=== PATIENT | male | born 1970 | race Caucasian/White ===

== ENCOUNTER 2022-03-03 23:38 | Observation (INO) | payer BC, SELFPAY ==
[2022-03-03 23:42] VITALS: BP 151/114; PULSE 87; O2SAT 100
[2022-03-04] VITALS (12 sets, daily range): BP systolic 137–173; BP diastolic 67–102; PULSE 60–94; RESP 16–24; TEMP 36.4–36.7; O2SAT 94–100; BMI 21.1
--- NOTE | 2022-03-04 00:04 | CRLHL7_ITS ---
For Patients: As a result of the Century Cures Act, medical imaging exams and procedure reports are released immediately into your electronic medical record. You may view this report before your referring provider. If you have questions, please contact your health care provider. INDICATION: Epigastric abdominal pelvic pain TECHNIQUE: CT Abdomen and pelvis with i.v. contrast. Coronal and sagittal reformats were obtained. CONTRAST: 71 mL Isovue 370 COMPARISON: None FINDINGS: Lower chest: Unremarkable. Liver: Unremarkable. Spleen: Unremarkable. Pancreas: There is a hypodense ill-defined lesion within the pancreatic head measuring 1.5 cm. Gallbladder: Unremarkable. Kidney: Unremarkable. No kidney or ureteral stones or obstruction seen. Adrenal: Unremarkable. Bowel: Moderate wall thickening of the gastric antrum is present. The appendix is not visualized. Vascular: Unremarkable. Lymph: Unremarkable. Peritoneum: Unremarkable. No pneumoperitoneum is seen. No significant ascites is noted. Pelvis: Unremarkable. Soft tissue: Unremarkable. Bone: Unremarkable for age. IMPRESSIONS: 1. Moderate wall thickening of the gastric antrum is present. This may be due to gastritis or peptic ulcer disease and confirmation with barium GI series or endoscopy is recommended. 2. There is a hypodense ill-defined lesion within the pancreatic head measuring 1.5 cm. Assessment with outpatient pancreatic MRI is recommended to exclude a pancreatic mass. Dictated by Hayden Gambino MD @ 03/04/2022 1:16:36 AM Please note that all CT scans at this facility use dose modulation, iterative reconstruction, and/or weight-based dosing when appropriate to reduce radiation dose to as low as reasonably achievable. Dictated by: Hayden Gambino MD @ 03/04/2022 01:16:39 (Electronically Signed)
[2022-03-04] MEDS: 0.9 % SODIUM CHLORIDE 1000 ml 1,000 ML IV (00:25)
[2022-03-04] MEDS: ONDANSETRON 2 MG/ML inj 4 MG IVP (00:25)
[2022-03-04] MEDS: HYDROmorphone 0.5 mg/0.5 ml inj 1 MG IVP (00:25)
[2022-03-04 00:35] LABS: Lactate Sepsis w/Reflex* 2.7 mmol/L (0.5-1.9)
[2022-03-04 00:36] LABS: Basophils Percent Auto 0.3 % (0.0-3.0); Eosinophils Percent Auto 1.8 % (0.0-7.0); Hematocrit 51.4 % (37.0-53.0); Hemoglobin* 17.9 gm/dL (13.5-17.5); Lymphocytes Percent Auto 15.7 % (20-44); Mean Corpuscular HGB Conc 35 gm/dL (32-36); Mean Corpuscular Hemoglobin 32 pg (26-34); Mean Corpuscular Volume 92 fL (80-100); Monocytes Percent Auto 3.4 % (0.0-11.0); Neutrophils Percent Auto 78.1 % (42.0-72.0); Platelet Count* 585 K/uL (140-440); RDW Coefficient of Variation % 13.5 % (11.5-15.5); White Blood Count* 14.81 K/uL (4.50-11.00)
[2022-03-04 00:37] LABS: Slide Review Reflex No
[2022-03-04 00:57] LABS: Albumin* 5.2 g/dL (3.3-5.0); Chloride* 100 mmol/L (96-114); Sodium* 141 mmol/L (135-149)
[2022-03-04 00:58] LABS: Potassium* 4.4 mmol/L (3.6-5.1)
[2022-03-04 00:59] LABS: Magnesium* 1.8 mg/dL (1.5-2.6)
[2022-03-04 01:00] LABS: Bilirubin Total* 0.5 mg/dL (0.1-1.5); Creatinine* 0.8 mg/dL (0.5-1.5); Estimated Glomerular Filt Rate 107 ml/min
[2022-03-04 01:01] LABS: Alanine Aminotransferase* 17 U/L (4-50); Alkaline Phosphatase* 88 U/L (40-150); Aspartate Amino Transferase* 30 U/L (12-35); Blood Urea Nitrogen* 13 mg/dL (7-30); Calcium* 10.4 mg/dL (8.4-10.6); Carbon Dioxide* 24 mmol/L (20-32); Glucose* 121 mg/dL (60-115); Total Protein* 9.5 g/dL (6.0-8.3)
[2022-03-04 01:03] LABS: Ethanol* < 0.01 % (0.01-0.03)
[2022-03-04 01:13] LABS: C Reactive Protein* < 0.5 mg/dL (0.5-1.0)
[2022-03-04 01:25] LABS: SARS PCR* Negative SARS-CoV-2 (Negative)
[2022-03-04 01:38] LABS: Lipase* 4043 U/L (23-300)
--- NOTE | 2022-03-04 01:41 | PC.NURSE ---
Patient reporting significant improvement in pain after pain medication. Rates pain 2/10.
--- NOTE | 2022-03-04 02:21 | ED.ABDPAIN ---
HPI - Abdominal Pain General Chief Complaint: Abdominal Pain Stated Complaint: Pancreatitis attack Time Seen by Provider: 03/03/22 23:51 Source: patient and RN notes reviewed Mode of arrival: ambulatory Limitations: no limitations History of Present Illness HPI narrative: 51-year-old man presenting to the emergency department with complaint of severe epigastric area pain. Began about 2 hours prior to presentation. He has had no fever. Does have nausea. Has not been vomiting. In November of this year apparently was hospitalized for pancreatitis overnight at [facility]. Since that time has had 2 more episodes of pancreatitis. He says his last 2 episodes actually occurred after 2 days without alcohol. Is is is generally drinking less than he used to and last drink was last night. Says intended to followup since hospitalization but just has not. Is not convinced of this pain correlates necessarily with alcohol consumption Related Data Home Medications Medication Instructions Recorded Confirmed No Known Home Medications 03/03/22 03/03/22 Allergies Allergy/AdvReac Type Severity Reaction Status Date / Time No Known Drug Allergies Allergy Verified 03/04/22 12:12 Review of Systems Status of ROS Reports: 6 or more systems reviewed and unremarkable except as noted in History and below [facility] Medical History (Updated 03/04/22 @ 16:37 by Lan Mchugh MD) Alcohol abuse Cholelithiasis Hypercholesteremia Obstructive sleep apnea Smoking Stroke Surgical History (Updated 03/04/22 @ 11:00 by Marcell Palma MD) History of carotid endarterectomy Social History Smoking Status: Current every day smoker What tobacco products do you use: cigarettes Second hand tobacco smoke exposure: Yes How often do you have a drink containing alcohol: 4 or more times a week How many standard drinks containing alcohol do you have on a typical day: 3 or 4 How often do you have six or more drinks on one occasion: Monthly AUDIT-C Alcohol total score: 7 Non-prescribed substance use: denies use Exam Narrative: Exam Narrative: Appropriately nourished. Mildly agitated in apparent severe pain he is pacing. Little breathless. Smells of cigarette smoke. Head is atraumatic. Oropharynx is little dry and hyperemic. Lungs with equal expansion excursion appear to be clear. Cardiovascular with regular rate and rhythm Abdomen with diminished bowel sounds is very tender in epigastrium. He resists exam. Guards. Extremities are well perfused and without edema. Moving without difficulty. Cranial nerves 2-12 intact. Speaking easily Const: Vital Signs, click to edit/add: Vital Signs - 24 hr 03/03/22 23:42 03/04/22 01:10 03/04/22 02:30 Pulse Rate [Right Pulse Oximeter] 87 91 91 Respiratory Rate 18 16 Blood Pressure [Ri ght Upper Arm] 151/114 H 138/67 159/91 H Pulse Oximetry 100 96 98 Oxygen Delivery Me thod Room Air Room Air Room Air Documenting provider has reviewed patient's vital signs: yes Course Course Hospital Course: Exam and interview as above. Established IV for pain relief. We will image as well as no baseline Reevaluation(s) Reevaluation #1: Markedly improved with initiation of fluids, Zofran and 1 mg of IV Dilaudid. Vital Signs Vital signs: Initial Vital Signs Pulse Rate 87 03/03/22 23:42 Blood Pressure 151/114 H 03/03/22 23:42 Blood Pressure Mean 126 03/03/22 23:42 Blood Pressure Position Sitting 03/03/22 23:42 Pulse Oximetry 100 03/03/22 23:42 Oxygen Delivery Method 03/03/22 23:42 Vital Signs Pulse Rate 87 03/03/22 23:42 Blood Pressure 151/114 H 03/03/22 23:42 Pulse Oximetry 100 03/03/22 23:42 Oxygen Delivery Method 03/03/22 23:42 Temperature 97.8 F 03/04/22 15:00 Pulse Rate 65 03/04/22 15:00 Respiratory Rate 16 03/04/22 15:00 Blood Pressure 153/90 H 03/04/22 15:00 Pulse Oximetry 95 03/04/22 15:00 Oxygen Delivery Method 03/04/22 15:00 MDM - Abdominal Pain MDM Narrative Medical decision making narrative: Will need imaging. I ordered and reviewed IV contrasted CT of abdomen and pelvis. IMPRESSIONS: 1. Moderate wall thickening of the gastric antrum is present. This may be due to gastritis or peptic ulcer disease and confirmation with barium GI series or endoscopy is recommended. 2. There is a hypodense ill-defined lesion within the pancreatic head measuring 1.5 cm. Assessment with outpatient pancreatic MRI is recommended to exclude a pancreatic mass. Dictated by Hayden Gambino MD @ 03/04/2022 1:16:36 AM White count is over 14,000 the and lipase is over 4000 He says this is the worst episode. I did review images. Concerning findings on CT noted by Radiology review requiring further imaging. This could be done outpatient however I would like to admit for further pain control and bowel rest. Further evaluation. Since he had not actually been vomiting I had not ordered a lactate and I do not see evidence of sepsis otherwise. Medical Records Attestation: I reviewed the patient's medical records. Lab Data Attestation: I reviewed the patient's lab results. Labs: Lab Results 03/04/22 03/04/22 03/04/22 Range/Units 00:25 00:25 00:25 WBC 14.81 H (4.50-11.00) K/uL RBC 5.60 (4.30-5.90) m/uL Hgb 17.9 H (13.5-17.5) gm/dL Hct 51.4 (37.0-53.0) % MCV 92 (80-100) fL MCH 32 (26-34) pg MCHC 35 (32-36) gm/dL RDW Coeff of Waldemar 13.5 (11.5-15.5) % Plt Count 585 H (140-440) K/uL Neut % (Auto) 78.1 H (42.0-72.0) % Lymph % (Auto) 15.7 L (20-44) % [place] % (Auto) 3.4 (0.0-11.0) % Eos % (Auto) 1.8 (0.0-7.0) % Baso % (Auto) 0.3 (0.0-3.0) % Neut # (Auto) 11.60 H (1.7-7.0) K/uL Lymph # (Auto) 2.30 (0.90-2.90) K/uL [place] # (Auto) 0.50 (0.00-0.90) K/UL Eos # (Auto) 0.30 (0.00-0.50) K/uL Baso # (Auto) 0.00 (0.00-0.30) K/uL Abs Immat Gran (auto) 0.10 (0.00-0.30) K/uL Sodium 141 (135-149) mmol/L Potassium 4.4 (3.6-5.1) mmol/L Chloride 100 (96-114) mmol/L Carbon Dioxide 24 (20-32) mmol/L BUN 13 (7-30) mg/dL Creatinine 0.8 (0.5-1.5) mg/dL Estimated GFR 107 ml/min Glucose 121 H (60-115) mg/dL Venous Lactic Acid (Serial Order) Calcium 10.4 (8.4-10.6) mg/dL Magnesium 1.8 (1.5-2.6) mg/dL Total Bilirubin 0.5 (0.1-1.5) mg/dL AST 30 (12-35) U/L ALT 17 (4-50) U/L Alkaline Phosphatase 88 (40-150) U/L C-Reactive Protein < 0.5 L (0.5-1.0) mg/dL Total Protein 9.5 H (6.0-8.3) g/dL Albumin 5.2 H (3.3-5.0) g/dL Lipase 4043 H (23-300) U/L Ethyl Alcohol < 0.01 L (0.01-0.03) % SARS-CoV-2 (PCR) (Negative) 03/04/22 03/04/22 Range/Units 00:25 00:25 WBC (4.50-11.00) K/uL RBC (4.30-5.90) m/uL Hgb (13.5-17.5) gm/dL Hct (37.0-53.0) % MCV (80-100) fL MCH (26-34) pg MCHC (32-36) gm/dL RDW Coeff of Waldemar (11.5-15.5) % Plt Count (140-440) K/uL Neut % (Auto) (42.0-72.0) % Lymph % (Auto) (20-44) % [place] % (Auto) (0.0-11.0) % Eos % (Auto) (0.0-7.0) % Baso % (Auto) (0.0-3.0) % Neut # (Auto) (1.7-7.0) K/uL Lymph # (Auto) (0.90-2.90) K/uL [place] # (Auto) (0.00-0.90) K/UL Eos # (Auto) (0.00-0.50) K/uL Baso # (Auto) (0.00-0.30) K/uL Abs Immat Gran (auto) (0.00-0.30) K/uL Sodium (135-149) mmol/L Potassium (3.6-5.1) mmol/L Chloride (96-114) mmol/L Carbon Dioxide (20-32) mmol/L BUN (7-30) mg/dL Creatinine (0.5-1.5) mg/dL Estimated GFR ml/min Glucose (60-115) mg/dL Venous Lactic Acid (Serial Order) Calcium (8.4-10.6) mg/dL Magnesium (1.5-2.6) mg/dL Total Bilirubin (0.1-1.5) mg/dL AST (12-35) U/L ALT (4-50) U/L Alkaline Phosphatase (40-150) U/L C-Reactive Protein (0.5-1.0) mg/dL Total Protein (6.0-8.3) g/dL Albumin (3.3-5.0) g/dL Lipase (23-300) U/L Ethyl Alcohol (0.01-0.03) % SARS-CoV-2 (PCR) Negative SARS-CoV-2 (Negative) IV contrasted CT of abdomen and pelvis IMPRESSIONS: 1. Moderate wall thickening of the gastric antrum is present. This may be due to gastritis or peptic ulcer disease and confirmation with barium GI series or endoscopy is recommended. 2. There is a hypodense ill-defined lesion within the pancreatic head measuring 1.5 cm. Assessment with outpatient pancreatic MRI is recommended to exclude a pancreatic mass. Dictated by Hayden Gambino MD @ 03/04/2022 1:16:36 AM Please note that all CT scans at this facility use dose modulation, iterative reconstruction, and/or weight-based dosing when appropriate to reduce radiation dose to as low as reasonably achievable. Dictated by: Hayden Gambino MD @ 03/04/2022 01:16:39 Discharge Plan Discharge Clinical Impression: Abdominal pain, Acute pancreatitis
[2022-03-04] MEDS: LACTATED RINGERS 1000 ML 1,000 ML IV (02:46)
--- NOTE | 2022-03-04 04:15 | PC.NURSE ---
Report to m/s RN.
--- NOTE | 2022-03-04 06:14 | PC.NURSE ---
Admitted today at 0430 from the ED with abdominal pain. Patient on arrival Still having abd pain but manageable. Vitals- elevated SBP otherwise stable. Afebrile. Pain rating at 2/10; received Dilaudid in the ED. Alert and oriented x4. Lngs clear. Self ambulatory in the room without any difficulties. Maintaining clear liquid diet. Will continue to monitor and assess
--- NOTE | 2022-03-04 07:20 | W.PM.CROSSCO ---
Assessment and Plan Assessment and plan (1) Pancreatitis: Status: Acute (2) Hypertension: Status: Acute Plan [facility] eHospitalist note 51-year-old male presents with abdominal pain. Very severe in nature. Onset the night prior. Feels like pancreatitis pain that he has had in the past. He does continue to drink alcohol but reports he has cut down significantly and he no longer drinks daily but has trouble quantifying the amount he is currently is drinking. Denies history of alcohol withdrawal.. His original episode of pancreatitis was treated at the [facility] in November of this year. He since has stopped a few medications he was taking for blood pressure that can cause pancreatitis. In the emergency department he had a thorough evaluation including a CT abdomen pelvis with moderate wall thickening of the gastric antrum possibly due to gastritis or peptic ulcer disease consider endoscopy or barium GI series. Also hypodense ill-defined lesion within the pancreatic head measuring 1.5 cm. Assessment with outpatient pancreatic MRI is recommended. Laboratory studies include a lipase of 4043. Alcohol is undetectable COVID is negative. Of note his total protein is quite high at 9.5. CRP is a 7.5. LFTs are within normal limits. As his renal function. CBC with multiple abnormalities including a WBC of 14.8, hemoglobin of 17.9 and platelet count of 585. Home Medications: see EMR Pertinent Medical History: Pancreatitis, alcohol use, hypertension Exam (performed via interactive video with assistance of bedside nurse): General: alert, cooperative, no acute distress Lungs: clear to auscultation bilaterally without crackle or wheeze CV: regular rate and rhythm without loud murmur rub or gallop Abd: minimal tenderness with palpation done by bedside nurse Ext: no pitting edema noted Assessment and Plan Pancreatitis ? strict NPO, LR @150, PRN dilaudid and Zofran. Discussed importance of eliminating alcohol as a factor. Pancreatic head lesion -Needs MRCP ? possibly outpatient. Requested records from the [facility] Gastric thickening ? IV protonix daily, consider EGD Alcohol use. ? unclear current usage, ciwa not ordered but could be considered along with chem dep consult if available. Leukocytosis, erythrocytosis, thrombocytosis, elevated protein ? suspect related to dehydration and acute illness but will need followup outpatient as well to ensure no myeloproliferative process.
[2022-03-04] MEDS: LACTATED RINGERS 1000 ML 1,000 ML 250 ML IV (08:24)
[2022-03-04] MEDS: LACTATED RINGERS 1000 ML 1,000 ML 150 ML IV (08:24)
--- NOTE | 2022-03-04 08:28 | CRLHL7_ITS ---
For Patients: As a result of the Century Cures Act, medical imaging exams and procedure reports are released immediately into your electronic medical record. You may view this report before your referring provider. If you have questions, please contact your health care provider. Indication: Pancreatic lesion on CT. History of pancreatitis. Technique: MRI of the abdomen without and with 20 cc Dotarem IV contrast. Comparison: CT of the abdomen and pelvis 03/04/2022. Findings: Non cirrhotic configuration of the liver. No hepatic steatosis. There are two small benign hemangiomas in the lateral segment of the left hepatic lobe. No suspicious liver lesions. Hepatic and portal veins are patent. The gallbladder, spleen, and adrenal glands are negative. No biliary dilation. There is a 1.7 x 1.6 x 2.1 cm lesion in the pancreatic head which demonstrates heterogeneous T1 and T2 signal with no appreciable post-contrast enhancement (series 8 image 19, series 5 image 15, series 12 image 38, series 16 image 42). There is a focus of diffusion restriction along the left aspect of the lesion. Mild atrophy of the upstream pancreatic parenchyma. The upstream pancreatic duct is mildly prominent measuring 3 mm in diameter. No significant peripancreatic inflammation. Symmetric enhancement of the kidneys. No hydronephrosis. No bowel dilation. Moderate wall thickening of the gastric antrum. There is a subcentimeter T2 isointense rim enhancing lesion along the wall of the proximal transverse duodenum (series 8 image 27 and series 14 image 56). No free fluid or lymphadenopathy in the upper abdomen. Impression: 1. 1.7 x 1.6 x 2.1 cm heterogeneous lesion in the pancreatic head with no appreciable post-contrast enhancement. Upstream pancreatic parenchymal atrophy and mild prominence of the pancreatic duct. Differential considerations include a complex pseudocyst/side-branch IPMN or other cystic neoplasm. Recommend further evaluation with EUS. 2. Moderate wall thickening of the gastric antrum. 3. Subcentimeter lesion along the wall of the proximal transverse duodenum. This could be further evaluated with endoscopy. 4. Findings discussed with Molly Palma at 1:01 p.m. on 03/04/2022. Dictated by Karine Bryant MD @ 03/04/2022 1:09:54 PM (Electronically Signed)
[2022-03-04] MEDS: PANTOPRAZOLE SODIUM 40 MG INJ IVP (09:18)
[2022-03-04 09:21] LABS: Basophils Percent Auto 0.2 % (0.0-3.0); Eosinophils Percent Auto 3.4 % (0.0-7.0); Hematocrit 43.6 % (37.0-53.0); Immature Granulocytes Abs Auto 0.01 K/uL (0.00-0.30); Lymphocytes Percent Auto 21.2 % (20-44); Mean Corpuscular HGB Conc 34 gm/dL (32-36); Mean Corpuscular Hemoglobin 32 pg (26-34); Mean Corpuscular Volume 93 fL (80-100); Monocytes Percent Auto 5.7 % (0.0-11.0); Neutrophils Percent Auto 69.4 % (42.0-72.0); Platelet Count* 443 K/uL (140-440); RDW Coefficient of Variation % 13.3 % (11.5-15.5); Red Blood Count 4.67 m/uL (4.30-5.90); White Blood Count* 13.43 K/uL (4.50-11.00)
[2022-03-04 09:27] LABS: Slide Review Reflex No
[2022-03-04 09:54] LABS: Albumin* 3.7 g/dL (3.3-5.0)
[2022-03-04] MEDS: HYDROmorphone 0.5 mg/0.5 ml inj IVP ×4 (09:54→23:23)
[2022-03-04 09:55] LABS: Chloride* 102 mmol/L (96-114); Potassium* 3.9 mmol/L (3.6-5.1); Sodium* 135 mmol/L (135-149)
[2022-03-04 09:57] LABS: Aspartate Amino Transferase* 23 U/L (12-35); Bilirubin Total* 0.5 mg/dL (0.1-1.5); Carbon Dioxide* 24 mmol/L (20-32); Creatinine* 0.6 mg/dL (0.5-1.5); Est. Creatinine Clearance* 141.21; Estimated Glomerular Filt Rate 117 ml/min; Total Protein* 6.8 g/dL (6.0-8.3)
[2022-03-04 09:58] LABS: Alanine Aminotransferase* 11 U/L (4-50); Alkaline Phosphatase* 57 U/L (40-150); Blood Urea Nitrogen* 12 mg/dL (7-30); Calcium* 8.6 mg/dL (8.4-10.6); Glucose* 99 mg/dL (60-115)
--- NOTE | 2022-03-04 10:43 | P.IMHP_ITS ---
Hospitalist- H&P: HPI History of Present Illness Date Seen: 03/04/22 Chief complaint: Pancreatitis attack Narrative: Eduardo Morillo is a 51 year old male admitted through the emergency department with epigastric pain that began last evening. Patient reports that he was feeling fine yesterday. He was eating a normal diet. He had no symptoms of illness. Last evening he began to have epigastric pain which became increasingly severe. He reports this pain is similar to previous episodes of pancreatitis. He was hospitalized at [facility] in November for pancreatitis. At that time he was found to have gallstones without evidence of obstruction. It was felt his pancreatitis was more likely due to alcohol though he was referred to General surgery at discharge. He did have a consult for cholelithiasis with General surgery. At that time recommendation was monitoring for symptoms of bili obstruction from gallstones and abstinence from alcohol. Patient continues to smoke cigarettes and continues to drink alcohol. He reports he has not drink daily. He has not had problems with alcohol withdrawal. Patient reports no postprandial symptoms such as pain, nausea, vomiting. He has had no change in the appearance of his stools. He is noted to have thickening of the gastric antrum on CT scan. Also noted is a 1.5 cm poorly defined lesion in the head of the pancreas. Further evaluation is recommended by the radiologist. Review of Systems Narrative: Patient reports he has been generally doing well up until the onset of epigastric pain last night. He has been eating normally. He has had no fever. No shortness of breath cough or chest pain. The epigastric pain does radiate to his flank sent to his back to some degree. [facility] Medical History (Updated 03/04/22 @ 11:05 by Marcell Palma MD) Alcohol abuse Cholelithiasis Hypercholesteremia Obstructive sleep apnea Smoking Stroke Surgical History (Updated 03/04/22 @ 11:00 by Marcell Palma MD) History of carotid endarterectomy Social History Smoking Status: Current every day smoker What tobacco products do you use: cigarettes Second hand tobacco smoke exposure: Yes How often do you have a drink containing alcohol: 4 or more times a week How many standard drinks containing alcohol do you have on a typical day: 3 or 4 How often do you have six or more drinks on one occasion: Monthly AUDIT-C Alcohol total score: 7 Non-prescribed substance use: denies use Meds Home Medications and Allergies Home Medications Medication Instructions Recorded Confirmed Type No Known Home Medications 03/03/22 03/03/22 History Allergies Allergy/AdvReac Type Severity Reaction Status Date / Time No Known Drug Allergies Allergy Verified 03/03/22 23:48 Exam Narrative: Exam Narrative: He is alert and appears in no obvious distress. He gives his own history. Eyes are normal. Sclerae nonicteric. Oropharynx with dry mucous membranes. Neck is supple without mass or adenopathy. No tenderness. Respirations are clear to auscultation. He has decreased breath sounds. No wheezing rales or rhonchi. Cardiovascular: S1, S2, regular rate and rhythm. No murmur gallop or rub. Abdomen: Bowel sounds are active. Abdomen is soft. He has mild to moderate epigastric tenderness. No palpable mass. No peritonitis. Extremities with intact pulses and sensation. Has no edema. He moves all 4 extremities well. No rash. No jaundice. Const: Vital Signs, click to edit/add: Vital Signs - 24 hr 03/03/22 23:42 03/04/22 01:10 03/04/22 02:30 Temperature Pulse Rate [Bilate ral Dorsalis Pedis ] Pulse Rate [Pulse Oximeter] Pulse Rate [Right Pulse Oximeter] 87 91 91 Respiratory Rate 18 16 Blood Pressure [Le ft Arm] Blood Pressure [Ri ght Upper Arm] 151/114 H 138/67 159/91 H Pulse Oximetry 100 96 [facility] 03/04/22 04:00 03/04/22 05:46 03/04/22 05:49 Temperature 97.7 F 97.7 F Pulse Rate [Bilate ral Dorsalis Pedis ] Pulse Rate [Pulse Oximeter] 68 68 Pulse Rate [Right Pulse Oximeter] 80 Respiratory Rate 16 16 16 Blood Pressure [Le ft Arm] 169/91 H 169/91 H Blood Pressure [Ri ght Upper Arm] 162/102 H Pulse Oximetry 98 98 97 Oxygen Delivery De thod Room Air Room Air Room Air 03/04/22 06:10 03/04/22 06:36 03/04/22 07:00 Temperature 97.7 F Pulse Rate [Bilate ral Dorsalis Pedis ] 73 Pulse Rate [Pulse Oximeter] 68 Pulse Rate [Right Pulse Oximeter] Respiratory Rate 16 16 Blood Pressure [Le ft Arm] 169/91 H Blood Pressure [Ri ght Upper Arm] Pulse Oximetry 97 97 Oxygen Delivery Me thod Room Air Room Air 03/04/22 07:00 Temperature 98.1 F Pulse Rate [Bilate ral Dorsalis Pedis ] Pulse Rate [Pulse Oximeter] Pulse Rate [Right Pulse Oximeter] Respiratory Rate 16 Blood Pressure [Le ft Arm] 169/88 H Blood Pressure [Ri ght Upper Arm] Pulse Oximetry 99 Oxygen Delivery Me thod Room Air Documenting provider has reviewed patient's vital signs: yes Hospitalist - H&P: Result Labs Labs: Short CBC 03/04/22 03/04/22 Range/Units 00:25 09:10 WBC 14.81 H 13.43 H (4.50-11.00) K/uL Hgb 17.9 H 15.0 (13.5-17.5) gm/dL Hct 51.4 43.6 (37.0-53.0) % Plt Count 585 H 443 H (140-440) K/uL BMP 03/04/22 03/04/22 00:25 09:10 Sodium 141 135 Potassium 4.4 3.9 Chloride 100 102 Carbon Dioxide 24 24 BUN 13 12 Creatinine 0.8 0.6 Glucose 121 H 99 Calcium 10.4 8.6 Liver Function 03/04/22 03/04/22 Range/Units 00:25 09:10 Total Bilirubin 0.5 0.5 (0.1-1.5) mg/dL AST 30 23 (12-35) U/L ALT 17 11 (4-50) U/L Alkaline Phosphatase 88 57 (40-150) U/L Albumin 5.2 H 3.7 (3.3-5.0) g/dL Imaging CT scan - abdomen: Radiologist's impression: [place] [address] Diagnostic Imaging Report Patient: Eduardo Morillo MR#: [id number] : 1970 Acct:[id number] Loc: ED Service Date: 03/04/[address]: Ordering Physician: Lan Mchugh MD Date of Service: 03/04/22 Procedure(s): CT abdomen pelvis w con Accession Number(s): [id number] cc: Lan Mchugh MD~ For Patients:? As a result of the Century Cures Act, medical imaging exams and procedure reports are released immediately into your electronic medical record.? You may view this report before your referring provider.? If you have questions, please contact your health care provider. INDICATION: Epigastric abdominal pelvic pain TECHNIQUE: CT Abdomen and pelvis with i.v. contrast. Coronal and sagittal reformats were obtained. CONTRAST: 71 mL Isovue 370 COMPARISON: None FINDINGS: Lower chest: Unremarkable. Liver: Unremarkable. Spleen: Unremarkable. Pancreas: There is a hypodense ill-defined lesion within the pancreatic head measuring 1.5 cm. Gallbladder: Unremarkable. Kidney: Unremarkable. No kidney or ureteral stones or obstruction seen. Adrenal: Unremarkable. Bowel: Moderate wall thickening of the gastric antrum is present. The appendix is not visualized. Vascular: Unremarkable. Lymph: Unremarkable. Peritoneum: Unremarkable. No pneumoperitoneum is seen. No significant ascites is noted. Pelvis: Unremarkable. Soft tissue: Unremarkable. Bone: Unremarkable for age. IMPRESSIONS: 1. Moderate wall thickening of the gastric antrum is present. This may be due to gastritis or peptic ulcer disease and confirmation with barium GI series or endoscopy is recommended. 2. There is a hypodense ill-defined lesion within the pancreatic head measuring 1.5 cm. Assessment with outpatient pancreatic MRI is recommended to exclude a pancreatic mass. Dictated by Hayden Gambino MD @ 03/04/2022 1:16:36 AM Please note that all CT scans at this facility use dose modulation, iterative reconstruction, and/or weight-based dosing when appropriate to reduce radiation dose to as low as reasonably achievable. Dictated by: Hayden Gambino MD @ 03/04/2022 01:16:39 Assessment and Plan Assessment and plan (1) Pancreatitis: Status: Acute Assessment and Plan: Most likely due to alcohol abuse. Other considerations including gallstone pancreatitis or pancreatitis related to lesion in the pancreas. Obtained pancreatic MRI to evaluate. IV fluids, clear liquid diet, pain medication. (2) Alcohol abuse: Status: Acute Assessment and Plan: Recommend that he stop drinking. Ongoing alcohol use in the context of recurrent pancreatitis remains a concern (3) Cholelithiasis: Status: Acute Assessment and Plan: Monitor for evidence of biliary obstruction (4) Smoking: Status: Acute Assessment and Plan: Another risk factor for pancreatitis (5) Hypertension: Status: Acute Assessment and Plan: Previously on blood pressure medications which were stopped due to concern about pancreatitis (6) Pancreatic lesion: Status: Acute Assessment and Plan: MRI of pancreas to evaluate (7) Abnormal laboratory test result: Status: Acute Assessment and Plan: Patient has elevated hemoglobin which may be related to smoking. Other lab suggest hemoconcentration. Continue hydration and recheck in the morning. Plan Patient is admitted for pain control, IV fluids, further evaluation. Total time spent today is 80 minutes, 50 minutes in coordination of care and discussing with patient and other providers management of pancreatitis, alcohol abuse, findings on CT.
--- NOTE | 2022-03-04 15:15 | PC.NURSE ---
Admitted today at 0430 from the ED with abdominal pain. Pt. rates pain 6/10 IV Dilauded PRN administered, pt. able to rest. Afebrile. Alert and oriented x4. Lngs clear. Self ambulatory in the room without any difficulties. Maintaining clear liquid diet. Will continue to monitor and assess
[2022-03-04] MEDS: OMEPRAZOLE 20 MG CAPSULE DR PO (21:20)
[2022-03-04] MEDS: OXYCODONE 5 MG TABLET PO (21:30)
[2022-03-05] VITALS (8 sets, daily range): BP systolic 127–181; BP diastolic 76–100; PULSE 66–88; RESP 18–20; TEMP 36.6–37; O2SAT 94–100
[2022-03-05] MEDS: HYDROmorphone 0.5 mg/0.5 ml inj IVP ×7 (01:10→21:52)
[2022-03-05] MEDS: LACTATED RINGERS 1000 ML 1,000 ML 125 ML IV ×3 (02:17→21:46)
--- NOTE | 2022-03-05 06:42 | PM.IMPN1 ---
Subjective Date Seen: 03/05/22 Interval history: Carlyle Ledesmaist Cross Cover Note eHospitalist was contacted by nursing staff with concern of being uncontrolled however patient refusing oral medication stating that it does not help his pain. Dilaudid 1 mg IV x1 ordered and oxycodone changed to 5 to 10 mg every 2 hours. Further pain management per rounding provider. Thank you for including Carlyle Adams in the patients care. This service is available for further assistance as requested by your care team by calling [phone]. Exam Const: Vital Signs, click to edit/add: Vital Signs - 24 hr 03/04/22 07:00 03/04/22 07:00 03/04/22 11:00 Temperature 98.1 F 97.8 F Pulse Rate [Bilate ral Dorsalis Pedis ] 73 Pulse Rate [Pulse Oximeter] 68 72 Respiratory Rate 16 16 16 Blood Pressure [Le ft Arm] 169/88 H 157/98 H Pulse Oximetry 99 99 Oxygen Delivery Me thod Room Air Room Air 03/04/22 15:00 03/04/22 15:00 03/04/22 19:00 Temperature 97.8 F 97.6 F Pulse Rate [Bilate ral Dorsalis Pedis ] Pulse Rate [Pulse Oximeter] 65 65 94 Respiratory Rate 16 16 24 Blood Pressure [Le ft Arm] 153/90 H 137/86 Pulse Oximetry 95 94 Oxygen Delivery Me thod Room Air Room Air 03/05/22 01:37 03/04/22 23:00 03/05/22 02:37 Temperature 97.8 F 97.6 F 97.8 F Pulse Rate [Bilate ral Dorsalis Pedis ] Pulse Rate [Pulse Oximeter] 66 60 66 Respiratory Rate 18 24 20 Blood Pressure [Le ft Arm] 163/98 H 173/97 H 163/98 H Pulse Oximetry 94 100 94 Oxygen Delivery Me thod Room Air Room Air Room Air 03/05/22 03:00 Temperature 97.8 F Pulse Rate [Bilate ral Dorsalis Pedis ] Pulse Rate [Pulse Oximeter] 66 Respiratory Rate 20 Blood Pressure [Le ft Arm] 163/98 H Pulse Oximetry 94 Oxygen Delivery Me thod Room Air Labs Labs: Laboratory Results - last 24 hr 03/04/22 03/04/22 09:10 09:10 WBC 13.43 H RBC 4.67 Hgb 15.0 Hct 43.6 MCV 93 MCH 32 MCHC 34 RDW Coeff of Waldemar 13.3 Plt Count 443 H Neut % (Auto) 69.4 Lymph % (Auto) 21.2 [place] % (Auto) 5.7 Eos % (Auto) 3.4 Baso % (Auto) 0.2 Neut # (Auto) 9.30 H Lymph # (Auto) 2.80 [place] # (Auto) 0.80 Eos # (Auto) 0.50 Baso # (Auto) 0.00 Abs Immat Gran (auto) 0.01 Sodium 135 Potassium 3.9 Chloride 102 Carbon Dioxide 24 BUN 12 Creatinine 0.6 Estimated Creat Clear 141.21 Estimated GFR 117 Glucose 99 Calcium 8.6 Total Bilirubin 0.5 AST 23 ALT 11 Alkaline Phosphatase 57 Total Protein 6.8 Albumin 3.7
--- NOTE | 2022-03-05 07:20 | PC.NURSE ---
shift [id number] Pt this shift struggled with intense epigastric pain, requiring Dilaudid 0.5mg every 1.5 hours and pt requesting pain meds sooner than due. Pt adamant that oxycodone does nothing for the pain and refuses to take it. Updated Carlyle regarding pain control, see eMAR. Pt was SL and placed on clear liquids earlier in the day. Liquids seems to aggravate the pain. Pt seen pacing the room, thrashing in bed, rubbing face and neck, tremoring, showing chills. Denies hx of alcohol withdrawal, however, pt restless and agitated, but adamant about not taking ativan. Notified Carlyle DAVENPORT about SS and VS. YEVGENIYWA's protocol ordered, LR 125ml/hr. Pt up independent in room. Denies nausea, headache, and hallucinations.
[2022-03-05 07:35] LABS: Albumin* 4.1 g/dL (3.3-5.0); Chloride* 103 mmol/L (96-114)
[2022-03-05 07:36] LABS: Potassium* 3.8 mmol/L (3.6-5.1); Sodium* 136 mmol/L (135-149)
[2022-03-05 07:38] LABS: Alkaline Phosphatase* 66 U/L (40-150); Aspartate Amino Transferase* 27 U/L (12-35); Bilirubin Total* 0.8 mg/dL (0.1-1.5); Blood Urea Nitrogen* 6 mg/dL (7-30); Carbon Dioxide* 23 mmol/L (20-32); Creatinine* 0.6 mg/dL (0.5-1.5); Est. Creatinine Clearance* 141.21; Estimated Glomerular Filt Rate 117 ml/min; Total Protein* 7.4 g/dL (6.0-8.3)
[2022-03-05 07:39] LABS: Alanine Aminotransferase* 14 U/L (4-50); Calcium* 9.3 mg/dL (8.4-10.6); Glucose* 118 mg/dL (60-115)
[2022-03-05 07:42] LABS: Basophils Percent Auto 0.3 % (0.0-3.0); Eosinophils Percent Auto 3.3 % (0.0-7.0); Hematocrit 46.5 % (37.0-53.0); Hemoglobin* 16.2 gm/dL (13.5-17.5); Immature Granulocytes Abs Auto 0.02 K/uL (0.00-0.30); Lymphocytes Percent Auto 17.3 % (20-44); Mean Corpuscular HGB Conc 35 gm/dL (32-36); Mean Corpuscular Hemoglobin 32 pg (26-34); Mean Corpuscular Volume 92 fL (80-100); Monocytes Percent Auto 4.7 % (0.0-11.0); Neutrophils Percent Auto 74.2 % (42.0-72.0); Platelet Count* 332 K/uL (140-440); RDW Coefficient of Variation % 13.1 % (11.5-15.5); Red Blood Count 5.04 m/uL (4.30-5.90); White Blood Count* 13.06 K/uL (4.50-11.00)
[2022-03-05 07:44] LABS: Slide Review Reflex No
[2022-03-05 07:56] LABS: Lipase* 5679 U/L (23-300)
[2022-03-05] MEDS: HYDROmorphone 0.5 mg/0.5 ml inj 1 MG IVP (08:33)
--- NOTE | 2022-03-05 13:33 | P.IMPN_ITS ---
Progress Note: A&P Assessment and plan (1) Pancreatitis: Problem details: Underlying cause is likely alcohol abuse. However, MRI of the pancreas shows a poorly defined lesion at the head of the pancreas. I spoke to resource specialist teacher at [facility] who recommended delayed outpatient endoscopic ultrasound in 4-6 weeks after the pancreatitis has resolved. Status: Acute (2) Alcohol abuse: Problem details: Patient was informed that absence from alcohol will be necessary to prevent future recurrences. Status: Acute Assessment and Plan: Currently no significant alcohol withdrawal. (3) Cholelithiasis: Problem details: Outpatient evaluation felt this is not related to recent pancreatitis problems Status: Acute Assessment and Plan: Not thought to be the cause of current illness (4) Smoking: Problem details: Likely contributes to pancreatitis risk Status: Acute (5) Hypertension: Problem details: Complicated by alcohol abuse Status: Acute (6) Pancreatic lesion: Problem details: [place] resource specialist teacher recommends outpatient endoscopic ultrasound in 4-6 weeks after pancreatitis has resolved Status: Acute (7) Abnormal laboratory test result: Status: Acute Plan Continue in hospital for pain control, IV fluids. Plan for outpatient follow-up with endoscopic ultrasound in 1 month Time Spent With Patient Total time spent: Total time spent is 40 minutes, 30 minutes in coordination care and discussing with patient and other providers evaluation management of pancreatitis, pancreatic lesion, alcohol abuse and pain management Subjective Date Seen: 03/05/22 Interval history: 51-year-old male seen in followup of hospital admission for pancreatitis. Patient reports he is feeling better yesterday during the day and was taking in some clear liquids. Last night he began to feel worse and required increasing amounts of hydromorphone for pain. He did not feel oxycodone was effective for his pain. He has not had any vomiting. He has not had a fever. I discussed with the patient results of his evaluation including the lesion in the head of the pancreas. This will require endoscopic ultrasound done an outpatient basis. Exam Narrative: Exam Narrative: He is alert and appears in no distress. Respirations are clear to auscultation. Cardiovascular: S1, S2, regular rate and rhythm. Abdomen: Bowel sounds are diminished. Abdomen is soft. He has mild to moderate epigastric and right upper quadrant tenderness and mild diffuse tenderness. No mass. No peritonitis. No edema Const: Vital Signs, click to edit/add: Vital Signs - 24 hr 03/04/22 15:00 03/04/22 15:00 03/04/22 19:00 Temperature 97.8 F 97.6 F Pulse Rate [Pulse Oximeter] 65 65 94 Respiratory Rate 16 16 24 Blood Pressure [Le ft Arm] 153/90 H 137/86 Pulse Oximetry 95 94 Oxygen Delivery Me thod Room Air Room Air 03/05/22 01:37 03/04/22 23:00 03/05/22 02:37 Temperature 97.8 F 97.6 F 97.8 F Pulse Rate [Pulse Oximeter] 66 60 66 Respiratory Rate 18 24 20 Blood Pressure [Le ft Arm] 163/98 H 173/97 H 163/98 H Pulse Oximetry 94 100 94 Oxygen Delivery Me thod Room Air Room Air Room Air 03/05/22 03:00 03/05/22 08:00 03/05/22 11:00 Temperature 97.8 F 98.6 F 98.4 F Pulse Rate [Pulse Oximeter] 66 88 88 Respiratory Rate 20 20 18 Blood Pressure [Le ft Arm] 163/98 H 181/92 H 127/76 Pulse Oximetry 94 100 100 Oxygen Delivery Me thod Room Air Room Air Room Air 03/05/22 12:00 Temperature 98.6 F Pulse Rate [Pulse Oximeter] 88 Respiratory Rate 18 Blood Pressure [Le ft Arm] 181/92 H Pulse Oximetry 100 Oxygen Delivery Me thod Room Air Documenting provider has reviewed patient's vital signs: yes Labs Labs: Laboratory Results - last 24 hr 03/05/22 03/05/22 06:45 06:45 WBC 13.06 H RBC 5.04 Hgb 16.2 Hct 46.5 MCV 92 MCH 32 MCHC 35 RDW Coeff of Waldemar 13.1 Plt Count 332 Neut % (Auto) 74.2 H Lymph % (Auto) 17.3 L [place] % (Auto) 4.7 Eos % (Auto) 3.3 Baso % (Auto) 0.3 Neut # (Auto) 9.70 H Lymph # (Auto) 2.30 [place] # (Auto) 0.60 Eos # (Auto) 0.40 Baso # (Auto) 0.00 Abs Immat Gran (auto) 0.02 Sodium 136 Potassium 3.8 Chloride 103 Carbon Dioxide 23 BUN 6 L Creatinine 0.6 Estimated Creat Clear 141.21 Estimated GFR 117 Glucose 118 H Calcium 9.3 Total Bilirubin 0.8 AST 27 ALT 14 Alkaline Phosphatase 66 Total Protein 7.4 Albumin 4.1 Lipase 5679 H
--- NOTE | 2022-03-05 15:34 | PC.NURSE ---
Pt c/o severe pain at initial assessment 8 out of 10, bp elevated and pt appeared restless. New IV site inserted and pt received 1mg dilaudid, IVF continue. Ice chips sparingly, pt did not order bkfst or lunch. I didn't sleep well, rested patch allowed brief period of rest. Pain 5 out of 10 when pt rechecked. Pain 3 out of 10 after last dose of 1mg dilaudid given shortly before noon. Pt is UAL, adequate urine output. Report to Lashay Peres RN
[2022-03-05] MEDS: OMEPRAZOLE 20 MG CAPSULE DR PO (21:46)
[2022-03-06 01:50] VITALS: BP 157/94; PULSE 73; RESP 16; TEMP 36.9; O2SAT 98
[2022-03-06] MEDS: HYDROmorphone 0.5 mg/0.5 ml inj IVP (02:06)
[2022-03-06 03:00] VITALS: BP 170/97; PULSE 68; RESP 16; TEMP 36.7; O2SAT 96
[2022-03-06] MEDS: LACTATED RINGERS 1000 ML 1,000 ML 125 ML IV (03:19)
[2022-03-06 07:10] LABS: Basophils Absolute Auto 0.04 K/uL (0.00-0.30); Basophils Percent Auto 0.4 % (0.0-3.0); Eosinophils Absolute Auto 0.68 K/uL (0.00-0.50); Eosinophils Percent Auto 6.6 % (0.0-7.0); Hematocrit 47.1 % (37.0-53.0); Hemoglobin* 16.2 gm/dL (13.5-17.5); Immature Granulocytes Abs Auto 0.01 K/uL (0.00-0.30); Lymphocytes Absolute Auto 2.53 K/uL (0.90-2.90); Lymphocytes Percent Auto 24.6 % (20-44); Mean Corpuscular HGB Conc 34 gm/dL (32-36); Mean Corpuscular Hemoglobin 32 pg (26-34); Mean Corpuscular Volume 94 fL (80-100); Monocytes Percent Auto 6.2 % (0.0-11.0); Neutrophils Absolute Auto 6.37 K/uL (1.7-7.0); Neutrophils Percent Auto 62.1 % (42.0-72.0); Platelet Count* 476 K/uL (140-440); RDW Coefficient of Variation % 13.1 % (11.5-15.5); Red Blood Count 5.01 m/uL (4.30-5.90); White Blood Count* 10.27 K/uL (4.50-11.00)
[2022-03-06 07:31] LABS: Slide Review Reflex No
--- NOTE | 2022-03-06 07:31 | PC.NURSE ---
END OF SHIFT NOTE: PT PLEASANT AND COOPERATIVE. PT MOVES INDEPENDENTLY IN ROOM. CIWA'S SCORE 0 THROUGHOUT SHIFT. PT RATES ABDOMINAL PAIN 2-5/10, WITH RELIEF FROM PRN DILAUDID. LSCTA. PT DENIES CP, SOB, N/V. VSS ON RA; AFEBRILE.
[2022-03-06 08:00] VITALS: BP 121/97; PULSE 73; RESP 18; TEMP 36.7; O2SAT 99
[2022-03-06] MEDS: OMEPRAZOLE 20 MG CAPSULE DR PO (08:11)
[2022-03-06] MEDS: THIAMINE 100 MG TABLET PO (08:11)
--- NOTE | 2022-03-06 09:15 | NUTR.NU ---
RDN with diet education for pancreatitis. Patient admitted for pancreatitis attack. Patient agreed to receive diet education related to pancreatitis. Patient was provided diet education on a low fat diet. Discussed foods to include and foods to avoid. Education also provided following a low fat diet (about 60 grams/day) long-term. Verbal and written information as well as a sample menu provided from [facility]. Patient verbalized understanding. RDN's contact information was provided and patient was encouraged to contact RDN with questions.
[2022-03-06] MEDS: ACETAMINOPHEN 500 MG TABLET 1000 MG PO (09:58)
--- NOTE | 2022-03-06 10:24 | PM.IMPN1 ---
Progress Note: A&P Assessment and plan (1) Pancreatitis: Problem details: Underlying cause is likely alcohol abuse. However, MRI of the pancreas shows a poorly defined lesion at the head of the pancreas. I spoke to hydraulic auto jack mechanic at [facility] who recommended delayed outpatient endoscopic ultrasound in 4-6 weeks after the pancreatitis has resolved. Status: Acute (2) Alcohol abuse: Problem details: Patient was informed that absence from alcohol will be necessary to prevent future recurrences of pancreatitis. Status: Acute Assessment and Plan: No problems with alcohol withdrawal (3) Cholelithiasis: Problem details: Outpatient evaluation felt this is not related to recent pancreatitis problems Status: Acute Assessment and Plan: No evidence of biliary obstruction (4) Smoking: Problem details: Likely contributes to pancreatitis risk Status: Acute (5) Hypertension: Problem details: Complicated by alcohol abuse Status: Acute (6) Pancreatic lesion: Problem details: [place] hydraulic auto jack mechanic recommends outpatient endoscopic ultrasound in 4-6 weeks, after pancreatitis has resolved Status: Acute (7) Abnormal laboratory test result: Status: Acute Assessment and Plan: Abnormal lab tests have largely normalized with time and treatment of pancreatitis Plan If patient is able to tolerate a normal diet today the plan will be to discharge to home. Will need outpatient follow-up for endoscopic ultrasound to evaluate abnormalities seen in the stomach, duodenum and pancreatic head Time Spent With Patient Total time spent: Total time spent today is 40 minutes, 30 minutes in coordination of care and discussing with patient and other providers ongoing management of pancreatitis and alcohol abuse. Subjective Date Seen: 03/06/22 Interval history: 51-year-old male seen in followup of pancreatitis. Patient reports feeling quite a bit better this morning. He ate some of a normal breakfast. Following that he has been feeling okay. No nausea or increase in his pain. No shortness of breath or fever. He has not had a bowel movement. Exam Narrative: Exam Narrative: He is alert and appears in no distress. He is ambulating in the hallway. Respirations are clear to auscultation. Cardiovascular: S1, S2, regular rate and rhythm. Abdomen bowel sounds are active. Abdomen is soft with mild diffuse tenderness. No peritonitis. Extremities no edema. Const: Vital Signs, click to edit/add: Vital Signs - 24 hr 03/05/22 11:00 03/05/22 12:00 03/05/22 15:00 Temperature 98.4 F 98.6 F 98.2 F Pulse Rate [Pulse Oximeter] 88 88 77 Respiratory Rate 18 18 18 Blood Pressure [Le ft Arm] 127/76 181/92 H 163/100 H Pulse Oximetry 100 100 100 Oxygen Delivery Me thod Room Air Room Air Room Air 03/05/22 15:00 03/05/22 15:00 03/05/22 19:00 alertTemperature 98.2 F 98.2 F Pulse Rate [Pulse Oximeter] 77 77 68 Respiratory Rate 18 18 18 Blood Pressure [Le ft Arm] 163/100 H 134/82 Pulse Oximetry 100 98 Oxygen Delivery Me thod Room Air Room Air 03/05/22 19:00 03/06/22 01:50 03/06/22 01:50 Temperature 98.2 F 98.4 F Pulse Rate [Pulse Oximeter] 68 73 73 Respiratory Rate 18 16 16 Blood Pressure [Le ft Arm] 134/82 157/94 H Pulse Oximetry 98 98 Oxygen Delivery Me thod Room Air Room Air 03/06/22 03:00 03/06/22 08:00 03/06/22 08:00 Temperature 98.0 F 98.1 F 98.1 F Pulse Rate [Pulse Oximeter] 68 73 73 Respiratory Rate 16 18 18 Blood Pressure [Le ft Arm] 170/97 H 121/97 H 121/97 H Pulse Oximetry 96 99 99 Oxygen Delivery Me thod Room Air Room Air Room Air Documenting provider has reviewed patient's vital signs: yes Labs Labs: Laboratory Results - last 24 hr 03/06/22 06:31 WBC 10.27 RBC 5.01 Hgb 16.2 Hct 47.1 MCV 94 MCH 32 MCHC 34 RDW Coeff of Waldemar 13.1 Plt Count 476 H Neut % (Auto) 62.1 Lymph % (Auto) 24.6 [place] % (Auto) 6.2 Eos % (Auto) 6.6 Baso % (Auto) 0.4 Neut # (Auto) 6.37 Lymph # (Auto) 2.53 [place] # (Auto) 0.60 Eos # (Auto) 0.68 H Baso # (Auto) 0.04 Abs Immat Gran (auto) 0.01
--- NOTE | 2022-03-06 10:35 | P.DS_ITS ---
DS: Providers Provider Date Seen: 03/06/22 Date of admission: 03/04/22 03:56 Primary care physician: Klarissa Manning CNP Admitting Clinician: Lan Mchugh MD Attending Physician on discharge: Lan Mchugh MD Date of Discharge: 03/06/22 DS: Diagnosis Discharge Diagnosis (1) Pancreatitis: Status: Acute Problem details: Underlying cause is likely alcohol abuse. However, MRI of the pancreas shows a poorly defined lesion at the head of the pancreas. I spoke to outdoor landscape architect at [facility] who recommended delayed outpatient endoscopic ultrasound in 4-6 weeks after the pancreatitis has resolved. (2) Alcohol abuse: Status: Acute Problem details: Patient was informed that absence from alcohol will be necessary to prevent future recurrences of pancreatitis. (3) Pancreatic lesion: Status: Acute Problem details: [facility] outdoor landscape architect recommends outpatient endoscopic ultrasound in 4-6 weeks, after pancreatitis has resolved DS: Summary Hospital Course Hospital Course: 51-year-old male admitted to the hospital severe epigastric pain. Time of admission this was felt to be due to pancreatitis. He was treated with IV pain medications and IV fluids. He continued to have pain for the 1st 2 days in the hospital but was getting much better by the 3rd day. He has now started to tolerate an oral diet. If this goes well he can be discharged today. He had CT of the abdomen and which showed a lesion in the head of the pancreas. This was further evaluated with MRI of the pancreas. This lesion was not fully characterized an endoscopic ultrasound is recommended followup. Gang Vibrator Operator at [facility] recommended endoscopic ultrasound in approximately 1 month, after the pancreatitis has resolved. There were also abnormalities of the gastric antrum and duodenum noted. He was treated empirically with a PPI, omeprazole. These should also be evaluated at the time of endoscopic ultrasound He had had previous episode of pancreatitis in November and reports that he has also had a couple episodes that he manage at home in December and January. He was informed that this is most likely due to alcohol, primarily, and also cigarette smoking, secondarily. He was again urged to stop drinking as he will continue to have problems with pancreatitis if he continues to drink alcohol. Status at Discharge Functional status at discharge: independent ambulation Overall status at discharge: patient is back to baseline Time Spent with Patient Time attestation: Total time spent providing and/or coordinating discharge services: 45 minutes Time spent: Greater than 30 minutes Exam Narrative: Exam Narrative: He is alert and appears in no distress. Speech is normal. Respirations clear to auscultation. Cardiovascular: S1, S2, regular rate and rhythm. Abdomen: Bowel sounds active. Abdomen is soft he has mild diffuse tenderness. No mass. No peritonitis. No edema in his extremities. Const: Vital Signs, click to edit/add: Vital Signs - 24 hr 03/05/22 11:00 03/05/22 12:00 03/05/22 15:00 Temperature 98.4 F 98.6 F 98.2 F Pulse Rate [Pulse Oximeter] 88 88 77 Respiratory Rate 18 18 18 Blood Pressure [Le ft Arm] 127/76 181/92 H 163/100 H Pulse Oximetry 100 100 100 Oxygen Delivery Me thod Room Air Room Air Room Air 03/05/22 15:00 03/05/22 15:00 03/05/22 19:00 Temperature 98.2 F 98.2 F Pulse Rate [Pulse Oximeter] 77 77 68 Respiratory Rate 18 18 18 Blood Pressure [Le ft Arm] 163/100 H 134/82 Pulse Oximetry 100 98 Oxygen Delivery Me thod Room Air Room Air 03/05/22 19:00 03/06/22 01:50 03/06/22 01:50 Temperature 98.2 F 98.4 F Pulse Rate [Pulse Oximeter] 68 73 73 Respiratory Rate 18 16 16 Blood Pressure [Le ft Arm] 134/82 157/94 H Pulse Oximetry 98 98 Oxygen Delivery Me thod Room Air Room Air 03/06/22 03:00 03/06/22 08:00 03/06/22 08:00 Temperature 98.0 F 98.1 F 98.1 F Pulse Rate [Pulse Oximeter] 68 73 73 Respiratory Rate 16 18 18 Blood Pressure [Le ft Arm] 170/97 H 121/97 H 121/97 H Pulse Oximetry 96 99 99 Oxygen Delivery Me thod Room Air Room Air Room Air Documenting provider has reviewed patient's vital signs: yes DS: Data Data Completed and Pending Labs on day of discharge: Labs from last 24 hours 03/06/22 06:31 WBC 10.27 RBC 5.01 Hgb 16.2 Hct 47.1 MCV 94 MCH 32 MCHC 34 RDW Coeff of Waldemar 13.1 Plt Count 476 H Neut % (Auto) 62.1 Lymph % (Auto) 24.6 [place] % (Auto) 6.2 Eos % (Auto) 6.6 Baso % (Auto) 0.4 Neut # (Auto) 6.37 Lymph # (Auto) 2.53 [place] # (Auto) 0.60 Eos # (Auto) 0.68 H Baso # (Auto) 0.04 Abs Immat Gran (auto) 0.01 Imaging MRI: Radiologist's impression: [place] [address] Diagnostic Imaging Report Patient: Eduardo Morillo MR#: [id number] : 1970 Acct:[id number] Loc: [id number] Service Date: 03/04/[address]: Lan Mchugh M.D. Ordering Physician: Marcell Palma M.D. Date of Service: 03/04/22 Procedure(s): MR abdomen wo/w con Accession Number(s): [id number] cc: Marcell Palma M.D.; Klarissa Manning SENIOR MECHANICAL DEVELOPMENT ENGINEER~ For Patients:? As a result of the Cures Act, medical imaging exams and procedure reports are released immediately into your electronic medical record.? You may view this report before your referring provider.? If you have questions, please contact your health care provider. Indication: Pancreatic lesion on CT. History of pancreatitis. Technique: MRI of the abdomen without and with 20 cc Dotarem IV contrast. Comparison: CT of the abdomen and pelvis 03/04/2022. Findings: Non cirrhotic configuration of the liver. No hepatic steatosis. There are two small benign hemangiomas in the lateral segment of the left hepatic lobe. No suspicious liver lesions. Hepatic and portal veins are patent. The gallbladder, spleen, and adrenal glands are negative. No biliary dilation. There is a 1.7 x 1.6 x 2.1 cm lesion in the pancreatic head which demonstrates heterogeneous T1 and T2 signal with no appreciable post-contrast enhancement (series 8 image 19, series 5 image 15, series 12 image 38, series 16 image 42). There is a focus of diffusion restriction along the left aspect of the lesion. Mild atrophy of the upstream pancreatic parenchyma. The upstream pancreatic duct is mildly prominent measuring 3 mm in diameter. No significant peripancreatic inflammation. Symmetric enhancement of the kidneys. No hydronephrosis. No bowel dilation. Moderate wall thickening of the gastric antrum. There is a subcentimeter T2 isointense rim enhancing lesion along the wall of the proximal transverse duodenum (series 8 image 27 and series 14 image 56). No free fluid or lymphadenopathy in the upper abdomen. Impression: 1. 1.7 x 1.6 x 2.1 cm heterogeneous lesion in the pancreatic head with no appreciable post-contrast enhancement. Upstream pancreatic parenchymal atrophy and mild prominence of the pancreatic duct. Differential considerations include a complex pseudocyst/side-branch IPMN or other cystic neoplasm. Recommend further evaluation with EUS. 2. Moderate wall thickening of the gastric antrum. 3. Subcentimeter lesion along the wall of the proximal transverse duodenum. This could be further evaluated with endoscopy. 4. Findings discussed with Molly Palma at 1:01 p.m. on 03/04/2022. Dictated by Karine Bryant MD @ 03/04/2022 1:09:[address] scan - abdomen: Radiologist's impression: patient: Eduardo Morillo MR#: [id number] : 1970 Acct:[id number] Loc: ED Service Date: 03/04/[address]: Ordering Physician: Lan Mchugh MD Date of Service: 03/04/22 Procedure(s): CT abdomen pelvis w con Accession Number(s): [id number] cc: Lan Mchugh MD~ For Patients:? As a result of the Century Cures Act, medical imaging exams and procedure reports are released immediately into your electronic medical record.? You may view this report before your referring provider.? If you have questions, please contact your health care provider. INDICATION: Epigastric abdominal pelvic pain TECHNIQUE: CT Abdomen and pelvis with i.v. contrast. Coronal and sagittal reformats were obtained. CONTRAST: 71 mL Isovue 370 COMPARISON: None FINDINGS: Lower chest: Unremarkable. Liver: Unremarkable. Spleen: Unremarkable. Pancreas: There is a hypodense ill-defined lesion within the pancreatic head measuring 1.5 cm. Gallbladder: Unremarkable. Kidney: Unremarkable. No kidney or ureteral stones or obstruction seen. Adrenal: Unremarkable. Bowel: Moderate wall thickening of the gastric antrum is present. The appendix is not visualized. Vascular: Unremarkable. Lymph: Unremarkable. Peritoneum: Unremarkable. No pneumoperitoneum is seen. No significant ascites is noted. Pelvis: Unremarkable. Soft tissue: Unremarkable. Bone: Unremarkable for age. IMPRESSIONS: 1. Moderate wall thickening of the gastric antrum is present. This may be due to gastritis or peptic ulcer disease and confirmation with barium GI series or endoscopy is recommended. 2. There is a hypodense ill-defined lesion within the pancreatic head measuring 1.5 cm. Assessment with outpatient pancreatic MRI is recommended to exclude a pancreatic mass. Dictated by Hayden Gambino MD @ 03/04/2022 1:16:36 AM Please note that all CT scans at this facility use dose modulation, iterative reconstruction, and/or weight-based dosing when appropriate to reduce radiation dose to as low as reasonably achievable. Dictated by: Hayden Gambino MD @ 03/04/2022 01:16:39 Discharge Plan Discharge Disposition: Home, Self-Care Date of Admission: 03/04/22 03:56 Attending Physician on Admission: Lan Mchugh Attending Provider on Discharge: Marcell Palma Primary Care Provider: Klarissa Manning Condition: Improved Anticipated Discharge Date/Time: 03/06/22 15:00 Discharge Medications: New omeprazole 20 mg capsule,delayed release(DR/EC) 20 mg PO DAILY Qty: 30 2RF Discharge Orders: Discharge Order (Routine); Ordered 03/06/22 Ordered By: Marcell Palma Activity Restrictions/Additional Instructions: Stop drinking alcohol. If you are unable to stop drinking alcohol there are community resources available to help you. You will continue to have problems with pancreatitis if you continue to drink alcohol. Activity Level: No Restrictions Discharge Diet: Regular Follow Up Appointments: Klarissa Manning, SENIOR MECHANICAL DEVELOPMENT ENGINEER [Primary Care Provider] - (See your primary care provider next week. He will need arrangements made for outpatient endoscopic ultrasound at [facility] in the next month.) Forms: [facility] Info Instructions Hospital Course: 51-year-old male admitted to the hospital severe epigastric pain. Time of admission this was felt to be due to pancreatitis. He was treated with IV pain medications and IV fluids. He continued to have pain for the 1st 2 days in the hospital but was getting much better by the 3rd day. He has now started to tolerate an oral diet. If this goes well he can be discharged today. He had CT of the abdomen and which showed a lesion in the head of the pancreas. This was further evaluated with MRI of the pancreas. This lesion was not fully characterized an endoscopic ultrasound is recommended followup. Gang Vibrator Operator at [facility] recommended endoscopic ultrasound in approximately 1 month, after the pancreatitis has resolved. There were also abnormalities of the gastric antrum and duodenum noted. He was treated empirically with a PPI, omeprazole. These should also be evaluated at the time of endoscopic ultrasound He had had previous episode of pancreatitis in November and reports that he has also had a couple episodes that he manage at home in December and January. He was informed that this is most likely due to alcohol, primarily, and also cigarette smoking, secondarily. He was again urged to stop drinking as he will continue to have problems with pancreatitis if he continues to drink alcohol.
[2022-03-06 12:25] VITALS: BP 148/68; PULSE 75; RESP 18; TEMP 36.7; O2SAT 98
== END 2022-03-06 14:24 | disposition home or self-care (01) ==
LOC: ED 03-04 02:49 → MEDSURG 03-04 04:05
PROVIDERS: Family Medicine; Internal Medicine; Admitting Provider Family Medicine; Emergency Provider Family Medicine; PCP Nurse Practitioner; Visit Provider Family Medicine
DX: K85.21 Alcohol induced acute pancreatitis with uninfected necrosis (principal); F10.10 Alcohol abuse, uncomplicated; K86.9 Disease of pancreas, unspecified; I10 Essential (primary) hypertension; K80.20 Calculus of gallbladder without cholecystitis without obstruction; F17.200 Nicotine dependence, unspecified, uncomplicated; F17.210 Nicotine dependence, cigarettes, uncomplicated
CPT/HCPCS: 36415; 74177; 74183; 80053; 82077; 83690; 83735; 85025; 86140; 87635; 93005; 96361; 96372; 96374; 96375; 96376; 99284; 99285; A9270; A9575; C9113; G0378; J1170; J1650; J2405; J7030; J7120; Q9967

== ENCOUNTER 2025-04-07 21:20 | Observation (INO) | payer BC, SELFPAY ==
[2025-04-07] VITALS (13 sets, daily range): BP systolic 168–174; BP diastolic 103–111; PULSE 77–92; RESP 28; TEMP 35.9; O2SAT 99–100; BMI 18.5
--- OUTSIDE RECORDS SUMMARY | 2025-04-07 21:22 | XMS_ITS | Clinical Summary ---
Author Organization [facility] Address [address] [place] [id number] Care Team Providers Care Ampoule Washing Machine Operator Name Role Phone Klarissa Manning NP Unavailable [phone] Klarissa Manning NP Primary Care Provider Allergies No known active allergies Medications varenicline (CHANTIX) 1 mg tablet Take 1 mg by mouth 2 times daily with meals. Active omeprazole (PRILOSEC) 20 mg Delayed-Release capsule Take 20 mg by mouth once daily before a meal. Active minocycline (MINOCIN) 100 mg tablet Take 100 mg by mouth once daily. Active atorvastatin (LIPITOR) 20 mg tablet Take 20 mg by mouth at bedtime. Active sildenafil citrate (VIAGRA) 50 mg tablet Take 50 mg by mouth once daily if needed for Erectile Dysfunction. Take 30min to 4 hours before sexual activity. Max 100mg/24hr Active aspirin (ECOTRIN) 81 mg enteric coated tablet Take 162 mg by mouth once daily with a meal. Active Doxycycline Hyclate 100 mg TbECIndications :Folliculitis Take 100 mg by mouth two times daily. 60 Tablet 5 05/05/20 25 Active doxycycline 100 mg tabletIndicatio ns:Facial rash Take 2 tablets (200mg) by mouth daily as needed. Take within 72 hours and ideally within 24 hours of unprotected sexual activity. Do no take more than 2 tablets in 24 hours. 60 Tablet 5 Active Encounters Date Type Department Care Team Description 04/05/2025 1:20 PM CDT Telemedicine [employer] [facility] Specialties [address] [place] [address] Kaveh Cole MD 04/05/2025 Telephone [facility] [address] [place] [address] Kaveh Cole MD Medication Management (Doxycycline Hyclate 100 mg TbEC/) 04/05/2025 Telephone [facility] [address] [place] [address] Kaveh Cole MD Medication Management (Doxycycline Hyclate 100 mg TbEC ) 04/04/2025 Travel from Last 3 Months Social History Tobacco Use Types Packs/Day Years Used Date Smoking Tobacco: Every Day Cigarettes Tobacco Cessation:Ready to Q uit: No; Counseling Given: No Sex and Gender Information Value Date Recorded Sex Assigned at Not on file 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 Gender Identity Not on file Sexual Orientation Not on file Obstetrics History Last Filed Vital Signs Vital Sign Reading Time Taken Comments Blood Pressure 130/78 10/12/2024 1:31 PM CDT Pulse 89 10/12/2024 1:31 PM CDT Temperature 36.4 C (97.5 F) 10/12/2024 1:31 PM CDT Respiratory Rate 16 10/12/2024 1:31 PM CDT Oxygen Saturation 100% 01/23/2017 10:45 AM CDT Inhaled Oxygen Concentration - - Weight 68 kg (150 lb) 10/12/2024 1:31 PM CDT Height - - Body Mass Index - - Plan of Treatment Health Maintenance Due Date Last Done Comments Tetanus booster 1981 Depression screening for age 12+ 1982 BMI (ht and wt on same day) for age 18+ 1988 Hepatitis C screening for age 18-79 1988 Hepatitis B series for 19+ ( 1 of 3 - 19+ 3-dose series) 1989 Pneumococcal series for age 50+ (1 of 2 - PCV) 1989 Colonoscopy through age 75 2015 Lipids for age 45-75 2015 Zoster (shingles) series for age 50+ (1 of 2) 2020 COVID-19 vaccine series (2024- season) 2025 12/06/2021, 10/26/2020, 10/05/2020 Influenza Vaccine (#1) 2025 RSV vaccine for adults or pr egnancy (1 - 1-dose 75+ series) 2045 HIV for age 15-65 Completed 10/12/2024 Procedures Procedure Name Priority Date/Time Associated Diagnosis Comments ANTI HIV 1/2 Routine 10/12/2024 2:20 PM CDT Exposure to syphilis from Last 3 Months or Most Recently Relevant to Health Maintenance Results * ANTI HIV 1/2 (10/12/2024 2:20 PM CDT) HIV AG/AB, 4TH GEN NON-REACT SHERRIE NON-REACT SHERRIE [employer] [place] Comment: HIV-1 antigen and HIV-1/HIV-2 antibodies were not detected. There is no laboratory evidence of HIV infection. PLEASE NOTE: This information has been disclosed to you from records whose confidentiality may be protected by state law. If your state requires such protection, then the state law prohibits you from making any further disclosure of the information without the specific written consent of the person to whom it pertains, or as otherwise permitted by law. A general authorization for the release of medical or other information is NOT sufficient for this purpose. For additional information please refer to http://education.[employer]/faq/DTN265 (This link is being provided for informational/ educational purposes only.) The performance of this assay has not been clinically validated in patients less than 2 years old. Blood BLOOD SPECIMEN / Unknown 10/12/2024 2:20 PM CDT 10/12/2024 2:23 PM CDT Narrative [facility] - 10/13/2024 12:36 PM CDT FASTING:NO FASTING: NO Kaveh Cole MD SEND OUTS Final Result [facility] [address] [place] [address], [facility] [address] [place] [address] from Last 3 Months or Most Recently Relevant to Health Maintenance Insurance [facility] Advance Directives * Full Code (Latest Code Status on File) Date Activated Date Inactivated Comments 01/23/2017 9:13 AM 01/23/2017 2:26 PM Care Teams Ampoule Washing Machine Operator Relationship Specialty Start Date End Date Klarissa Manning NP [address] [place] [id number] PCP - General Nurse Practitioner 10/12/24 Klarissa Manning NP Nurse Practitioner 03/07/14
--- NOTE | 2025-04-07 21:36 | ED_ITS ---
HPI - Abdominal Pain General Date Seen: 04/07/25 Chief Complaint: Abdominal Pain Stated Complaint: bad abd and back pain Time Seen by Provider: 04/07/25 21:36 Source: patient, RN notes reviewed and old records reviewed Mode of arrival: ambulatory Limitations: no limitations History of Present Illness HPI narrative: Eduardo is a very pleasant 54-year-old gentleman with history of pancreatitis, alcohol abuse, tobacco use and hypertension who comes to the emergency room with severe abdominal pain that began this evening. Eduardo notes that he has not had pain this severe for over a year. He does have a excellence consultant at [facility]. Notes he was recently seen in the felt his pancreas looked good but they did not have an explanation for his ongoing abdominal pain. For many months he has been losing weight and has not been able to eat full meals. States that he had the meals do not go through him and thus he has not been eating very much. Notes that he has had acute occurrences of feeling like something gets stuck in his chest but that has not happened tonight. Notes that this pain seems to be all abdomen. He notes it is coming from his low abdomen radiating up into the epigastrium. He notes that it radiates to the back. Did state that to the nursing staff that he took an oxycodone at home but that did not help. I do ask him about alcohol use. He states in the past he had pancreatitis and was going through a tough time. He notes that is much better although he continues to use alcohol but ?not as much?. Notes he had a bowel movement earlier today but it did not help his discomfort. No urinary pain. No fever cough cold or congestion. There is really no position which helps his discomfort. Related Data Previous Rx's ?Medication ?Instructions ?Recorded omeprazole 40 mg capsule,delayed 40 mg PO BID #60 caps 04/08/25 release ondansetron 4 mg disintegrating 4 mg PO Q8H PRN nausea and 04/08/25 tablet vomiting #10 tabs oxycodone 5 mg tablet 5 - 10 mg (1 - 2 x 5 mg) PO Q4H 04/08/25 PRN Pain #20 tabs sucralfate 100 mg/mL oral 10 ml PO QID #414 mL 5 suspension Allergies Allergy/AdvReac Type Severity Reaction Status Date / Time No Known Drug Allergies Allergy Verified 04/07/25 22:43 Review of Systems Status of ROS Reports: 10 or more systems reviewed and unremarkable except as noted in History and below Const Denies: fever or chills ENMT Denies: throat pain, neck pain or nasal congestion Cardio Denies: chest pain, swelling of feet/ankles, lightheadedness or shortness of b reath with exertion Resp Denies: shortness of breath or cough GI Reports: abdominal pain, nausea and vomiting; Denies: diarrhea, constipation or blood in stool Denies: painful urination or urinary frequency Musculo Reports: back pain; Denies: neck pain or extremity pain Neuro Denies: headache or numbness in extremities PFSH [facility] Medical History (Updated 04/08/25 @ 12:35 by Anne Ross PA-C) Weight loss ?R63.4 - Abnormal weight loss (ICD-10) Acute pancreatitis ?K85.90 - Acute pancreatitis without necrosis or infection, unspecified (ICD- 10) Stroke ?I63.9 - Cerebral infarction, unspecified (ICD-10) Obstructive sleep apnea ?G47.33 - Obstructive sleep apnea (adult) (pediatric) (ICD-10) Cholelithiasis ?K80.20 - Calculus of gallbladder without cholecystitis without obstruction (ICD-10) Smoking ?F17.200 - Nicotine dependence, unspecified, uncomplicated (ICD-10) Alcohol abuse ?F10.10 - Alcohol abuse, uncomplicated (ICD-10) Hypercholesteremia ?E78.00 - Pure hypercholesterolemia, unspecified (ICD-10) Surgical History History of carotid endarterectomy ?Z98.890 - Other specified postprocedural states (ICD-10) Social History What is your current living situation?: I presently have a place to live Problems where you live: no known problems In the past 12 months, utilities in danger of being shut off: no In past 12 months, lack of transportation kept you from medical appts, meetings, work, or getting things needed for daily living: no In the past 12 mos, have been you worried that your food would run out before you had money to buy more?: never true In the past 12 mos, the food you bought just didn't last and you didn't have money to buy more?: never true Smoking Status: Current every day smoker What tobacco products do you use: cigarettes Smoking packs per day: 1.5 Smoking cigarettes per day: 30.0 Years smoked: 35 Smoking pack-years: 52.50 Do you use any of these nicotine containing products: Vaping Products Nicotine containing products detail: has tried vaping does not care for it Second hand tobacco smoke exposure: Yes How often do you have a drink containing alcohol: 2-3 times a week Alcohol type: hard liquor How many standard drinks containing alcohol do you have on a typical day: 3 or 4 How often do you have six or more drinks on one occasion: Monthly AUDIT-C Alcohol total score: 6 Non-prescribed substance use: denies use How often does anyone, including family, friends and others, physically hurt you : never How often does anyone, including family, friends and others, insult or talk down to you: never How often does anyone, including family, friends and others, threaten you with harm: never How often does anyone, including family, friends and others, scream or curse at you: never service: No Exam Narrative: Exam Narrative: Eduardo is alert and oriented but in significant distress. He is riding in discomfort. He is is able to answer questions any as a GCS of 15. Strong odor of tobacco. External ears eyes nose clear. Cachectic in appearance. Heart with a regular rate and rhythm and lungs are clear. Abdomen is firm with diffuse tenderness. CVA without tenderness. Again writhing in pain. Lower extremities without edema. Pedal pulses are intact . Const: Vital Signs, click to edit/add: Vital Signs - 24 hr 04/07/25 21:30 04/07/25 22:03 04/07/25 22:26 Temperature 96.6 F L Pulse Rate 90 84 Pulse Rate [Pulse Oximeter] 92 Respiratory Rate 28 H Blood Pressure Blood Pressure [Ri ght Upper Arm] 174/104 H Pulse Oximetry 99 100 100 Oxygen Delivery Me thod Room Air 04/07/25 22:30 04/07/25 22:32 04/07/25 22:40 Temperature Pulse Rate 77 82 83 Pulse Rate [Pulse Oximeter] Respiratory Rate Blood Pressure 171/103 H 168/111 H Blood Pressure [Ri ght Upper Arm] Pulse Oximetry 100 100 100 Oxygen Delivery Me thod 04/07/25 22:45 04/07/25 23:00 04/07/25 23:02 Temperature Pulse Rate 83 82 83 Pulse Rate [Pulse Oximeter] Respiratory Rate Blood Pressure 173/109 H Blood Pressure [Ri ght Upper Arm] Pulse Oximetry 100 100 100 Oxygen Delivery Me thod 04/07/25 23:15 04/07/25 23:30 04/07/25 23:32 Temperature Pulse Rate 84 85 85 Pulse Rate [Pulse Oximeter] Respiratory Rate Blood Pressure 170/103 H Blood Pressure [Ri ght Upper Arm] Pulse Oximetry 100 100 100 Oxygen Delivery Me thod 04/07/25 23:45 04/08/25 00:00 04/08/25 00:02 Temperature Pulse Rate 82 84 79 Pulse Rate [Pulse Oximeter] Respiratory Rate Blood Pressure 168/105 H Blood Pressure [Ri ght Upper Arm] Pulse Oximetry 100 100 100 Oxygen Delivery Me thod 04/08/25 00:02 04/08/25 00:02 04/08/25 00:15 Temperature Pulse Rate 79 79 81 Pulse Rate [Pulse Oximeter] Respiratory Rate Blood Pressure 168/105 H 168/105 H Blood Pressure [Ri ght Upper Arm] Pulse Oximetry 100 100 100 Oxygen Delivery Me thod Documenting provider has reviewed patient's vital signs: yes Course Course ED Course: Differential diagnosis includes but is not limited to pancreatitis, bowel obstruction, aortic dissection, cholelithiasis/cholecystitis, colitis. Will place IV and give morphine 4 mg Zofran 4 mg and initiate 1 L of normal saline for pain control and hydration. Will need to check a CBC, comprehensive,, CRP. Will also check urinalysis and EtOH. Given ongoing alcohol use this most likely represents pancreatitis. Will obtain CT of the chest abdomen and pelvis with the increased radiation to the back to rule out any evidence of aortic pathology. Reevaluation(s) Reevaluation #1: Patient noted to have ongoing pain and thus was given Dilaudid 0.5 mg. We followed this with Ativan 0.5 mg and patient was improved. He still had discomfort noted but was not writhing as much. White count elevated. LFTs within normal limits. Lipase is currently pending. Alcohol level was 0. Vital Signs Vital signs: Initial Vital Signs Temperature 96.6 F L 04/07/25 21:30 Temperature Source Temporal Artery Scan 04/07/25 21:30 Pulse Rate 92 04/07/25 21:30 Respiratory Rate 28 H 04/07/25 21:30 Blood Pressure 174/104 H 04/07/25 21:30 Blood Pressure Mean 127 H 04/07/25 21:30 Pulse Oximetry 99 04/07/25 21:30 Oxygen Delivery Method Room Air 04/07/25 21:30 Vital Signs Temperature 96.6 F L 04/07/25 21:30 Pulse Rate 92 04/07/25 21:30 Respiratory Rate 28 H 04/07/25 21:30 Blood Pressure 174/104 H 04/07/25 21:30 Pulse Oximetry 99 04/07/25 21:30 Oxygen Delivery Method Room Air 04/07/25 21:30 Temperature 97.9 F 04/08/25 01:08 Pulse Rate 66 04/08/25 11:00 Respiratory Rate 16 04/08/25 11:00 Blood Pressure 172/97 H 04/08/25 11:00 Pulse Oximetry 98 04/08/25 11:00 Oxygen Delivery Method Room Air 04/08/25 01:08 Medications Administered Medications: Generic Name Dose Route Start Last Admin Trade Name Freq PRN Reason Stop Dose Admin Hydromorphone HCl 1 mg 04/08/25 01:51 04/08/25 08:59 Hydromorphone 0.5 Mg/0.5 Ml Inj IVP 1 mg On Hold: 04/08/25 10:55 Q3H PRN Administration Pain Lactated Ringer's 1,000 mls @ 75 mls/hr 04/08/25 02:00 04/08/25 02:05 Lactated Ringers 1000 Ml IV 75 mls/hr .[id number] LORENE Administration Pantoprazole Sodium 40 mg 04/08/25 09:00 04/08/25 08:58 Pantoprazole Sodium 40 Mg Inj IVP 40 mg BID LORENE Administration Sodium Chloride 5 ml 04/08/25 09:00 04/08/25 08:59 Sodium Chloride 0.9 % (Flush) 10 Ml Syringe IVF 5 ml BID LORENE Administration Sucralfate 1 gm 04/08/25 10:40 04/08/25 12:38 Sucralfate 1 Gm Tablet PO 1 gm ACHS LORENE Administration Discontinued Medications Generic Name Dose Route Start Last Admin Trade Name Freq PRN Reason Stop Dose Admin Hydromorphone HCl 0.5 mg 04/07/25 21:54 04/07/25 21:59 Hydromorphone 0.5 Mg/0.5 Ml Inj IVP 04/07/25 21:55 0.5 mg ONCE ONE Administration Sodium Chloride 1,000 mls @ 1,000 mls/hr 04/07/25 21:40 04/08/25 02:12 0.9 % Sodium Chloride 1000 Ml IV 04/07/25 22:39 Infused .Q1H LORENE Infusion Lorazepam 0.5 mg 04/07/25 22:09 04/07/25 22:36 Lorazepam 2 Mg/Ml Inj IVP 04/07/25 22:10 0.5 mg ONCE ONE Administration Morphine Sulfate 4 mg 04/07/25 21:39 04/07/25 21:50 Morphine 4 Mg/Ml Inj IVP 04/07/25 21:40 4 mg ONCE ONE Administration Ondansetron HCl 4 mg 04/07/25 21:39 04/08/25 02:12 Ondansetron 2 Mg/Ml Inj IVP 04/07/25 21:40 Not Given ONCE ONE Pantoprazole Sodium 80 mg 04/07/25 23:02 04/07/25 23:17 Pantoprazole Sodium 40 Mg Inj IVP 04/07/25 23:03 80 mg ONCE ONE Administration Pantoprazole Sodium 40 mg 04/08/25 02:00 04/08/25 03:51 Pantoprazole Sodium 40 Mg Inj IVP Not Given Q24H LORENE Pantoprazole Sodium 40 mg 04/08/25 02:24 04/08/25 03:52 Pantoprazole Sodium 40 Mg Inj IVP 04/08/25 02:25 Not Given BID ONE MDM - Abdominal Pain MDM Narrative Medical decision making narrative: 1. Gastric ulcer-identified on CT. patient noted to have decreased ability for p.o. intake over a number of weeks along with significant weight loss. Patient given Protonix 80mg IV. Risk factors to include alcohol use and tobacco use. I think we should be concerned that the ulcer actually represents the possibility of a mass given the weight loss, chronic abdominal pain, and inability to eat normal amounts of food. He will likely need endoscopy. At this time hemoglobin is within normal limits and there is no report of blood in stool. 2. 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 Patient does have continued tobacco and alcohol use. Lipase is 225. No evidence of active pancreatitis this evening. 3. Alcohol use-patient notes history of alcohol abuse in the past but has decreased that amount. Unable to ascertain exactly how much he uses daily. Denies a history of alcohol withdrawal symptoms or seizures. Patient did receive 0.5 mg Ativan in the ED. 4. Cholelithiasis-without cholecystitis. 5. Abdominal pain-pain was quite significant with exam being challenging. Patient does have some improvement of his pain but ongoing nausea and discomfort. He did try oxycodone at home. He has failed outpatient management for his discomfort. 6. Tobacco use-cessation discussed. Did offer nicotine patch but patient declines. Emphysema noted on CT. 7. Disposition-patient in fairly significant distress upon arrival, gastric ulcer/gastric antrum abnormality noted on abdominal CT. Definitely increased worry for underlying mass given recent weight loss and inability to take p.o.. Patient is admitted to inpatient status likely will be here 2-3 midnights. Discussed with accepting physician Dr Rogesr. Medical Records Attestation: I reviewed the patient's medical records. Lab Data Attestation: I reviewed the patient's lab results. Labs: Lab Results 04/07/25 04/07/25 04/07/25 Range/Units 21:39 21:57 23:45 WBC 13.43 H (4.50-11.00) K/uL RBC 5.31 (4.30-5.90) m/uL Hgb 16.9 (13.5-17.5) gm/dL Hct 48.6 (37.0-53.0) % MCV 92 (80-100) fL MCH 32 (26-34) pg MCHC 35 (32-36) gm/dL RDW Coeff of Waldemar 13.4 (11.5-15.5) % Plt Count 508 H (140-440) K/uL Neut % (Auto) 67.8 (42.0-72.0) % Lymph % (Auto) 21.8 (20-44) % Bleckley % (Auto) 6.4 (0.0-11.0) % Eos % (Auto) 2.9 (0.0-7.0) % Baso % (Auto) 0.3 (0.0-3.0) % Neut # (Auto) 9.10 H (1.7-7.0) K/uL Lymph # (Auto) 2.90 (0.90-2.90) K/uL Bleckley # (Auto) 0.90 (0.00-0.90) K/UL Eos # (Auto) 0.40 (0.00-0.50) K/uL Baso # (Auto) 0.00 (0.00-0.30) K/uL Abs Immat Gran (auto) 0.10 (0.00-0.30) K/uL Imm/Tot Granulo (auto) 0.8 % Sodium 136 (135-149) mmol/L Potassium 3.9 (3.6-5.1) mmol/L Chloride 99 (96-114) mmol/L Carbon Dioxide 24 (20-32) mmol/L Anion Gap 13 (7-15) mEq/L BUN 10 (7-30) mg/dL Creatinine 0.8 (0.5-1.5) mg/dL Estimated Creat Clear 90.07 Estimated GFR 105 ml/min Glucose 129 H (60-115) mg/dL Calcium 9.9 (8.4-10.6) mg/dL Total Bilirubin 0.7 (0.1-1.5) mg/dL AST 33 (12-35) U/L ALT 17 (4-50) U/L Alkaline Phosphatase 77 (40-150) U/L Troponin I < 0.01 (0.01-0.04) ng/mL C-Reactive Protein 0.8 (0.5-1.0) mg/dL Total Protein 8.4 H (6.0-8.3) g/dL Albumin 4.7 (3.3-5.0) g/dL Lipase 225 (23-300) U/L Ethyl Alcohol < 0.01 (0.01-0.03) % Lab Acknowledgement New Spec Needed A Test Added Imaging Data CT Chest/Ab/Pelvis: Attestation: I have reviewed the pertinent imaging results. My impression: By my read no evidence of pancreatitis Radiologist's impression: Cardiovascular structures: Heart size is normal. Thoracic aorta and main pulmonary artery are normal in caliber. No filling defects in the central pulmonary vasculature. Mediastinum and dalia: No mass or adenopathy. Lungs and pleura: No suspicious pulmonary nodule or consolidation. Mild biapical pleural-parenchymal scarring. Mild apical predominant centrilobular and paraseptal emphysema. No suspicious nodules, infiltrates, or effusions. Chest wall and axilla: No mass or adenopathy. Bones: No suspicious bone lesions. No acute fractures. Mild multilevel degenerative changes of the spine. ABDOMEN AND PELVIS: Liver: Non cirrhotic morphology. Stable hemangioma in the lateral aspect of the left hepatic lobe (01/31). Gallbladder and bile ducts: Gallstones. No wall thickening or pericholecystic fluid. No intra or extrahepatic biliary ductal dilatation. Pancreas: Previously seen heterogeneous lesion in the pancreatic head has decreased measuring approximately 0.7 x 0.5 cm, previously approximately 1.9 x 1.9 cm (remeasured, ). Diffuse prominence of the pancreatic duct measuring up to 0.4 cm, similar to prior. Spleen: Unremarkable. Adrenal glands: Unremarkable. Kidneys: Unremarkable. GI tract: Compared to CT abdomen and pelvis dated March 02, 2022, previously seen mucosal hyperenhancement and wall thickening of the gastric antrum has decreased; however, there is a rim enhancing exophytic projection within the gastric antrum/1st portion of the duodenum measuring 2.5 x 1.2 x 2.9 cm. No significant fat stranding. No free air. No pneumatosis or portal venous gas. Normal appendix (7/100). Small and large bowel is normal in caliber without obstruction. Colonic stool burden is within normal limits. Vascular structures: Moderate to marked calcification of the abdominal aorta and iliac vasculature without aneurysm. Proximal mesenteric vessels are patent. Mild stenosis at the origin of the SMA. Patent hepatic, portal, splenic and bilateral renal veins. Lymph nodes: Unremarkable. Peritoneum/Retroperitoneum/Abdominal Wall: Unremarkable. No free air or significant free fluid. Pelvic Organs: Unremarkable. Bones and superficial soft tissues: No acute fractures. No aggressive appearing lytic or blastic osseous lesions. [id number] multilevel degenerative changes of the spine, notably at L4-5. Stable sclerotic foci in the left iliac bone, most compatible with benign bone islands. IMPRESSION: 1. Compared to CT abdomen and pelvis dated March 02, 2022, previously seen mucosal hyperenhancement and wall thickening of the gastric antrum has decreased; however, there is a rim enhancing exophytic projection within the gastric antrum/1st portion of the duodenum measuring 2.5 x 1.2 x 2.9 cm. No fat stranding or perforation. Findings are suspicious for a gastric ulcer. Recommend GI consultation. 2. Compared to CT dated March 04, 2022, heterogeneous lesion in the pancreatic head has decreased in size. Findings are favored to reflect a side branch IPMN or nearly resolved pseudocyst given history of prior pancreatitis. Stable mild prominence of the pancreatic duct measuring up to 0.4 cm. 3. Cholelithiasis without acute cholecystitis. No biliary ductal dilatation. 4. No acute pathology in the chest. Mild emphysema. Mild to moderate three-vessel coronary calcification. Discharge Plan Discharge Clinical Impression: Pancreatic lesion, Alcohol abuse, Smoking Abdominal pain Qualifiers: Abdominal location: generalized Qualified Code(s): R10.84 - Generalized abdominal pain Gastric ulcer Qualifiers: Gastric ulcer chronicity: acute Gastric ulcer complication status: unspecified whether hemorrhage or perforation present Qualified Code(s): K25.3 - Acute gastric ulcer without hemorrhage or perforation Patient Disposition: Admitted As Inpatient Condition: Improved Activity Level: Activity as Tolerated and Light activity Diet Detail: CLEARS, BLAND DIET. AVOID ALCOHOL, CAFFEINATED DRINKS.
--- NOTE | 2025-04-07 21:42 | CRLHL7_ITS ---
For Patients: As a result of the Century Cures Act, medical imaging exams and procedure reports are released immediately into your electronic medical record. You may view this report before your referring provider. If you have questions, please contact your health care provider. INDICATION: Epigastric pain with radiation to the back TECHNIQUE: CT chest, abdomen and pelvis acquired 100 cc Omnipaque 350 IV contrast. COMPARISON: CT abdomen and pelvis on March 04, 2022. MRI abdomen on March 04, 2022. FINDINGS: CHEST: Cardiovascular structures: Heart size is normal. Thoracic aorta and main pulmonary artery are normal in caliber. No filling defects in the central pulmonary vasculature. Mediastinum and dalia: No mass or adenopathy. Lungs and pleura: No suspicious pulmonary nodule or consolidation. Mild biapical pleural-parenchymal scarring. Mild apical predominant centrilobular and paraseptal emphysema. No suspicious nodules, infiltrates, or effusions. Chest wall and axilla: No mass or adenopathy. Bones: No suspicious bone lesions. No acute fractures. Mild multilevel degenerative changes of the spine. ABDOMEN AND PELVIS: Liver: Non cirrhotic morphology. Stable hemangioma in the lateral aspect of the left hepatic lobe (01/31). Gallbladder and bile ducts: Gallstones. No wall thickening or pericholecystic fluid. No intra or extrahepatic biliary ductal dilatation. Pancreas: Previously seen heterogeneous lesion in the pancreatic head has decreased measuring approximately 0.7 x 0.5 cm, previously approximately 1.9 x 1.9 cm (remeasured, ). Diffuse prominence of the pancreatic duct measuring up to 0.4 cm, similar to prior. Spleen: Unremarkable. Adrenal glands: Unremarkable. Kidneys: Unremarkable. GI tract: Compared to CT abdomen and pelvis dated March 02, 2022, previously seen mucosal hyperenhancement and wall thickening of the gastric antrum has decreased; however, there is a rim enhancing exophytic projection within the gastric antrum/1st portion of the duodenum measuring 2.5 x 1.2 x 2.9 cm. No significant fat stranding. No free air. No pneumatosis or portal venous gas. Normal appendix (). Small and large bowel is normal in caliber without obstruction. Colonic stool burden is within normal limits. Vascular structures: Moderate to marked calcification of the abdominal aorta and iliac vasculature without aneurysm. Proximal mesenteric vessels are patent. Mild stenosis at the origin of the SMA. Patent hepatic, portal, splenic and bilateral renal veins. Lymph nodes: Unremarkable. Peritoneum/Retroperitoneum/Abdominal Wall: Unremarkable. No free air or significant free fluid. Pelvic Organs: Unremarkable. Bones and superficial soft tissues: No acute fractures. No aggressive appearing lytic or blastic osseous lesions. [id number] multilevel degenerative changes of the spine, notably at L4-5. Stable sclerotic foci in the left iliac bone, most compatible with benign bone islands. IMPRESSION: 1. Compared to CT abdomen and pelvis dated March 02, 2022, previously seen mucosal hyperenhancement and wall thickening of the gastric antrum has decreased; however, there is a rim enhancing exophytic projection within the gastric antrum/1st portion of the duodenum measuring 2.5 x 1.2 x 2.9 cm. No fat stranding or perforation. Findings are suspicious for a gastric ulcer. Recommend GI consultation. 2. Compared to CT dated March 04, 2022, heterogeneous lesion in the pancreatic head has decreased in size. Findings are favored to reflect a side branch IPMN or nearly resolved pseudocyst given history of prior pancreatitis. Stable mild prominence of the pancreatic duct measuring up to 0.4 cm. 3. Cholelithiasis without acute cholecystitis. No biliary ductal dilatation. 4. No acute pathology in the chest. Mild emphysema. Mild to moderate three-vessel coronary calcification. Please note that all CT scans at this facility use dose modulation, iterative reconstruction, and/or weight-based dosing when appropriate to reduce radiation dose to as low as reasonably achievable. Dictated by Semaj Balderas MD @ 04/07/2025 10:47:29 PM (Electronically Signed)
[2025-04-07] MEDS: MORPHINE 4 MG/ML INJ IVP (21:50)
[2025-04-07 22:02] LABS: Chloride* 99 mmol/L (96-114); Hematocrit* 48.6 % (37.0-53.0); Hemoglobin* 16.9 gm/dL (13.5-17.5); Immature Granulocytes Pct Auto 0.8 %; Mean Corpuscular HGB Conc 35 gm/dL (32-36); Mean Corpuscular Hemoglobin 32 pg (26-34); Mean Corpuscular Volume 92 fL (80-100); RDW Coefficient of Variation % 13.4 % (11.5-15.5); Red Blood Count* 5.31 m/uL (4.30-5.90); White Blood Count* 13.43 K/uL (4.50-11.00)
[2025-04-07 22:03] LABS: Albumin* 4.7 g/dL (3.3-5.0); Potassium* 3.9 mmol/L (3.6-5.1); Sodium* 136 mmol/L (135-149)
[2025-04-07 22:05] LABS: Blood Urea Nitrogen* 10 mg/dL (7-30); Creatinine* 0.8 mg/dL (0.5-1.5); Est. Creatinine Clearance* 90.07; Estimated Glomerular Filt Rate 105 ml/min
[2025-04-07 22:05] LABS: Lab Add On Test New Spec Needed
[2025-04-07 22:06] LABS: Alanine Aminotransferase* 17 U/L (4-50); Alkaline Phosphatase* 77 U/L (40-150); Anion Gap 13 mEq/L (7-15); Aspartate Amino Transferase* 33 U/L (12-35); Bilirubin Total* 0.7 mg/dL (0.1-1.5); Calcium* 9.9 mg/dL (8.4-10.6); Carbon Dioxide* 24 mmol/L (20-32); Glucose* 129 mg/dL (60-115); Total Protein* 8.4 g/dL (6.0-8.3)
[2025-04-07 22:12] LABS: Immature Granulocytes Abs Auto 0.10 K/uL (0.00-0.30); Lymphocytes Absolute Auto 2.90 K/uL (0.90-2.90); Slide Review Reflex No
[2025-04-07 23:00] LABS: Ethanol* < 0.01 % (0.01-0.03)
[2025-04-07] MEDS: PANTOPRAZOLE SODIUM 40 MG INJ 80 MG IVP (23:17)
[2025-04-08] VITALS: PULSE 84; O2SAT 100
[2025-04-08 00:02] VITALS: BP 168/105; PULSE 79; O2SAT 100
[2025-04-08 00:15] VITALS: PULSE 81; O2SAT 100
--- NOTE | 2025-04-08 00:19 | W.PM.TELEH&P ---
Telehealth- H&P: HPI History of Present Illness Time Seen by Provider: 01:57 Date Seen: 04/08/25 Chief complaint: bad abd and back pain Narrative: Eduardo Morillo is seen as an Interactive Telehealth visit. Eduardo Morillo is a 54 year old male h/o pancreatic cyst vs mass that is followed by [facility] presents with exacerbation/flare of generalized abdominal pain that radiates to his back. Patient has been experiencing abdominal pain for unknown duration. Several hours before coming to the ED his generalized abdominal pain flared. He felt that his food was not moving. He had an episode of emesis (contents were consumed liquids). Of note, patient reports he stopped eating large meals one week ago. He feels that his constant abdominal pain may be associated with his pancreas/pancreatitis?? Despite feeling hungry, patient would eat small and frequent meals vs liquids in efforts to control his pain. He also tried an oxycodone tablet which was unsuccessful. no fever no chills did not feel well vomited this morning felt that food was not moving +stool this am no melena no hematochezia no shoulder pain pain in his rib has had neck pain in the past Patient is a poor historian. Per ED, patient has noticable weight loss. He is being followed by a regional business development manager at [facility]. he was told his pancreatic lesion is improving. Social history tobacco 1-1.5 packs per day ETOH: 2-3 times per week I believe he stated 3-4 drinks each time but unclear no recreational drug use Review of Systems Status of ROS: Reports: 10 or more systems reviewed and unremarkable except as noted in History and below [facility] Medical History Acute pancreatitis ?K85.90 - Acute pancreatitis without necrosis or infection, unspecified (ICD-10) Stroke ?I63.9 - Cerebral infarction, unspecified (ICD-10) Obstructive sleep apnea ?G47.33 - Obstructive sleep apnea (adult) (pediatric) (ICD-10) Cholelithiasis ?K80.20 - Calculus of gallbladder without cholecystitis without obstruction (ICD-10) Smoking ?F17.200 - Nicotine dependence, unspecified, uncomplicated (ICD-10) Alcohol abuse ?F10.10 - Alcohol abuse, uncomplicated (ICD-10) Hypercholesteremia ?E78.00 - Pure hypercholesterolemia, unspecified (ICD-10) Surgical History History of carotid endarterectomy ?Z98.890 - Other specified postprocedural states (ICD-10) Social History What is your current living situation?: I presently have a place to live Problems where you live: no known problems In the past 12 months, utilities in danger of being shut off: no In past 12 months, lack of transportation kept you from medical appts, meetings, work, or getting things needed for daily living: no In the past 12 mos, have been you worried that your food would run out before you had money to buy more?: never true In the past 12 mos, the food you bought just didn't last and you didn't have money to buy more?: never true Smoking Status: Current every day smoker What tobacco products do you use: cigarettes Smoking packs per day: 1.5 Smoking cigarettes per day: 30.0 Years smoked: 35 Smoking pack-years: 52.50 Do you use any of these nicotine containing products: Vaping Products Nicotine containing products detail: has tried vaping does not care for it Second hand tobacco smoke exposure: Yes How often do you have a drink containing alcohol: 2-3 times a week Alcohol type: hard liquor How many standard drinks containing alcohol do you have on a typical day: 3 or 4 How often do you have six or more drinks on one occasion: Monthly AUDIT-C Alcohol total score: 6 Non-prescribed substance use: denies use How often does anyone, including family, friends and others, physically hurt you: never How often does anyone, including family, friends and others, insult or talk down to you: never How often does anyone, including family, friends and others, threaten you with harm: never How often does anyone, including family, friends and others, scream or curse at you: never service: No Meds Home Medications and Allergies Home Medications ?Medication ?Instructions ?Recorded ?Confirmed ?Type omeprazole 20 mg capsule,delayed 20 mg PO DAILY #30 caps 03/06/22 04/07/25 Rx release oxycodone 5 mg tablet PO 04/07/25 History Allergies Allergy/AdvReac Type Severity Reaction Status Date / Time No Known Drug Allergies Allergy Verified 04/07/25 22:43 Exam Narrative Exam Narrative: Physical Exam GENERAL: ?vital signs reviewed, well developed and nourished, in no distress HEENT: pupils are equal round and reactive to light, extraocular movements are grossly within normal limits and oral mucosa is moist. NECK: Supple without lymphadenopathy or thyromegaly according to nursing staff examination observation HEART: Regular rate and rhythm without any rubs, murmurs, or gallops. LUNGS: Clear to auscultation bilaterally with good air movement throughout ABDOMEN: Observation from nurse assisted exam, abdomen appears soft, + generalized tenderness, and nondistended with Positive bowel sounds noted. EXTREMITIES: Strength and sensation is observed to be grossly within normal limits in the upper and lower extremities.? No focal strength deficit is observed. SKIN:? Observed warm and dry with color normal Const Vital Signs, click to edit/add: Vital Signs - 24 hr 04/07/25 21:30 Temperature 96.6 F L Pulse Rate [Pulse Oximeter] 92 Respiratory Rate 28 H Blood Pressure [Right Upper Arm] 174/104 H Pulse Oximetry 99 Oxygen Delivery Method Room Air Hospitalist - H&P: Result Labs Labs: Short CBC 04/07/25 Range/Units 21:39 WBC 13.43 H (4.50-11.00) K/uL Hgb 16.9 (13.5-17.5) gm/dL Hct 48.6 (37.0-53.0) % Plt Count 508 H (140-440) K/uL BMP 04/07/25 21:39 Sodium 136 Potassium 3.9 Chloride 99 Carbon Dioxide 24 BUN 10 Creatinine 0.8 Glucose 129 H Calcium 9.9 Liver Function 04/07/25 Range/Units 21:39 Total Bilirubin 0.7 (0.1-1.5) mg/dL AST 33 (12-35) U/L ALT 17 (4-50) U/L Alkaline Phosphatase 77 (40-150) U/L Albumin 4.7 (3.3-5.0) g/dL Imaging CT scan - abdomen: Radiologist's impression: CHEST: Cardiovascular structures: Heart size is normal. Thoracic aorta and main pulmonary artery are normal in caliber. No filling defects in the central pulmonary vasculature. Mediastinum and dalia: No mass or adenopathy. Lungs and pleura: No suspicious pulmonary nodule or consolidation. Mild biapical pleural-parenchymal scarring. Mild apical predominant centrilobular and paraseptal emphysema. No suspicious nodules, infiltrates, or effusions. Chest wall and axilla: No mass or adenopathy. Bones: No suspicious bone lesions. No acute fractures. Mild multilevel degenerative changes of the spine. ABDOMEN AND PELVIS: Liver: Non cirrhotic morphology. Stable hemangioma in the lateral aspect of the left hepatic lobe (01/31). Gallbladder and bile ducts: Gallstones. No wall thickening or pericholecystic fluid. No intra or extrahepatic biliary ductal dilatation. Pancreas: Previously seen heterogeneous lesion in the pancreatic head has decreased measuring approximately 0.7 x 0.5 cm, previously approximately 1.9 x 1.9 cm (remeasured, ). Diffuse prominence of the pancreatic duct measuring up to 0.4 cm, similar to prior. Spleen: Unremarkable. Adrenal glands: Unremarkable. Kidneys: Unremarkable. GI tract: Compared to CT abdomen and pelvis dated March 02, 2022, previously seen mucosal hyperenhancement and wall thickening of the gastric antrum has decreased; however, there is a rim enhancing exophytic projection within the gastric antrum/1st portion of the duodenum measuring 2.5 x 1.2 x 2.9 cm. No significant fat stranding. No free air. No pneumatosis or portal venous gas. Normal appendix (7/100). Small and large bowel is normal in caliber without obstruction. Colonic stool burden is within normal limits. Vascular structures: Moderate to marked calcification of the abdominal aorta and iliac vasculature without aneurysm. Proximal mesenteric vessels are patent. Mild stenosis at the origin of the SMA. Patent hepatic, portal, splenic and bilateral renal veins. Lymph nodes: Unremarkable. Peritoneum/Retroperitoneum/Abdominal Wall: Unremarkable. No free air or significant free fluid. Pelvic Organs: Unremarkable. Bones and superficial soft tissues: No acute fractures. No aggressive appearing lytic or blastic osseous lesions. [id number] multilevel degenerative changes of the spine, notably at L4-5. Stable sclerotic foci in the left iliac bone, most compatible with benign bone islands. IMPRESSION: 1. Compared to CT abdomen and pelvis dated March 02, 2022, previously seen mucosal hyperenhancement and wall thickening of the gastric antrum has decreased; however, there is a rim enhancing exophytic projection within the gastric antrum/1st portion of the duodenum measuring 2.5 x 1.2 x 2.9 cm. No fat stranding or perforation. Findings are suspicious for a gastric ulcer. Recommend GI consultation. 2. Compared to CT dated March 04, 2022, heterogeneous lesion in the pancreatic head has decreased in size. Findings are favored to reflect a side branch IPMN or nearly resolved pseudocyst given history of prior pancreatitis. Stable mild prominence of the pancreatic duct measuring up to 0.4 cm. 3. Cholelithiasis without acute cholecystitis. No biliary ductal dilatation. 4. No acute pathology in the chest. Mild emphysema. Mild to moderate three-vessel coronary calcification. Assessment and Plan Assessment and plan (1) Abdominal pain: Status: Acute (2) Pancreatic lesion: Problem comment: [facility] regional business development manager recommends outpatient endoscopic ultrasound in 4-6 weeks, after pancreatitis has resolved Status: Acute (3) Smoking: Problem comment: Likely contributes to pancreatitis risk Status: Acute (4) Alcohol abuse: Problem comment: Patient was informed that absence from alcohol will be necessary to prevent future recurrences of pancreatitis. Status: Acute (5) Hypertension: Problem comment: Complicated by alcohol abuse Status: Acute Plan 54y/o M h/o pancreatic lesion, sleep apnea, alcohol abuse presents with abdominal pain. Imaging shows sign of ulcer. fortunately, there is no sign of blood loss. Endoscopy to be performed tomorrow. OF note, last endoscpy was last fall per patient I am concerned about possible malignancy. If present, patient may need transfer --continue prn dilaudid for pain control --IVF --keep NPO in preparation for possible endoscopy in the morning --consult surgery in AM --administer protonix BID h/o ETOH: --would place on CIWA but will be difficult to score due to pain --will control pain first, then if needed will score for CIWA Tobacco abuse: patient refuses nicotine patch --order nicotine prn Pancreatic lesion: per ED staff and imaging, the lesion has gotten smaller. Per discussion with patient, [facility]'s GI plan regarding cystic vs mass in the pancreas is unclear plan Full code per discussion Total Time Spent Total Time Spent: 45min Telehealth: Statement Statement Telehealth Visit: Today's History and Physical is provided via interactive telehealth by Clare Gracia MD.? Patient is located at [facility].? Provider is located at [facility].? Nursing staff assisted with the patient's exam. The visit being done today meets criteria for a telehealth visit and the patient or patient?s parent/guardian is aware the visit is a telehealth visit. Camera Start Time: 01:57 Camera End Time: 02:19
[2025-04-08 01:08] VITALS: BP 181/103; PULSE 72; RESP 17; RESP 18; TEMP 36.6; O2SAT 99
[2025-04-08] MEDS: LACTATED RINGERS 1000 ML 1,000 ML 75 ML IV (02:05)
[2025-04-08 03:27] LABS: Appearance Urine Clear (Clear)
--- NOTE | 2025-04-08 06:52 | PC.NURSE ---
Pt is alert and oriented. C/o of 9-10/10 abdominal pain, tolerates pain with Hydromorphone. Pt has been NPO since 299. pt is independent in room
[2025-04-08 07:00] VITALS: BP 158/97; PULSE 68; RESP 16; O2SAT 99
[2025-04-08 08:10] LABS: Hematocrit* 44.3 % (37.0-53.0); Hemoglobin* 15.3 gm/dL (13.5-17.5); Immature Granulocytes Abs Auto 0.01 K/uL (0.00-0.30); Immature Granulocytes Pct Auto 0.1 %; Lymphocytes Absolute Auto 2.24 K/uL (0.90-2.90); Mean Corpuscular HGB Conc 35 gm/dL (32-36); Mean Corpuscular Hemoglobin 32 pg (26-34); Mean Corpuscular Volume 93 fL (80-100); RDW Coefficient of Variation % 13.4 % (11.5-15.5); Red Blood Count* 4.79 m/uL (4.30-5.90); White Blood Count* 9.99 K/uL (4.50-11.00)
[2025-04-08 08:14] LABS: Slide Review Reflex No
[2025-04-08 08:24] LABS: Albumin* 3.8 g/dL (3.3-5.0); Chloride* 103 mmol/L (96-114); Potassium* 3.9 mmol/L (3.6-5.1); Sodium* 136 mmol/L (135-149)
[2025-04-08 08:26] LABS: Blood Urea Nitrogen* 11 mg/dL (7-30); Creatinine* 0.7 mg/dL (0.5-1.5); Est. Creatinine Clearance* 104.33; Estimated Glomerular Filt Rate 110 ml/min
[2025-04-08 08:27] LABS: Alanine Aminotransferase* 13 U/L (4-50); Alkaline Phosphatase* 54 U/L (40-150); Anion Gap 7 mEq/L (7-15); Aspartate Amino Transferase* 23 U/L (12-35); Bilirubin Total* 0.5 mg/dL (0.1-1.5); Calcium* 9.2 mg/dL (8.4-10.6); Carbon Dioxide* 26 mmol/L (20-32); Glucose* 101 mg/dL (60-115); Total Protein* 6.7 g/dL (6.0-8.3)
[2025-04-08] MEDS: PANTOPRAZOLE SODIUM 40 MG INJ IVP (08:58)
[2025-04-08] MEDS: SODIUM CHLORIDE 0.9 % (FLUSH) 10 ML SYRINGE 5 ML IVF (08:59)
[2025-04-08 11:00] VITALS: BP 172/97; PULSE 66; RESP 16; O2SAT 98
--- NOTE | 2025-04-08 11:29 | PM.DS1 ---
DS: Providers Provider Date Seen: 04/08/25 Date of admission: 04/08/25 01:06 Primary care physician: Klarissa Arnold [facility] [place] Admitting Clinician: Marcell Palma MD Consults: 04/08/25 00:42 Consult to Physician [CONS] Urgent Comment: Consulting Provider: Meng Eaton Has provider been notified: No Attending Physician on discharge: Anne Ross [facility] Date of Discharge: 04/08/25 DS: Diagnosis Discharge Diagnosis (1) Abdominal pain: Status: Acute Problem details: Acute on chronic worsening over the last several weeks, severe prior to admission. improving with NPO, IVF, narcotic pain medications. CT shows acute gastric ulceration. patient denies previous history of ulcerations. also has a known pancreatic mass /lesion. (2) Gastric ulcer: Status: Acute Problem details: CT 04/07/2025 shows a rim enhancing exophytic projection within the gastric antrum/1st portion of the duodenum measuring 2.5 x 1.2 x 2.9 cm. patient denies previous history of ulcers. This ulcer could be the source of his abdominal pain as well as the pancreatic lesion. Discussed with GI, Dr. Cleveland. Ulceration could also be coming from a potential mass protruding. GI recommends further imaging, EGD, at a tertiary hospital after discussing risks including bleeding, malignancy, seeding. As patient has declined transfer, recommends high-dose PPI 40 mg b.i.d., Carafate. Will also obtain stool for H pylori. No NSAIDs, alcohol abstinence. Smoking cessation. (3) Pancreatic lesion: Status: Acute Problem details: Per patient, [facility] has evaluated in the past. Patient reports having an EGD and a colonoscopy fall 2023. EMR is very limited without these reports or any sort of documentation in the past year. CT 04/07/[address] dated March 04, 2022, heterogeneous lesion in the pancreatic head has decreased in size. Patient confirms that this lesion has been fluctuating in size. Will need further workup and evaluation of this, recommending more urgently in order to rule out any sort of malignancy. Patient declines transfer to tertiary hospital at this time and would like to follow-up in the outpatient setting. (4) Weight loss: Status: Acute Problem details: According to EMR, weight has been 61-68 kg over the last several years. Patient reports fluctuation in weight 10-20 lbs over this time frame as well. While he has not weighed himself recently, feels as though his weight is down about 10 lb again recently. Does report decreased appetite, oral intake secondary to abdominal pain. Denies significant vomiting or diarrhea. Perhaps minimizes alcohol use. (5) Smoking: Status: Acute Problem details: Likely contributes to pancreatitis risk. Continues to smoke 1-1.5 packs daily. (6) Alcohol abuse: Status: Acute Problem details: Reports drinking 3-4 whiskey drinks 2-4 times weekly. history of pancreatitis in the past. No evidence of that currently. Encouraged abstinence. (7) Hypertension: Status: Acute Problem details: Complicated by alcohol abuse. Has stopped previous prescribed antihypertensives and aspirin - does not want to take too many medications. Recommend outpatient follow-up with PCP for further medication management. DS: Summary Hospital Course Hospital Course: Course of care and details as noted above. Admitted to hospital with severe abdominal pain, worsening over the last several weeks, with decreased appetite and oral intake. On CT, noted to have a gastric ulcer as well as a chronic pancreatic lesion. It was recommended patient have an EGD at a tertiary hospital given risks and history after evaluated by local GI. General surgery deferring to GI recommendations. Patient has declined transfer. Reports he has a very important Wedding he must attend tomorrow. Would like to trial clears, oral pain medications and follow-up in the outpatient setting. Have recommended PPI 40 mg b.i.d., Carafate, avoidance of NSAIDs, alcohol, smoking. Clears and bland diet encouraged. Have requested a stool sample for H pylori testing. Patient understands to return to ED if new or worsening symptoms, including increasing pain, nausea, vomiting, bloody stools. Will need outpatient follow-up with his PCP for chronic comorbidities as well. Time spent discussing smoking cessation with patient: 3 to 10 minutes Status at Discharge Functional status at discharge: independent ambulation Overall status at discharge: patient is progressing back to baseline Time Spent with Patient Time attestation: Total time spent providing and/or coordinating discharge services: Time spent: Greater than 30 minutes Exam Narrative: Exam Narrative: PHYSICAL EXAM General: Pleasant, conversant, NAD Cardiovascular: RRR Pulmonary: No dyspnea Abdomen: soft, nondistended, mild tenderness upper quadrant, no guarding Neurological: Alert, answering questions appropriately Skin: Warm, dry. Const: Vital Signs, click to edit/add: Vital Signs - 24 hr 04/07/25 21:30 04/07/25 22:03 04/07/25 22:26 Temperature 96.6 F L Pulse Rate 90 84 Pulse Rate [Pulse Oximeter] 92 Respiratory Rate 28 H Blood Pressure Blood Pressure [Le ft Arm] Blood Pressure [Ri ght Arm] Blood Pressure [Ri ght Upper Arm] 174/104 H Pulse Oximetry 99 100 [facility] 04/07/25 22:30 04/07/25 22:32 04/07/25 22:40 Temperature Pulse Rate 77 82 83 Pulse Rate [Pulse Oximeter] Respiratory Rate Blood Pressure 171/103 H 168/111 H Blood Pressure [Le ft Arm] Blood Pressure [Ri ght Arm] Blood Pressure [Ri ght Upper Arm] Pulse Oximetry 100 100 100 [facility] 04/07/25 22:45 04/07/25 23:00 04/07/25 23:02 Temperature Pulse Rate 83 82 83 Pulse Rate [Pulse Oximeter] Respiratory Rate Blood Pressure 173/109 H Blood Pressure [Le ft Arm] Blood Pressure [Ri ght Arm] Blood Pressure [Ri ght Upper Arm] Pulse Oximetry 100 100 100 [facility] 04/07/25 23:15 04/07/25 23:30 04/07/25 23:32 Temperature Pulse Rate 84 85 85 Pulse Rate [Pulse Oximeter] Respiratory Rate Blood Pressure 170/103 H Blood Pressure [Le ft Arm] Blood Pressure [Ri ght Arm] Blood Pressure [Ri ght Upper Arm] Pulse Oximetry 100 100 100 [facility] 04/07/25 23:45 04/08/25 00:00 04/08/25 00:02 Temperature Pulse Rate 82 84 79 Pulse Rate [Pulse Oximeter] Respiratory Rate Blood Pressure 168/105 H Blood Pressure [Le ft Arm] Blood Pressure [Ri ght Arm] Blood Pressure [Ri ght Upper Arm] Pulse Oximetry 100 100 100 [facility] 04/08/25 00:02 04/08/25 00:02 04/08/25 00:15 Temperature Pulse Rate 79 79 81 Pulse Rate [Pulse Oximeter] Respiratory Rate Blood Pressure 168/105 H 168/105 H Blood Pressure [Le ft Arm] Blood Pressure [Ri ght Arm] Blood Pressure [Ri ght Upper Arm] Pulse Oximetry 100 100 100 Oxygen Delivery Me thod 04/08/25 01:08 04/08/25 01:08 04/08/25 07:00 Temperature 97.9 F Pulse Rate Pulse Rate [Pulse Oximeter] 72 68 Respiratory Rate 18 17 16 Blood Pressure Blood Pressure [Le ft Arm] 158/97 H Blood Pressure [Ri ght Arm] 181/103 H Blood Pressure [Ri ght Upper Arm] Pulse Oximetry 99 99 99 Oxygen Delivery Me thod Room Air Room Air DS: Data Data Completed and Pending Labs on day of discharge: Labs from last 24 hours 04/08/25 04/08/25 04/07/25 08:04 03:15 23:45 WBC 9.99 RBC 4.79 Hgb 15.3 Hct 44.3 MCV 93 MCH 32 MCHC 35 RDW Coeff of Waldemar 13.4 Plt Count 392 Neut % (Auto) 66.0 Lymph % (Auto) 22.4 [place] % (Auto) 6.9 Eos % (Auto) 4.3 Baso % (Auto) 0.3 Neut # (Auto) 6.59 Lymph # (Auto) 2.24 [place] # (Auto) 0.70 Eos # (Auto) 0.43 Baso # (Auto) 0.03 Abs Immat Gran (auto) 0.01 Imm/Tot Granulo (auto) 0.1 Sodium 136 Potassium 3.9 Chloride 103 Carbon Dioxide 26 Anion Gap 7 BUN 11 Creatinine 0.7 Estimated Creat Clear 104.33 Estimated GFR 110 Glucose 101 Calcium 9.2 Total Bilirubin 0.5 AST 23 ALT 13 Alkaline Phosphatase 54 Troponin I C-Reactive Protein 0.9 Total Protein 6.7 Albumin 3.8 Lipase 133 Urine Color Yellow Urine Appearance Clear Urine pH 6.5 Ur Specific [place] 1.010 Urine Protein Negative Urine Glucose (UA) Negative Urine Ketones 3+ A Urine Blood Negative Urine Nitrite Negative Urine Bilirubin Negative Urine Urobilinogen 0.2 Ur Leukocyte Esterase Negative Urine RBC 0-2 Urine WBC 0-2 Ur Squamous Epith Cells Few Urine Bacteria Few A Ethyl Alcohol Lab Acknowledgement Test Added 04/07/25 04/07/25 21:57 21:39 WBC 13.43 H RBC 5.31 Hgb 16.9 Hct 48.6 MCV 92 MCH 32 MCHC 35 RDW Coeff of Waldemar 13.4 Plt Count 508 H Neut % (Auto) 67.8 Lymph % (Auto) 21.8 [place] % (Auto) 6.4 Eos % (Auto) 2.9 Baso % (Auto) 0.3 Neut # (Auto) 9.10 H Lymph # (Auto) 2.90 [place] # (Auto) 0.90 Eos # (Auto) 0.40 Baso # (Auto) 0.00 Abs Immat Gran (auto) 0.10 Imm/Tot Granulo (auto) 0.8 Sodium 136 Potassium 3.9 Chloride 99 Carbon Dioxide 24 Anion Gap 13 BUN 10 Creatinine 0.8 Estimated Creat Clear 90.07 Estimated GFR 105 Glucose 129 H Calcium 9.9 Total Bilirubin 0.7 AST 33 ALT 17 Alkaline Phosphatase 77 Troponin I < 0.01 C-Reactive Protein 0.8 Total Protein 8.4 H Albumin 4.7 Lipase 225 Urine Color Urine Appearance Urine pH Ur Specific [place] Urine Protein Urine Glucose (UA) Urine Ketones Urine Blood Urine Nitrite Urine Bilirubin Urine Urobilinogen Ur Leukocyte Esterase Urine RBC Urine WBC Ur Squamous Epith Cells Urine Bacteria Ethyl Alcohol < 0.01 Lab Acknowledgement New Spec Needed A Preliminary micro results at discharge 04/08/25 03:15 Urine Culture - Preliminary Urine,Clean Catch Culture in Progress Imaging CT Chest/Ab/Pelvis: Attestation: I have reviewed the pertinent imaging results. Radiologist's impression: CHEST: Cardiovascular structures: Heart size is normal. Thoracic aorta and main pulmonary artery are normal in caliber. No filling defects in the central pulmonary vasculature. Mediastinum and dalia: No mass or adenopathy. Lungs and pleura: No suspicious pulmonary nodule or consolidation. Mild biapical pleural-parenchymal scarring. Mild apical predominant centrilobular and paraseptal emphysema. No suspicious nodules, infiltrates, or effusions. Chest wall and axilla: No mass or adenopathy. Bones: No suspicious bone lesions. No acute fractures. Mild multilevel degenerative changes of the spine. ABDOMEN AND PELVIS: Liver: Non cirrhotic morphology. Stable hemangioma in the lateral aspect of the left hepatic lobe (01/31). Gallbladder and bile ducts: Gallstones. No wall thickening or pericholecystic fluid. No intra or extrahepatic biliary ductal dilatation. Pancreas: Previously seen heterogeneous lesion in the pancreatic head has decreased measuring approximately 0.7 x 0.5 cm, previously approximately 1.9 x 1.9 cm (remeasured, ). Diffuse prominence of the pancreatic duct measuring up to 0.4 cm, similar to prior. Spleen: Unremarkable. Adrenal glands: Unremarkable. Kidneys: Unremarkable. GI tract: Compared to CT abdomen and pelvis dated March 02, 2022, previously seen mucosal hyperenhancement and wall thickening of the gastric antrum has decreased; however, there is a rim enhancing exophytic projection within the gastric antrum/1st portion of the duodenum measuring 2.5 x 1.2 x 2.9 cm. No significant fat stranding. No free air. No pneumatosis or portal venous gas. Normal appendix (7/100). Small and large bowel is normal in caliber without obstruction. Colonic stool burden is within normal limits. Vascular structures: Moderate to marked calcification of the abdominal aorta and iliac vasculature without aneurysm. Proximal mesenteric vessels are patent. Mild stenosis at the origin of the SMA. Patent hepatic, portal, splenic and bilateral renal veins. Lymph nodes: Unremarkable. Peritoneum/Retroperitoneum/Abdominal Wall: Unremarkable. No free air or significant free fluid. Pelvic Organs: Unremarkable. Bones and superficial soft tissues: No acute fractures. No aggressive appearing lytic or blastic osseous lesions. [id number] multilevel degenerative changes of the spine, notably at L4-5. Stable sclerotic foci in the left iliac bone, most compatible with benign bone islands. IMPRESSION: 1. Compared to CT abdomen and pelvis dated March 02, 2022, previously seen mucosal hyperenhancement and wall thickening of the gastric antrum has decreased; however, there is a rim enhancing exophytic projection within the gastric antrum/1st portion of the duodenum measuring 2.5 x 1.2 x 2.9 cm. No fat stranding or perforation. Findings are suspicious for a gastric ulcer. Recommend GI consultation. 2. Compared to CT dated March 04, 2022, heterogeneous lesion in the pancreatic head has decreased in size. Findings are favored to reflect a side branch IPMN or nearly resolved pseudocyst given history of prior pancreatitis. Stable mild prominence of the pancreatic duct measuring up to 0.4 cm. 3. Cholelithiasis without acute cholecystitis. No biliary ductal dilatation. 4. No acute pathology in the chest. Mild emphysema. Mild to moderate three-vessel coronary calcification. Discharge Plan Discharge Disposition: Home, Self-Care Date of Admission: 04/08/25 01:00 Attending Provider on Discharge: Anne Ross Consulting Providers: Cesar Cleveland Primary Care Provider: Provider,Not a Local Condition: Improved Anticipated Discharge Date/Time: 04/08/25 14:00 Discharge Medications: New oxycodone 5 mg Tablet 5 - 10 mg PO Q4H PRN (Reason: Pain) Qty: 20 0RF omeprazole 40 mg capsule,delayed release(DR/EC) 40 mg PO BID Qty: 60 2RF sucralfate 100 mg/mL suspension 10 ml PO QID Qty: 414 0RF Rx Instructions: swish in mouth and swallow 4 times daily ondansetron 4 mg tablet,disintegrating 4 mg PO Q8H PRN (Reason: nausea and vomiting) Qty: 10 0RF Discontinued omeprazole 20 mg capsule,delayed release(DR/EC) 20 mg PO DAILY Qty: 30 2RF oxycodone 5 mg tablet 5 mg PO Q6H PRN doxycycline hyclate 100 mg tablet 200 mg PO DAILY PRN Discharge Orders: Discharge Order (Routine); Ordered 04/08/25 Ordered By: Sydney Burris Patient Education: Sucralfate (By mouth), Omeprazole (By mouth), Oxycodone, Rapid Release (By mouth), Ondansetron (By mouth), Diet for Stomach Ulcers and Gastritis (GEN) Additional Instructions: CONTINUE WITH CLEARS AND A BLAND DIET TOLERATED. AVOID ALCOHOL AND CAFFEINATED DRINKS. DO NOT USE NSAIDS (IBUPROFEN, ADVIL, NAPROSYN, NAPROXEN, ALEVE, ASPIRIN). CONTINUE TO TAKE CARAFATE AND OMEPRAZOLE PRESCRIBED ON DISCHARGE. IF YOU DID NOT LEAVE A STOOL SAMPLE BEFORE LEAVING THE HOSPITAL, COLLECT ONE WHILE AT HOME AND RETURN IT TO THE LAB. THIS TESTS FOR H PYLORI, A BACTERIA THAT CAN GROW IN THE ULCER AND IS TREATABLE. RETURN TO ED IF NEW OR WORSENING SYMPTOMS, VOMITING, INCREASED PAIN, BLOODY STOOLS. YOU WILL NEED FURTHER IMAGING SUCH AN EGD FOR EVALUATION OF THE ULCER AND MASS NOTED ON YOUR CT. Activity Level: Activity as Tolerated and Light activity Diet Detail: CLEARS, BLAND DIET. AVOID ALCOHOL, CAFFEINATED DRINKS. Follow Up Appointments: Noelle Mann, CLEMENT, COLLAR SETTER, DNP [Referring, Family Practice] - 04/12/25 8:45 am Referral Note: [facility] for hospital follow-up. Primary was not available. Provider,Not a Local [Primary Care Provider, Family Practice] Forms: Patient Belongings, MyHealth Info Instructions
[2025-04-08] MEDS: SUCRALFATE 1 GM TABLET PO (12:38)
--- NOTE | 2025-04-08 16:43 | PC.NURSE ---
The patient discharged this afternoon, the patient was educated regarding diet recommendations with an ulcer. The patient was also instructed on s/s to follow up with immediately. Medications were gone through as well. The patient was given a stool hat and collection supplies too. All belongings were sent home with the patient. Ashlee JARRETT BSN
== END 2025-04-08 16:00 | disposition home or self-care (01) ==
LOC: ED 04-08 00:40 → MEDSURG 04-08 01:01
PROVIDERS: Physician Assistant; Admitting Provider Family Medicine; Emergency Provider Family Medicine; Visit Provider Family Medicine
DX: R10.84 Generalized abdominal pain (principal); K25.3 Acute gastric ulcer without hemorrhage or perforation; K86.9 Disease of pancreas, unspecified; I10 Essential (primary) hypertension; F10.90 Alcohol use, unspecified, uncomplicated; F17.200 Nicotine dependence, unspecified, uncomplicated
CPT/HCPCS: 36415; 71260; 74177; 80053; 81001; 82077; 83690; 84484; 85025; 86140; 87086; 87338; 96374; 96375; 96376; 99285; A9270; G0378; J1171; J2060; J2270; J2470; J7030; J7120; Q9967

== ENCOUNTER 2025-04-12 13:26 | Outpatient (CLI) | payer BC, SELFPAY ==
[2025-04-12 14:28] LABS: H pylori Ag Stool* Negative (Negative)
== END 2025-04-12 13:27 | disposition home or self-care (01) ==
LOC: LAB 13:27
PROVIDERS: Physician Assistant; PCP Nurse Practitioner; Visit Provider Family Medicine
DX: K85.20 Alcohol induced acute pancreatitis without necrosis or infection (principal)
CPT/HCPCS: 87338

== ENCOUNTER 2025-05-01 19:58 | Inpatient (IN) | payer BC, SELFPAY ==
--- OUTSIDE RECORDS SUMMARY | 2025-05-01 20:00 | XMS_ITS | Clinical Summary ---
Author Organization [facility] Address [address] [place] [id number] Care Team Providers Care Assistant Manager Retail Name Role Phone Klarissa Manning NP Unavailable [phone] Klarissa Manning NP Primary Care Provider Allergies [...] Team Description 04/05/2025 1:20 PM CDT Telemedicine [facility] [address] [place] [address] Kaveh Cole MD 04/05/2025 Telephone [facility] [address] [place] [address] Kaveh Cole MD Medication Management (Doxycycline Hyclate 100 mg TbEC/) 04/05/2025 Telephone [facility] [address] [place] [address] Kaveh Cole MD Medication Management (Doxycycline Hyclate 100 mg TbEC ) 04/04/2025 Travel from Last 3 Months Social History Tobacco Use Types Packs/Day Years Used Date Smoking Tobacco: Every Day Cigarettes Tobacco Cessation:Ready to Q uit: No; Counseling Given: No Sex and Gender Information Value Date Recorded Sex Assigned at Not on file Legal Sex Male 5:27 AM [employer]NA[employer] Gender Identity Not on file Sexual Orientation [...] AG/AB, 4TH GEN NON-REACT SHERRIE NON-REACT SHERRIE [employer] [place] Comment: HIV-1 antigen and HIV-1/HIV-2 antibodies were [...] purpose. For additional information please refer to http://[email or web address].Verivue/faq/ZSV723 (This link is being provided for informational/ educational purposes only.) The performance of this assay has not been clinically validated in patients less than 2 years old. Blood BLOOD SPECIMEN / Unknown 10/12/2024 2:20 PM CDT 10/12/2024 2:23 PM CDT Narrative [facility] - 10/13/2024 12:36 PM CDT FASTING:NO FASTING: NO Kaveh Cole MD SEND OUTS Final Result [id number] [facility] [address] [place] [address], [facility] [address] [place] [address] from Last 3 Months or Most Recently Relevant to Health Maintenance Insurance [facility] Advance Directives * Full Code (Latest Code Status on File) Date Activated Date Inactivated Comments 01/23/2017 9:13 AM 01/23/2017 2:26 PM Care Teams Assistant Manager Retail Relationship Specialty Start Date End Date Klarissa Manning NP [address] [place] [id number] PCP - General Nurse Practitioner 10/12/24 Klarissa Manning NP Nurse Practitioner 03/07/14
[2025-05-01 20:25] VITALS: BP 146/106; PULSE 99; RESP 18; TEMP 36.5; O2SAT 98; BMI 17.7
[2025-05-01 22:33] VITALS: O2SAT 98
[2025-05-01] MEDS: PANTOPRAZOLE SODIUM 40 MG INJ IVP (22:46)
[2025-05-01] MEDS: MORPHINE 4 MG/ML INJ IVP (22:46)
[2025-05-01 22:53] LABS: Lactate* 1.5 mmol/L (0.5-1.9)
[2025-05-01 22:58] LABS: Appearance Urine Clear (Clear)
[2025-05-01 23:05] LABS: Hematocrit* 49.5 % (37.0-53.0); Hemoglobin* 17.0 gm/dL (13.5-17.5); Immature Granulocytes Abs Auto 0.10 K/uL (0.00-0.30); Immature Granulocytes Pct Auto 1.0 %; Mean Corpuscular HGB Conc 34 gm/dL (32-36); Mean Corpuscular Hemoglobin 32 pg (26-34); Mean Corpuscular Volume 92 fL (80-100); RDW Coefficient of Variation % 12.7 % (11.5-15.5); Red Blood Count* 5.38 m/uL (4.30-5.90); White Blood Count* 9.73 K/uL (4.50-11.00)
--- NOTE | 2025-05-01 23:08 | ED_ITS ---
HPI - Abdominal Pain General Date Seen: 05/01/25 <Paul Childers MD - Last Filed: 05/02/25 00:33> Chief Complaint: Abdominal Pain <Paul Childers MD - Last Filed: 05/02/25 00:33> Stated Complaint: abd. and back pain <Paul Childers MD - Last Filed: 05/02/25 00:33> Time Seen by Provider: 05/01/25 22:19 <Paul Childers MD - Last Filed: 05/02/25 00:33> Source: patient, family, RN notes reviewed and old records reviewed <Paul Childers MD - Last Filed: 05/02/25 00:33> Mode of arrival: ambulatory <Paul Childers MD - Last Filed: 05/02/25 00:33> Limitations: no limitations <Paul Childers MD - Last Filed: 05/02/25 00:33> History of Present Illness HPI narrative: Patient is a 54-year-old gentleman who presents here with abdominal pain over his whole abdomen. He has a history of being admitted here at the end March, for what sounds like a gastric ulcer. He then left the hospital, as he tells me he had his daughter getting . This was despite being told he should be transferred downtown for endoscopy. He was sent home with proton pump inhibitors, sulfa fat, and pain medications. Approximately a week later he ended up at the [facility] where they did a CT scan and sent him home. He has followed up with his primary care physician in [place], but failed to tell his primary care physician about what went on or he needed endoscopy. He continues to drink alcohol with the last drank 3 days ago. Also smoker. Presents here with his mother. No history of vomiting, but he does feel nauseous, describes mostly epigastric pain that is all over. No history of dark stools or stools with blood. He currently is taking an [id number] antiacid medication along with his omeprazole. He is not taking sulcrafate Review of his chart is done, he does have a history of chronic abdominal pain I can see from multiple issues history of alcohol abuse, history of pancreatitis. History of a gastric ulcer, He tells me [facility] told him that he did not have a gastric ulcer on the CT so he wondered if that is healed. He does say over the last 3-4 days he notices the pain is worse, and that also goes to his back. He does feel constipated and has not had a bowel movement the last 3 days. Tells me that he took some ibuprofen before he came into the pain was so bad. I explained to him that his doctor told not to take those cut the medications, he looked at me quizzickly. Patient is drinking electrolyte replacement solution in the room. <Paul Childers MD - Last Filed: 05/02/25 00:33> MD elicited complaint: abdominal pain <Paul Childers MD - Last Filed: 05/02/25 00:33> Associated symptoms: denies other symptoms <Paul Childers MD - Last Filed: 05/02/25 00:33> Related Data Home Medications: Previous Rx's ?Medication ?Instructions ?Recorded omeprazole 40 mg capsule,delayed 40 mg PO BID #60 caps 04/08/25 release ondansetron 4 mg disintegrating 4 mg PO Q8H PRN nausea and 04/08/25 tablet vomiting #10 tabs oxycodone 5 mg tablet 5 - 10 mg (1 - 2 x 5 mg) PO Q4H 04/08/25 PRN Pain #20 tabs sucralfate 100 mg/mL oral 10 ml PO QID #414 mL 5 suspension <Paul Childers MD - Last Filed: 05/02/25 00:33> Allergies/Adverse Reactions: Allergies Allergy/AdvReac Type Severity Reaction Status Date / Time No Known Drug Allergies Allergy Verified 05/02/25 00:31 <Paul Childers MD - Last Filed: 05/02/25 00:33> Review of Systems Status of ROS Reports: 10 or more systems reviewed and unremarkable except as noted in History and below <Paul Childers MD - Last Filed: 05/02/25 00:33> [facility] Medical History: Medical History Weight loss ?R63.4 - Abnormal weight loss (ICD-10) Acute pancreatitis ?K85.90 - Acute pancreatitis without necrosis or infection, unspecified (ICD- 10) Stroke ?I63.9 - Cerebral infarction, unspecified (ICD-10) Obstructive sleep apnea ?G47.33 - Obstructive sleep apnea (adult) (pediatric) (ICD-10) Cholelithiasis ?K80.20 - Calculus of gallbladder without cholecystitis without obstruction (ICD-10) Smoking ?F17.200 - Nicotine dependence, unspecified, uncomplicated (ICD-10) Alcohol abuse ?F10.10 - Alcohol abuse, uncomplicated (ICD-10) Hypercholesteremia ?E78.00 - Pure hypercholesterolemia, unspecified (ICD-10) <Paul Childers MD - Last Filed: 05/02/25 00:33> Surgical History: Surgical History History of carotid endarterectomy ?Z98.890 - Other specified postprocedural states (ICD-10) <Paul Childers MD - Last Filed: 05/02/25 00:33> Social History: Social History What is your current living situation?: I presently have a place to live Problems where you live: no known problems In the past 12 months, utilities in danger of being shut off: no In past 12 months, lack of transportation kept you from medical appts, meetings, work, or getting things needed for daily living: no In the past 12 mos, have been you worried that your food would run out before you had money to buy more?: never true In the past 12 mos, the food you bought just didn't last and you didn't have money to buy more?: never true Smoking Status: Current every day smoker What tobacco products do you use: cigarettes Smoking packs per day: 1.5 Smoking cigarettes per day: 30.0 Years smoked: 35 Smoking pack-years: 52.50 Do you use any of these nicotine containing products: Vaping Products Nicotine containing products detail: has tried vaping does not care for it Second hand tobacco smoke exposure: Yes How often do you have a drink containing alcohol: 2-3 times a week Alcohol type: hard liquor How many standard drinks containing alcohol do you have on a typical day: 3 or 4 How often do you have six or more drinks on one occasion: Monthly AUDIT-C Alcohol total score: 6 Non-prescribed substance use: denies use How often does anyone, including family, friends and others, physically hurt you : never How often does anyone, including family, friends and others, insult or talk down to you: never How often does anyone, including family, friends and others, threaten you with harm: never How often does anyone, including family, friends and others, scream or curse at you: never service: No <Paul Childers MD - Last Filed: 05/02/25 00:33> Exam Narrative: Exam Narrative: On examination in the stabilization room 2 he is in no apparent distress, he does appear nontoxic and smell of smoke. His pupils are equal round reactive to light there is no scleral icterus redness is TMs are normal his oropharynx is normal, his neck is supple full range of motion motion, chest is good air entry bilateral with no wheezing crackles noted his heart sounds are normal. He tells me is sore in the abdomen but he has normal bowel sounds, and when I listen. He does not really have any rigidity or anything else to suggest pain. No going all hernias or masses noted normal male genitalia moves all extremities independently and well. <Paul Childers MD - Last Filed: 05/02/25 00:33> Const: Vital Signs, click to edit/add: Vital Signs - 24 hr 05/01/25 20:25 05/01/25 22:33 05/02/25 00:10 Temperature 97.7 F Pulse Rate [Pulse Oximeter] 99 93 Respiratory Rate 18 16 Blood Pressure [Ri ght Upper Arm] 146/106 H 173/105 H Pulse Oximetry 98 98 96 Oxygen Delivery Me thod Room Air Room Air Room Air <Paul Childers MD - Last Filed: 05/02/25 00:33> Vital Signs, click to edit/add: Vital Signs - 24 hr 05/01/25 20:25 05/01/25 22:33 05/02/25 00:10 Temperature 97.7 F Pulse Rate [Pulse Oximeter] 99 93 Respiratory Rate 18 16 Blood Pressure [Ri ght Upper Arm] 146/106 H 173/105 H Pulse Oximetry 98 98 96 Oxygen Delivery Me thod Room Air Room Air Room Air <Nader Roque MD - Last Filed: 05/02/25 01:23> Course Course ED Course: Discussed with the patient we will get a CT scan, he tells me his pain is not improved with the morphine. We will give him some Dilaudid I will sign him out to the oncoming provider, with a CT scan pending and the likelihood of admission at this time for pain control, IV fluids, NPO status. <Paul Childers MD - Last Filed: 05/02/25 00:33> Reevaluation(s) Time of Reevaluation #1: 00:26 <Nader Roque MD - Last Filed: 05/02/25 01:23> Reevaluation #1: Sign-out from a prior provider. Patient with history of alcohol dependence, as well as pancreatitis and gastric ulcer who comes in today with 4 days of abdominal pain, continues to drink alcohol. Vital is stable on exam, labs intermittently interpreted by me with lipase 2503, urine ketones, criss mild hyponatremia. Fluids, Protonix, morphine and Dilaudid were given. <Nader Roque MD - Last Filed: 05/02/25 01:23> Time of Reevaluation #2: 00:34 <Nader Roque MD - Last Filed: 05/02/25 01:23> Reevaluation #2: CT abdomen pelvis and interpreted by me some with question of of a pancreatic cyst as well, cholelithiasis without evidence for acute cholecystitis, no intrahepatic biliary dilatation or common biliary duct dilatation to suggest biliary obstruction. Plan for admission. <Nader Roque MD - Last Filed: 05/02/25 01:23> Time of Reevaluation #3: 01:22 <Nader Roque MD - Last Filed: 05/02/25 01:23> Reevaluation #3: [facility]. <Nader Roque MD - Last Filed: 05/02/25 01:23> Vital Signs Vital signs: Initial Vital Signs Temperature 97.7 F 05/01/25 20:25 Temperature Source Temporal Artery Scan 05/01/25 20:25 Pulse Rate 99 05/01/25 20:25 Respiratory Rate 18 05/01/25 20:25 Blood Pressure 146/106 H 05/01/25 20:25 Blood Pressure Mean 119 H 05/01/25 20:25 Blood Pressure Position Sitting 05/01/25 20:25 Pulse Oximetry 98 05/01/25 20:25 Oxygen Delivery Method Room Air 05/01/25 20:25 Vital Signs Temperature 97.7 F 05/01/25 20:25 Pulse Rate 99 05/01/25 20:25 Respiratory Rate 18 05/01/25 20:25 Blood Pressure 146/106 H 05/01/25 20:25 Pulse Oximetry 98 05/01/25 20:25 Oxygen Delivery Method Room Air 05/01/25 20:25 Temperature 97.7 F 05/01/25 20:25 Pulse Rate 93 05/02/25 00:10 Respiratory Rate 16 05/02/25 00:10 Blood Pressure 173/105 H 05/02/25 00:10 Pulse Oximetry 96 05/02/25 00:10 Oxygen Delivery Method Room Air 05/02/25 00:10 <Paul Childers MD - Last Filed: 05/02/25 00:33> Initial Vital Signs Temperature 97.7 F 05/01/25 20:25 Temperature Source Temporal Artery Scan 05/01/25 20:25 Pulse Rate 99 05/01/25 20:25 Respiratory Rate 18 05/01/25 20:25 Blood Pressure 146/106 H 05/01/25 20:25 Blood Pressure Mean 119 H 05/01/25 20:25 Blood Pressure Position Sitting 05/01/25 20:25 Pulse Oximetry 98 05/01/25 20:25 Oxygen Delivery Method Room Air 05/01/25 20:25 Vital Signs Temperature 97.7 F 05/01/25 20:25 Pulse Rate 99 05/01/25 20:25 Respiratory Rate 18 05/01/25 20:25 Blood Pressure 146/106 H 05/01/25 20:25 Pulse Oximetry 98 05/01/25 20:25 Oxygen Delivery Method Room Air 05/01/25 20:25 Temperature 97.7 F 05/01/25 20:25 Pulse Rate 93 05/02/25 00:10 Respiratory Rate 16 05/02/25 00:10 Blood Pressure 173/105 H 05/02/25 00:10 Pulse Oximetry 96 05/02/25 00:10 Oxygen Delivery Method Room Air 05/02/25 00:10 <Nader Roque MD - Last Filed: 05/02/25 01:23> Medications Administered Medications: Discontinued Medications Generic Name Dose Route Start Last Admin Trade Name Freq PRN Reason Stop Dose Admin Hydromorphone HCl 0.5 mg 05/02/25 00:01 05/02/25 00:09 Hydromorphone 0.5 Mg/0.5 Ml Inj IVP 05/02/25 00:02 0.5 mg ONCE ONE Administration Sodium Chloride 1,000 mls @ 1,000 mls/hr 05/01/25 22:45 05/01/25 23:40 0.9 % Sodium Chloride 1000 Ml IV 05/01/25 23:44 Infused .Q1H LORENE Infusion Morphine Sulfate 4 mg 05/01/25 22:33 05/01/25 22:46 Morphine 4 Mg/Ml Inj IVP 05/01/25 22:34 4 mg ONCE ONE Administration Pantoprazole Sodium 40 mg 05/01/25 22:33 05/01/25 22:46 Pantoprazole Sodium 40 Mg Inj IVP 05/01/25 22:34 40 mg ONCE ONE Administration <Paul Childers MD - Last Filed: 05/02/25 00:33> Discontinued Medications Generic Name Dose Route Start Last Admin Trade Name Freq PRN Reason Stop Dose Admin Hydromorphone HCl 0.5 mg 05/02/25 00:01 05/02/25 00:09 Hydromorphone 0.5 Mg/0.5 Ml Inj IVP 05/02/25 00:02 0.5 mg ONCE ONE Administration Sodium Chloride 1,000 mls @ 1,000 mls/hr 05/01/25 22:45 05/01/25 23:40 0.9 % Sodium Chloride 1000 Ml IV 05/01/25 23:44 Infused .Q1H LORENE Infusion Morphine Sulfate 4 mg 05/01/25 22:33 05/01/25 22:46 Morphine 4 Mg/Ml Inj IVP 05/01/25 22:34 4 mg ONCE ONE Administration Pantoprazole Sodium 40 mg 05/01/25 22:33 05/01/25 22:46 Pantoprazole Sodium 40 Mg Inj IVP 05/01/25 22:34 40 mg ONCE ONE Administration <Nader Roque MD - Last Filed: 05/02/25 01:23> MDM - Abdominal Pain MDM Narrative Medical decision making narrative: During this evaluation of this patient I considered multiple differential diagnosis is which included the life-threatening such as appendicitis, aortic aneurysm, mesenteric ischemia, bowel perforation, volvulus, and bowel obstruction. Other differential diagnosis is include but are not limited to cholecystitis, pancreatitis, hepatitis, gastritis, GERD, diverticulitis, peptic ulcer disease, pyelonephritis/UTI, renal colic/stone, testicular torsion as well as other acute scrotal processes, inflammatory bowel disease, as well as other etiologies I explained to him that a lot of this needs to be followed up by 1 person. At the present time I am thinking this is more likely chronic as opposed to acute. We will however check some laboratory work, and I will give him some morphine. For his abdominal pain . I did tried to review the [facility]'s ER visit but unfortunately I was unable to get this off a epic. <Paul Childers MD - Last Filed: 05/02/25 00:33> Differential Diagnosis Differential diagnosis: Likely abdominal pain, acute appendicitis, calculus of kidney, constipation, endometriosis, gastroenteritis, pancreatitis and small bowel obstruction <Paul Childers MD - Last Filed: 05/02/25 00:33> Lab Data Labs: Lab Results 05/01/25 Range/Units 22:48 WBC 9.73 (4.50-11.00) K/uL RBC 5.38 (4.30-5.90) m/uL Hgb 17.0 (13.5-17.5) gm/dL Hct 49.5 (37.0-53.0) % MCV 92 (80-100) fL MCH 32 (26-34) pg MCHC 34 (32-36) gm/dL RDW Coeff of Waldemar 12.7 (11.5-15.5) % Plt Count 397 (140-440) K/uL Neut % (Auto) 75.8 H (42.0-72.0) % Lymph % (Auto) 15.9 L (20-44) % Walsh % (Auto) 5.2 (0.0-11.0) % Eos % (Auto) 2.0 (0.0-7.0) % Baso % (Auto) 0.1 (0.0-3.0) % Neut # (Auto) 7.40 H (1.7-7.0) K/uL Lymph # (Auto) 1.50 (0.90-2.90) K/uL Walsh # (Auto) 0.50 (0.00-0.90) K/UL Eos # (Auto) 0.19 (0.00-0.50) K/uL Baso # (Auto) 0.01 (0.00-0.30) K/uL Abs Immat Gran (auto) 0.10 (0.00-0.30) K/uL Imm/Tot Granulo (auto) 1.0 % Sodium 130 L (135-149) mmol/L Potassium 4.1 (3.6-5.1) mmol/L Chloride 94 L (96-114) mmol/L Carbon Dioxide 22 (20-32) mmol/L Anion Gap 14 (7-15) mEq/L BUN 12 (7-30) mg/dL Creatinine 0.6 (0.5-1.5) mg/dL Estimated Creat Clear 114.68 Estimated GFR 115 ml/min Glucose 101 (60-115) mg/dL Lactate 1.5 (0.5-1.9) mmol/L Calcium 10.1 (8.4-10.6) mg/dL Total Bilirubin 1.1 (0.1-1.5) mg/dL Direct Bilirubin 0.5 (0.0-0.5) mg/dL AST 27 (12-35) U/L ALT 13 (4-50) U/L Alkaline Phosphatase 69 (40-150) U/L C-Reactive Protein 4.2 H (0.5-1.0) mg/dL Total Protein 9.2 H (6.0-8.3) g/dL Albumin 4.9 (3.3-5.0) g/dL Lipase 2503 H (23-300) U/L Urine Color Yellow (Yellow) Urine Appearance Clear (Clear) Urine pH 5.5 (5.0-8.5) Ur Specific [place] >= 1.030 (1.000-1.030) Urine Protein 2+ A (Negative) Urine Glucose (UA) Negative (Negative) Urine Ketones 4+ A (Negative) Urine Blood 1+ A (Negative) Urine Nitrite Negative (Negative) Urine Bilirubin 1+ A (Negative) Urine Urobilinogen 0.2 (0.2-1.0) Ur Leukocyte Esterase Negative (Negative) Urine RBC 0-2 (0-2) Urine WBC 0-2 (0-5) Ur Squamous Epith Cells Moderate A (None-Few) Amorphous Sediment Few A (None) Urine Bacteria Few A (None) Urine Mucus Few A (None) Ethyl Alcohol < 0.01 (0.01-0.03) % <Paul Childers MD - Last Filed: 05/02/25 00:33> Lab Results 05/01/25 Range/Units 22:48 WBC 9.73 (4.50-11.00) K/uL RBC 5.38 (4.30-5.90) m/uL Hgb 17.0 (13.5-17.5) gm/dL Hct 49.5 (37.0-53.0) % MCV 92 (80-100) fL MCH 32 (26-34) pg MCHC 34 (32-36) gm/dL RDW Coeff of Waldemar 12.7 (11.5-15.5) % Plt Count 397 (140-440) K/uL Neut % (Auto) 75.8 H (42.0-72.0) % Lymph % (Auto) 15.9 L (20-44) % Walsh % (Auto) 5.2 (0.0-11.0) % Eos % (Auto) 2.0 (0.0-7.0) % Baso % (Auto) 0.1 (0.0-3.0) % Neut # (Auto) 7.40 H (1.7-7.0) K/uL Lymph # (Auto) 1.50 (0.90-2.90) K/uL Walsh # (Auto) 0.50 (0.00-0.90) K/UL Eos # (Auto) 0.19 (0.00-0.50) K/uL Baso # (Auto) 0.01 (0.00-0.30) K/uL Abs Immat Gran (auto) 0.10 (0.00-0.30) K/uL Imm/Tot Granulo (auto) 1.0 % Sodium 130 L (135-149) mmol/L Potassium 4.1 (3.6-5.1) mmol/L Chloride 94 L (96-114) mmol/L Carbon Dioxide 22 (20-32) mmol/L Anion Gap 14 (7-15) mEq/L BUN 12 (7-30) mg/dL Creatinine 0.6 (0.5-1.5) mg/dL Estimated Creat Clear 114.68 Estimated GFR 115 ml/min Glucose 101 (60-115) mg/dL Lactate 1.5 (0.5-1.9) mmol/L Calcium 10.1 (8.4-10.6) mg/dL Total Bilirubin 1.1 (0.1-1.5) mg/dL Direct Bilirubin 0.5 (0.0-0.5) mg/dL AST 27 (12-35) U/L ALT 13 (4-50) U/L Alkaline Phosphatase 69 (40-150) U/L C-Reactive Protein 4.2 H (0.5-1.0) mg/dL Total Protein 9.2 H (6.0-8.3) g/dL Albumin 4.9 (3.3-5.0) g/dL Lipase 2503 H (23-300) U/L Urine Color Yellow (Yellow) Urine Appearance Clear (Clear) Urine pH 5.5 (5.0-8.5) Ur Specific Dors[place] >= 1.030 (1.000-1.030) Urine Protein 2+ A (Negative) Urine Glucose (UA) Negative (Negative) Urine Ketones 4+ A (Negative) Urine Blood 1+ A (Negative) Urine Nitrite Negative (Negative) Urine Bilirubin 1+ A (Negative) Urine Urobilinogen 0.2 (0.2-1.0) Ur Leukocyte Esterase Negative (Negative) Urine RBC 0-2 (0-2) Urine WBC 0-2 (0-5) Ur Squamous Epith Cells Moderate A (None-Few) Amorphous Sediment Few A (None) Urine Bacteria Few A (None) Urine Mucus Few A (None) Ethyl Alcohol < 0.01 (0.01-0.03) % <Nader Roque MD - Last Filed: 05/02/25 01:23> Discharge Plan Discharge Clinical Impression: Acute alcoholic pancreatitis, Alcohol abuse, Pancreatic lesion, Smoking <Paul Childers MD - Last Filed: 05/02/25 00:33> Patient Disposition: Admitted As Inpatient <Paul Childers MD - Last Filed: 05/02/25 00:33>
[2025-05-01 23:13] LABS: Albumin* 4.9 g/dL (3.3-5.0); Chloride* 94 mmol/L (96-114); Potassium* 4.1 mmol/L (3.6-5.1); Sodium* 130 mmol/L (135-149)
[2025-05-01 23:16] LABS: Alanine Aminotransferase* 13 U/L (4-50); Alkaline Phosphatase* 69 U/L (40-150); Anion Gap 14 mEq/L (7-15); Aspartate Amino Transferase* 27 U/L (12-35); Bilirubin Direct* 0.5 mg/dL (0.0-0.5); Bilirubin Total* 1.1 mg/dL (0.1-1.5); Blood Urea Nitrogen* 12 mg/dL (7-30); Calcium* 10.1 mg/dL (8.4-10.6); Carbon Dioxide* 22 mmol/L (20-32); Creatinine* 0.6 mg/dL (0.5-1.5); Est. Creatinine Clearance* 114.68; Estimated Glomerular Filt Rate 115 ml/min; Glucose* 101 mg/dL (60-115); Total Protein* 9.2 g/dL (6.0-8.3)
[2025-05-01 23:19] LABS: Ethanol* < 0.01 % (0.01-0.03); Lymphocytes Absolute Auto 1.50 K/uL (0.90-2.90); Slide Review Reflex No
[2025-05-02] VITALS (8 sets, daily range): BP systolic 149–173; BP diastolic 89–113; PULSE 79–93; RESP 16–22; TEMP 36.4–37; O2SAT 9–100; BMI 18.0; BMI 18.1
--- NOTE | 2025-05-02 00:01 | CRLHL7_ITS ---
For Patients: As a result of the Century Cures Act, medical imaging exams and procedure reports are released immediately into your electronic medical record. You may view this report before your referring provider. If you have questions, please contact your health care provider. INDICATION: Abdominal pain, elevated lipase. TECHNIQUE: CT abdomen and pelvis acquired with 63 cc of Isovue 370 IV contrast. COMPARISON: CT chest, abdomen, and pelvis 04/07/2025. FINDINGS: Lower chest: Unremarkable. Liver: Unchanged hemangioma in the left hepatic lobe. Normal in size and contour. No suspicious masses. Gallbladder and bile ducts: Cholelithiasis. No inflammation or biliary ductal dilation. Pancreas: 8 mm hypodense lesion within the pancreatic head, not significantly changed compared to the prior exam. Unchanged prominence of the main pancreatic duct Spleen: Unremarkable. Normal in size. No masses. Adrenal glands: Unremarkable. No nodules. Kidneys: Unremarkable. No suspicious masses, stones, or hydronephrosis. GI tract: Unremarkable. Normal in caliber. No sign of mass or inflammation. Normal appendix. Vasculature: Normal caliber abdominal aorta with mild atherosclerotic calcification. Mesenteric arteries are patent. Lymph nodes: No lymphadenopathy. Peritoneum/Abdominal Wall: Unremarkable. No free air or significant free fluid. Pelvis: Unremarkable. Bones: Unremarkable for age. IMPRESSION: 1. No acute findings within the abdomen or pelvis. No evidence for acute pancreatitis. 2. Unchanged 8 mm hypodense lesion within the pancreatic head, likely a side branch intraductal papillary mucinous neoplasm. Unchanged mild prominence of the main pancreatic duct. 3. Cholelithiasis. Please note that all CT scans at this facility use dose modulation, iterative reconstruction, and/or weight-based dosing when appropriate to reduce radiation dose to as low as reasonably achievable. Dictated by Guy Mendoza MD @ 05/02/2025 12:44:56 AM (Electronically Signed)
--- NOTE | 2025-05-02 01:11 | W.PM.TELEH&P ---
Telehealth- H&P: HPI History of Present Illness Time Seen by Provider: 03:20 Date Seen: 05/02/25 Chief complaint: abd. and back pain Narrative: Eduardo Morillo is seen as an Interactive Telehealth visit. Eduardo Morillo is a 54 year old male who Has a past medical history of hypertension, gastric ulcer, pancreatic lesion, alcohol abuse, previous bouts of alcohol induced pancreatitis who presents to the emergency department with complaint of abdominal and back pain. Patient states that a few days ago, developed diffuse abdominal and diffuse back pain with acute worsening today which prompted his visit to the emergency department. He reports the pain in his back pain is sharp and the pain in his abdomen as aching, both nonradiating, no associated symptoms, exacerbated by eating or drinking anything, alleviated by Dilaudid given in the emergency department. Due to his symptoms, has not had adequate p.o. intake for the last few days and subsequently has not had any bowel movement in the last 3 to 4 days. He denies any change in his urinary habits. He continues to consume alcohol, typically drinks 3 to 4 glasses of whiskey mixed with water which are approximately 12 ounces. His last drink was Friday. He denies any current or past history of alcohol withdrawal symptoms or alcohol withdrawal seizures. He states that the longest he has been without a drink has been a few months and did not have any withdrawal symptoms at that time. Denies any other current complaints or symptoms. ED course: Vital signs on presentation significant for: Blood pressure 173/107 Initial laboratory evaluation significant for: Sodium 130, chloride 94, CRP 4.2, total protein 9.2, albumin 4.9, lipase 2523, urinalysis negative for infection, blood alcohol level negative CT abd/pelv revealed: No acute findings within the abdomen or pelvis. No evidence for acute pancreatitis. Unchanged 8 mm hypodense lesion within the pancreatic head, likely a sidebranch intraductal papillary mucinous neoplasm. Unchanged mild prominence of the main pancreatic duct. Cholelithiasis. Therapies provided in the emergency department included: Morphine 4 mg, Dilaudid 0.5 mg x 2, 1 L NS bolus, Protonix 40 mg Tele- Hospitalist team contacted for further evaluation and management. Review of Systems Status of ROS: Reports: 10 or more systems reviewed and unremarkable except as noted in History and below [facility] Medical History Weight loss ?R63.4 - Abnormal weight loss (ICD-10) Acute pancreatitis ?K85.90 - Acute pancreatitis without necrosis or infection, unspecified (ICD-10) Stroke ?I63.9 - Cerebral infarction, unspecified (ICD-10) Obstructive sleep apnea ?G47.33 - Obstructive sleep apnea (adult) (pediatric) (ICD-10) Cholelithiasis ?K80.20 - Calculus of gallbladder without cholecystitis without obstruction (ICD-10) Smoking ?F17.200 - Nicotine dependence, unspecified, uncomplicated (ICD-10) Alcohol abuse ?F10.10 - Alcohol abuse, uncomplicated (ICD-10) Hypercholesteremia ?E78.00 - Pure hypercholesterolemia, unspecified (ICD-10) Surgical History History of carotid endarterectomy ?Z98.890 - Other specified postprocedural states (ICD-10) Social History What is your current living situation?: I presently have a place to live Problems where you live: no known problems In the past 12 months, utilities in danger of being shut off: no In past 12 months, lack of transportation kept you from medical appts, meetings, work, or getting things needed for daily living: no In the past 12 mos, have been you worried that your food would run out before you had money to buy more?: never true In the past 12 mos, the food you bought just didn't last and you didn't have money to buy more?: never true Smoking Status: Current every day smoker What tobacco products do you use: cigarettes Smoking packs per day: 1.5 Smoking cigarettes per day: 30.0 Years smoked: 35 Smoking pack-years: 52.50 Do you use any of these nicotine containing products: Vaping Products Nicotine containing products detail: has tried vaping does not care for it Second hand tobacco smoke exposure: Yes How often do you have a drink containing alcohol: 2-3 times a week Alcohol type: hard liquor How many standard drinks containing alcohol do you have on a typical day: 3 or 4 How often do you have six or more drinks on one occasion: Monthly AUDIT-C Alcohol total score: 6 Non-prescribed substance use: denies use Caffeine: No How often does anyone, including family, friends and others, physically hurt you: never How often does anyone, including family, friends and others, insult or talk down to you: never How often does anyone, including family, friends and others, threaten you with harm: never How often does anyone, including family, friends and others, scream or curse at you: never service: No Meds Home Medications and Allergies Home Medications ?Medication ?Instructions ?Recorded ?Confirmed ?Type omeprazole 40 mg capsule,delayed 40 mg PO BID #60 caps 04/08/25 Rx release ondansetron 4 mg disintegrating 4 mg PO Q8H PRN nausea and 04/08/25 Rx tablet vomiting #10 tabs oxycodone 5 mg tablet 5 - 10 mg (1 - 2 x 5 mg) PO Q4H 04/08/25 Rx PRN Pain #20 tabs sucralfate 100 mg/mL oral 10 ml PO QID #414 mL 04/08/25 Rx suspension Allergies Allergy/AdvReac Type Severity Reaction Status Date / Time No Known Drug Allergies Allergy Verified 05/02/25 00:31 Exam Narrative Exam Narrative: Physical Exam GENERAL: ?vital signs reviewed, well developed and nourished, in no distress HEENT: pupils are equal round and reactive to light, extraocular movements are grossly within normal limits and oral mucosa is dry . NECK: Supple without lymphadenopathy or thyromegaly according to nursing staff examination observation HEART: Regular rate and rhythm without any rubs, murmurs, or gallops. LUNGS: Clear to auscultation bilaterally with good air movement throughout ABDOMEN: Observation from nurse assisted exam, abdomen appears soft, diffuse tenderness in all quadrants w/o guarding, and nondistended with Positive bowel sounds noted. EXTREMITIES: Strength and sensation is observed to be grossly within normal limits in the upper and lower extremities.? No focal strength deficit is observed. SKIN:? Observed warm and dry with color normal Const Vital Signs, click to edit/add: Vital Signs - 24 hr 05/01/25 20:25 05/01/25 22:33 05/02/25 00:10 Temperature 97.7 F Pulse Rate [Pulse Oximeter] 99 93 Respiratory Rate 18 16 Blood Pressure [Right Upper Arm] 146/106 H 173/105 H Pulse Oximetry 98 98 96 Oxygen Delivery Method Room Air Room Air Room Air Hospitalist - H&P: Result Labs Labs: Short CBC 05/01/25 Range/Units 22:48 WBC 9.73 (4.50-11.00) K/uL Hgb 17.0 (13.5-17.5) gm/dL Hct 49.5 (37.0-53.0) % Plt Count 397 (140-440) K/uL BMP 05/01/25 22:48 Sodium 130 L Potassium 4.1 Chloride 94 L Carbon Dioxide 22 BUN 12 Creatinine 0.6 Glucose 101 Calcium 10.1 Liver Function 05/01/25 Range/Units 22:48 Total Bilirubin 1.1 (0.1-1.5) mg/dL Direct Bilirubin 0.5 (0.0-0.5) mg/dL AST 27 (12-35) U/L ALT 13 (4-50) U/L Alkaline Phosphatase 69 (40-150) U/L Albumin 4.9 (3.3-5.0) g/dL Urine 05/01/25 Range/Units 22:48 Urine Color Yellow (Yellow) Urine Appearance Clear (Clear) Urine pH 5.5 (5.0-8.5) Ur Specific [place] >= 1.030 (1.000-1.030) Urine Protein 2+ A (Negative) Urine Glucose (UA) Negative (Negative) Imaging CT Chest/Ab/Pelvis: Attestation: I have reviewed the pertinent imaging results. Assessment and Plan Assessment and plan (1) Acute alcoholic pancreatitis: Status: Acute (2) Abdominal pain: Problem comment: Acute on chronic worsening over the last several weeks, severe prior to admission. improving with NPO, IVF, narcotic pain medications. CT shows acute gastric ulceration. patient denies previous history of ulcerations. also has a known pancreatic mass /lesion. Status: Acute Plan 54-year-old male with past medical history significant for gastric ulcer, pancreatic lesion, alcohol abuse, previous bouts of alcohol-induced pancreatitis who presents to the emergency department complaint of abdominal pain, workup concerning for acute alcoholic pancreatitis. # Acute pancreatitis # Choleliathiasis # Abdominal pain # History of gastric ulcer # Histroy of pancreatic lesion -CT abdomen/pelvis revealed: No acute findings within the abdomen or pelvis. No evidence for acute pancreatitis. Unchanged 8 mm hypodense lesion within the pancreatic head, likely a sidebranch intraductal papillary mucinous neoplasm. Unchanged mild prominence of the main pancreatic duct. Cholelithiasis. -obtain liver US; r/o gallstone pancreatitis -initial lipase 2523; trend as needed -status post 1 L Plasmalyte bolus -continue on IV maintenance fluids -patient made NPO -blood alcohol level negative -check triglyceride level -p.r.n. Analgesics -p.r.n. Antiemetics -Protonix daily -outpatient follow up for pancreatic lesion # Accelerated hypertension # History of essential hypertension -resume home antihypertensives (dont see any on meds list, unclear if taking any) -adequate pain control -additional p.r.n. antihypertensives # Hyponatremia, mild -patient appears euvolemic to mildly dry on exam -sodium 130 on presentation -suspect /t decrease PO intake/solute intake -status post 1 L Plasmalyte bolus -continue IV maintenance fluids -no more than 6 - 8 mEq correction over 24 hours -continue monitor # History of alcohol abuse/dependence -last drink 3/4 days ago; denying any withdrawal symptoms or withdrawal history -monitor for signs of withdrawal -start on daily thiamin, folic acid, multivitamin -cessation counseling #Chronic tobacco consumption -nicotine path ordered -cessation counseling DVT prophylaxis: SCDs Code status: Full Disposition: Pending clinical improvement and management above. Patient high risk as outlined above Total Time Spent Total Time Spent: 98 minutes Telehealth: Statement Statement Telehealth Visit: Today's History and Physical is provided via interactive telehealth by Fernando Mast MD.? Patient is located at [facility].? Provider is located at [facility].? Nursing staff assisted with the patient's exam. The visit being done today meets criteria for a telehealth visit and the patient or patient?s parent/guardian is aware the visit is a telehealth visit. Camera Start Time: 03:20 Camera End Time: 03:37
[2025-05-02] MEDS: MORPHINE 4 MG/ML INJ 2 MG IVP (04:10)
[2025-05-02] MEDS: LACTATED RINGERS 1000 ML 1,000 ML 125 ML IV ×3 (04:43→20:58)
[2025-05-02] MEDS: SODIUM CHLORIDE 0.9 % (FLUSH) 10 ML SYRINGE 5 ML IVF ×2 (06:24→08:56)
[2025-05-02] MEDS: HYDRALAZINE HCL 20 MG/ML inj 10 MG IVP (06:26)
[2025-05-02] MEDS: FOLIC ACID 1 MG TABLET PO (08:56)
[2025-05-02] MEDS: MULTIVITAMIN/MINERALS 1 TABLET 1 TAB PO (08:56)
[2025-05-02] MEDS: THIAMINE 100 MG TABLET PO (08:56)
[2025-05-02] MEDS: ACETAMINOPHEN INJ 1,000 MG/100 ML VIAL 400 MG IVPB ×3 (09:03→20:56)
[2025-05-02] MEDS: SUCRALFATE 1 GM TABLET PO ×3 (09:03→16:54)
[2025-05-02 13:08] LABS: Hematocrit* 45.5 % (37.0-53.0); Hemoglobin* 15.7 gm/dL (13.5-17.5); Immature Granulocytes Abs Auto 0.01 K/uL (0.00-0.30); Immature Granulocytes Pct Auto 0.1 %; Lymphocytes Absolute Auto 2.12 K/uL (0.90-2.90); Mean Corpuscular HGB Conc 35 gm/dL (32-36); Mean Corpuscular Hemoglobin 32 pg (26-34); Mean Corpuscular Volume 93 fL (80-100); RDW Coefficient of Variation % 13.0 % (11.5-15.5); Red Blood Count* 4.92 m/uL (4.30-5.90); White Blood Count* 9.74 K/uL (4.50-11.00)
[2025-05-02 13:11] LABS: Slide Review Reflex No
[2025-05-02 13:20] LABS: Albumin* 4.4 g/dL (3.3-5.0); Chloride* 96 mmol/L (96-114); Potassium* 4.1 mmol/L (3.6-5.1); Sodium* 130 mmol/L (135-149)
[2025-05-02 13:23] LABS: Anion Gap 13 mEq/L (7-15); Blood Urea Nitrogen* 8 mg/dL (7-30); Carbon Dioxide* 21 mmol/L (20-32); Creatinine* 0.6 mg/dL (0.5-1.5); Est. Creatinine Clearance* 116.94; Estimated Glomerular Filt Rate 115 ml/min
[2025-05-02 13:24] LABS: Calcium* 9.6 mg/dL (8.4-10.6); Glucose* 84 mg/dL (60-115); INR 1.01 (0.91-1.10); Prothrombin Time 14.1 Seconds
--- NOTE | 2025-05-02 15:02 | CRLHL7_ITS ---
For Patients: As a result of the Century Cures Act, medical imaging exams and procedure reports are released immediately into your electronic medical record. You may view this report before your referring provider. If you have questions, please contact your health care provider. INDICATION: Abdominal pain. Elevated lipase. Cholelithiasis. TECHNIQUE: Ultrasound abdomen limited. Sonographic images of the right upper quadrant were obtained using bose-scale and color Doppler images. COMPARISON: Same day CT abdomen and pelvis FINDINGS: Liver: 1.9 centimeter circumscribed subcapsular echogenic focus left lobe of the liver anteriorly consistent with a hemangioma, as noted on CT. Gallbladder: 2 gallbladder shadowing stones measuring up to 9 millimeter. Normal wall thickness. No pericholecystic fluid. Common bile duct: 4 mm. Pancreas: Obscured by bowel gas. Right kidney: 11.7 cm. Normal echotexture and cortex. No suspicious masses, stones, or hydronephrosis. Vasculature: Proximal abdominal aorta and IVC are normal. IMPRESSION: 1. Cholelithiasis. No accompanying changes to suggest acute cholecystitis 2. 1.9 centimeter left hepatic subcapsular hemangioma. 3. Pancreas obscured by bowel gas. Dictated by Vance Thapa MD @ 05/02/2025 4:04:48 PM (Electronically Signed)
--- NOTE | 2025-05-02 15:04 | PM.IMPN1 ---
Assessment and Plan Assessment and plan (1) Abdominal pain: Problem comment: -Differential: -pancreatitis from IPM mucin obstruction. follow labs and supportive care. -gastritis, ulcer - HPylori neg on 04/12. Endoscopy 05/03 -biliary colic - ct showed gallstones; u/s to review for evidence of cholethliasis Status: Acute (2) Elevated lipase: Problem comment: -no evidence of pancreatitis on imaging. IPMN? mucin obstruction? gallstones? Status: Acute (3) IPMN (intraductal papillary mucinous neoplasm): Status: Acute (4) Gastric ulcer: Problem comment: this admissions CT makes no note of gastric ulcer. H Pylori negative. needs EGD and abdominal u/s. Status: Acute (5) Alcohol abuse: Problem comment: Reports whisky drinking 3-4 whiskey drinks 2-4 times weekly. history of pancreatitis in the past. Status: Acute (6) Hypertension: Problem comment: -starting lisinopril 20mg 05/02/25 Status: Acute (7) On antibiotic therapy: Problem comment: interesting notes from ID regarding pt's insistence that he has tertiary syphilis. Id and the patient settled on a month of doxycycline to cover for folliculitis is of the face as well as coverage for syphilis. Last day of doxycycline should be on or about May 05. Status: Acute (8) Smoking: Problem comment: Likely contributes to pancreatitis risk. Continues to smoke 1-1.5 packs daily. Status: Acute (9) Weight loss: Problem comment: -down 2.4 kg since discharge last month; delta is 5.2lbs. Status: Acute Subjective Date Seen: 05/02/25 Interval history: Daily Progress Note - Hospital Medicine Day #: 1 CC: abdominal pain 12 HOUR UPDATE: Admitted by the tele hospitalist early this morning. He was admitted for abdominal pain. His lipase was elevated but he had no evidence of pancreatitis on CT. There is a history of a gastric ulcer however this was not mentioned on today's CT exam. He drinks whiskey nearly daily. He said his last drink was 4 days prior to admission. He denies symptoms of withdrawal. He continues to require IV opioids. Also taking sucralfate and IV acetaminophen. Notable Labs, Micro, Rads, Interventions: There is no evidence of elevated white blood cell count. His hemoglobin is stable. His platelets are normal. His INR is 1.01 His liver enzymes were negative at admission. Normal renal function. CRP was modestly elevated at 4.2 and is down to 3.9. He has an elevated protein at 9.2. His lipase at admission was 2500 and is now down to 1500. 2+ protein noted in his urine, 4+ ketones, 1+ urinary bilirubin. Stool for H pylori negative on 04/12/2025 CT reviewed 1. No acute findings within the abdomen or pelvis. No evidence for acute pancreatitis. 2. Unchanged 8 mm hypodense lesion within the pancreatic head, likely a side branch intraductal papillary mucinous neoplasm. Unchanged mild prominence of the main pancreatic duct. 3. Cholelithiasis. Objective: looks tired. communicating well. Vitals: see above Lungs: Clear. Abdomen: soft. tender to palpation in the midepigastrum. Cardiac: S1S2. Disposition/Potential discharge - 05/03 - 05/04 TBD EGD results and pain management. Exam Const: Vital Signs, click to edit/add: Vital Signs - 24 hr 05/01/25 20:25 05/01/25 22:33 05/02/25 00:10 Temperature 97.7 F Pulse Rate [Pulse Oximeter] 99 93 Respiratory Rate 18 16 Blood Pressure [Ri ght Arm] Blood Pressure [Ri ght Upper Arm] 146/106 H 173/105 H Pulse Oximetry 98 98 96 Oxygen Delivery Me thod Room Air Room Air Room Air 05/02/25 02:27 05/02/25 02:27 05/02/25 07:00 Temperature 98.6 F Pulse Rate [Pulse Oximeter] 84 86 Respiratory Rate 18 18 16 Blood Pressure [Ri ght Arm] 173/107 H Blood Pressure [Ri ght Upper Arm] Pulse Oximetry 97 97 Oxygen Delivery Me thod Room Air Room Air 05/02/25 07:00 05/02/25 10:28 Temperature 98.6 F 98.6 F Pulse Rate [Pulse Oximeter] 86 81 Respiratory Rate 16 18 Blood Pressure [Ri ght Arm] 155/89 H 158/93 H Blood Pressure [Ri ght Upper Arm] Pulse Oximetry 100 100 Oxygen Delivery Me thod Room Air Room Air Labs Labs: Laboratory Results - last 24 hr 05/01/25 05/02/25 22:48 13:01 WBC 9.73 9.74 RBC 5.38 4.92 Hgb 17.0 15.7 Hct 49.5 45.5 MCV 92 93 MCH 32 32 MCHC 34 35 RDW Coeff of Waldemar 12.7 13.0 Plt Count 397 341 Neut % (Auto) 75.8 H 67.3 Lymph % (Auto) 15.9 L 21.8 [place] % (Auto) 5.2 6.6 Eos % (Auto) 2.0 4.1 Baso % (Auto) 0.1 0.1 Neut # (Auto) 7.40 H 6.56 Lymph # (Auto) 1.50 2.12 [place] # (Auto) 0.50 0.60 Eos # (Auto) 0.19 0.40 Baso # (Auto) 0.01 0.01 Abs Immat Gran (auto) 0.10 0.01 Imm/Tot Granulo (auto) 1.0 0.1 INR 1.01 Sodium 130 L 130 L Potassium 4.1 4.1 Chloride 94 L 96 Carbon Dioxide 22 21 Anion Gap 14 13 BUN 12 8 Creatinine 0.6 0.6 Estimated Creat Clear 114.68 116.94 Estimated GFR 115 115 Glucose 101 84 Lactate 1.5 Calcium 10.1 9.6 Phosphorus 3.8 Total Bilirubin 1.1 Direct Bilirubin 0.5 AST 27 ALT 13 Alkaline Phosphatase 69 C-Reactive Protein 4.2 H 3.9 H Total Protein 9.2 H Albumin 4.9 4.4 Lipase 2503 H 1481 H Urine Color Yellow Urine Appearance Clear Urine pH 5.5 Ur Specific [place] >= 1.030 Urine Protein 2+ A Urine Glucose (UA) Negative Urine Ketones 4+ A Urine Blood 1+ A Urine Nitrite Negative Urine Bilirubin 1+ A Urine Urobilinogen 0.2 Ur Leukocyte Esterase Negative Urine RBC 0-2 Urine WBC 0-2 Ur Squamous Epith Cells Moderate A Amorphous Sediment Few A Urine Bacteria Few A Urine Mucus Few A Ethyl Alcohol < 0.01
[2025-05-02 16:03] LABS: Cannabinoid Screen Urine Negative (Negative); Methamphetamines Screen Urine Negative (Negative); Tricyclic Antidepressant Urine Negative (Negative)
--- NOTE | 2025-05-02 18:20 | PC.NURSE ---
End of shift: patient a/o x4. 0 on CIWA. tolerating sips of broth. rating pain 01/20 PRN dilauded administered see emar. Patient ambulating to [facility]. EGD scheduled for 05/03 for epigastric pain source. pt. NPO at midnight. Still awaiting stool sample.
[2025-05-02] MEDS: OMEPRAZOLE 20 MG CAPSULE DR 40 MG PO (21:30)
[2025-05-02] MEDS: PHENobarbitaL 260 MG in 0.9 % SODIUM CHLORIDE 100 ml 100 ML 208 MG IVPB (23:54)
[2025-05-03] VITALS (7 sets, daily range): BP systolic 112–164; BP diastolic 36–105; PULSE 71–90; RESP 16–22; TEMP 36.4–36.8; O2SAT 96–100
[2025-05-03] MEDS: ACETAMINOPHEN INJ 1,000 MG/100 ML VIAL 400 MG IVPB ×4 (02:49→21:10)
[2025-05-03 06:41] LABS: Hematocrit* 40.3 % (37.0-53.0); Hemoglobin* 13.7 gm/dL (13.5-17.5); Immature Granulocytes Abs Auto 0.02 K/uL (0.00-0.30); Immature Granulocytes Pct Auto 0.2 %; Lymphocytes Absolute Auto 2.35 K/uL (0.90-2.90); Mean Corpuscular HGB Conc 34 gm/dL (32-36); Mean Corpuscular Hemoglobin 31 pg (26-34); Mean Corpuscular Volume 92 fL (80-100); RDW Coefficient of Variation % 12.8 % (11.5-15.5); Red Blood Count* 4.36 m/uL (4.30-5.90); White Blood Count* 8.57 K/uL (4.50-11.00)
[2025-05-03 06:45] LABS: Slide Review Reflex No
--- NOTE | 2025-05-03 06:57 | PC.NURSE ---
end of shift: Pt. AOx4. Pt. increased anxiousness and pain; MD in to see. Orders were updated, see EMAR. pain meds given. Pt. verbalized improvement of pain. Pt. passing gas and AMB hallways IND. Pt. NPO at midnight.
[2025-05-03 07:00] LABS: Albumin* 3.5 g/dL (3.3-5.0); Chloride* 99 mmol/L (96-114)
[2025-05-03 07:01] LABS: Potassium* 4.1 mmol/L (3.6-5.1)
[2025-05-03 07:03] LABS: Alanine Aminotransferase* 8 U/L (4-50); Alkaline Phosphatase* 49 U/L (40-150); Aspartate Amino Transferase* 19 U/L (12-35); Bilirubin Direct* 0.2 mg/dL (0.0-0.5); Bilirubin Total* 0.5 mg/dL (0.1-1.5); Blood Urea Nitrogen* 5 mg/dL (7-30); Carbon Dioxide* 24 mmol/L (20-32); Creatinine* 0.5 mg/dL (0.5-1.5); Est. Creatinine Clearance* 142.28; Estimated Glomerular Filt Rate 121 ml/min; Total Protein* 6.3 g/dL (6.0-8.3)
[2025-05-03 07:04] LABS: Calcium* 8.8 mg/dL (8.4-10.6); Glucose* 89 mg/dL (60-115)
[2025-05-03 07:46] LABS: Anion Gap 9 mEq/L (7-15); Sodium* 132 mmol/L (135-149)
--- NOTE | 2025-05-03 08:02 | CRLHL7_ITS ---
For Patients: As a result of the Century Cures Act, medical imaging exams and procedure reports are released immediately into your electronic medical record. You may view this report before your referring provider. If you have questions, please contact your health care provider. Indication: Increasing pain Technique: Abdomen 2 view. Comparison: CT abdomen pelvis 05/02/2025 Findings: Bowel: Nonobstructive bowel gas pattern. Gaseous dilation of the cecum measuring up to 9 centimeters. The amount of colonic stool is within normal limits. Other: No evidence of pneumoperitoneum on this limited view. Subdiaphragmatic regions of the abdomen are not included in the field of view. Impression: There is gaseous distention of the cecum, the bowel gas pattern is nonobstructive. Degree of gaseous distention of the cecum increases risk for perforation. Dictated by Carmel Regalado MD @ 05/03/2025 8:53:11 AM (Electronically Signed)
--- NOTE | 2025-05-03 09:22 | CRLHL7_ITS ---
For Patients: As a result of the Century Cures Act, medical imaging exams and procedure reports are released immediately into your electronic medical record. You may view this report before your referring provider. If you have questions, please contact your health care provider. INDICATION: Cecal distention, increased pain. TECHNIQUE: CT abdomen and pelvis following administration of IV contrast. COMPARISON: Abdominal radiographs 05/03/2025 right upper quadrant ultrasound and CT and pelvis 05/02/2025. FINDINGS: Motion degraded study limits assessment for subtle abnormalities. Lower chest: No pulmonary infiltrate, pleural effusion, or pneumothorax. Base of the heart, incompletely imaged distal thoracic esophagus, and incompletely imaged descending thoracic aorta are normal. Liver: No worrisome hepatic lesion. Benign hemangioma in the left lobe. Non-cirrhotic morphology. Gallbladder and bile ducts: No intrahepatic or extrahepatic biliary duct dilatation. Cholelithiasis, no CT evidence of acute cholecystitis Pancreas: Unchanged 0.8 cm hypodense lesion in the pancreas head (series 2, image 44) likely a side branch intraductal papillary mucinous neoplasm. Unchanged mild prominence of the main pancreatic duct dilatation. No peripancreatic inflammation. Spleen: Normal in size. No masses. Adrenal glands: Within normal limits. Kidneys: Kidneys enhance symmetrically. No hydronephrosis or hydroureter. No renal calculi. No worrisome renal lesions. GI tract: No abnormal wall thickening or visualized mass. No finding to suggest small or large bowel obstruction. Normal cecum, cecum measures up to 7 cm maximal dimension. Normal appendix. Vasculature: Moderate aortoiliac atherosclerosis. No abdominal aortic aneurysm. Patent portal venous system. Lymph nodes: No lymphadenopathy. Peritoneum/Retroperitoneum: No free air. Trace simple free fluid in the pelvis new since prior day CT, unclear etiology. Pelvic organs/Bladder: Mild circumferential urinary bladder wall thickening not seen on prior day CT, can be seen with cystitis. Mild prostatomegaly. Bones: No acute fractures. No worrisome osseous lesions. 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 Mild degenerative changes of the spine. Soft tissues: No abdominal wall defect or hernia. No subcutaneous or intramuscular collection or mass.. IMPRESSION: 1. Mild circumferential urinary bladder wall thickening new since the prior CT and can be seen with cystitis. Correlate with urinalysis. 2. Trace nonspecific pelvic ascites not seen on the prior CT, unclear etiology. 3. Normal diameter and appearance of the cecum. 4. Cholelithiasis, no CT evidence of acute cholecystitis. 5. Unchanged subcentimeter hypodense lesion in the pancreas head most likely a side branch IPMN. Consider nonemergent pancreas mass protocol MRI and follow-up per GI recommendations. Please note that all CT scans at this facility use dose modulation, iterative reconstruction, and/or weight-based dosing when appropriate to reduce radiation dose to as low as reasonably achievable. Dictated by Guy Ruano MD @ 05/03/2025 10:43:42 AM (Electronically Signed)
[2025-05-03] MEDS: SODIUM CHLORIDE 0.9 % (FLUSH) 10 ML SYRINGE 5 ML IVF ×2 (09:45→21:11)
--- NOTE | 2025-05-03 10:25 | CRLHL7_ITS ---
For Patients: As a result of the Century Cures Act, medical imaging exams and procedure reports are released immediately into your electronic medical record. You may view this report before your referring provider. If you have questions, please contact your health care provider. INDICATION: Pancreatitis COMPARISON: 05/03/2025 CT, 05/02/2025 CT, 04/07/2025 CT, 03/04/2022 MRI TECHNIQUE: Multiplanar, multisequence MR imaging of the abdomen, without and with IV contrast. The MRCP protocol was utilized, which includes 3D reconstructed images of the biliary tree. Contrast: 15 mL [place] FINDINGS: Mild diffuse hepatic steatosis. Normal liver size. No cirrhosis. In the anterior left lobe of the liver there are 2 adjacent lesions. The larger measures 1.4 x 1.8 cm and the smaller measures 0.9 x 0.9 cm. Enhancement pattern is consistent with benign hemangiomas and these have not changed substantially since 2021. No specific further imaging follow-up is recommended. Patent hepatic vasculature. The gallbladder is normally distended. Normal wall thickness. Focal adenomyomatosis at the fundus on series 10, image 10. No substantial pericholecystic fluid. There are a couple of small gallstones that measure up to 5 millimeters. No intrahepatic biliary ductal dilatation. The extrahepatic bile duct measures 5 millimeters. No choledocholithiasis. Conventional pancreatico biliary junction anatomy. There is some very mild peripancreatic edema. Homogeneous enhancement of the pancreatic parenchyma. The pancreatic duct is mildly dilated and measures up to 5 millimeters. There is focal obscuration of the pancreatic duct at the pancreatic head but no discrete mass is identified (series 13, image 1). Along the anterior inferior pancreatic head there is a pancreatic lesion. It measures 6 x 6 mm. It is T2 hyperintense but not simple fluid density. No internal enhancement. This was previously much larger in 2021 when it measured 16 x 16 mm. This may be an involuting pseudo cyst or small side branch IPMN. No solid pancreatic mass. Normal spleen. Normal adrenal glands. Normal kidneys and upper collecting system. No ascites. No adenopathy. No dilated or inflamed bowel. IMPRESSION: 1. There is a 6 millimeter pancreatic head cystic lesion without enhancement. Previously much larger in 2021. May be an involuting pseudocyst or side branch IPMN. Recommend continued annual follow-up. 2. Distal pancreatic ductal dilatation with focal loss of the pancreatic duct in the pancreatic head without a discrete mass. A similar pattern was seen on the exam in 2021. Presumably a pancreatic duct stricture. 3. Mild acute interstitial edematous pancreatitis. 4. Cholelithiasis. No choledocholithiasis. No cholecystitis. Dictated by Kiana Scott MD @ 05/03/2025 12:56:46 PM (Electronically Signed)
--- NOTE | 2025-05-03 12:20 | P.ANES_ITS ---
Anesthesia Charges Start Date/Time Anesthesia Start Date: 05/03/25 Anesthesia Start Time: 12:20 Stop Date/Time Anesthesia Stop Date: 05/03/25 Anesthesia Stop Time: 12:41 Coding CPT Codes CPT Codes: ANES UPR GI NDSC PX NOS - 00175 ([id number]) P3 - PATIENT W/SEVERE SYS DISEASE, QK - DIETITIAN HELPER 2-4 CNCRNT ANES PROC, QX - FOREST FIREFIGHTER SVC W/ MD MED DIRECTION
--- NOTE | 2025-05-03 12:20 | W.ANESCHARGE ---
Anesthesia Charges Start Date/Time Anesthesia Start Date: 05/03/25 Anesthesia Start Time: 12:20 Stop Date/Time Anesthesia Stop Date: 05/03/25 Anesthesia Stop Time: 12:41 Coding CPT Codes CPT Codes: ANES UPR GI NDSC PX NOS - 82641 ([id number]) P3 - PATIENT W/SEVERE SYS DISEASE, QK - CALCIMINER 2-4 CNCRNT ANES PROC, QX - WOOL BUYER SVC W/ MD MED DIRECTION
--- NOTE | 2025-05-03 12:43 | P.ANES_ITS ---
Anesthesia Charges Start Date/Time Anesthesia Start Date: 05/03/25 Anesthesia Start Time: 12:20 Stop Date/Time Anesthesia Stop Date: 05/03/25 Anesthesia Stop Time: 12:41 Coding CPT Codes CPT Codes: ANES UPR GI NDSC PX NOS - 94692 ([id number]) P3 - PATIENT W/SEVERE SYS DISEASE, QX - POSTING CLERK SVC W/ MD MED DIRECTION, QK - TRUCK FARMER 2-4 CNCRNT ANES PROC
--- NOTE | 2025-05-03 12:43 | W.ANESCHARGE ---
Anesthesia Charges Start Date/Time Anesthesia Start Date: 05/03/25 Anesthesia Start Time: 12:20 Stop Date/Time Anesthesia Stop Date: 05/03/25 Anesthesia Stop Time: 12:41 Coding CPT Codes CPT Codes: ANES UPR GI NDSC PX NOS - 17573 ([id number]) P3 - PATIENT W/SEVERE SYS DISEASE, QX - ENGLISH HORN PLAYER SVC W/ MD MED DIRECTION, QK - MARKETING AND OUTREACH COORDINATOR 2-4 CNCRNT ANES PROC
[2025-05-03 15:31] LABS: Appearance Urine Clear (Clear)
--- NOTE | 2025-05-03 16:00 | PM.IMPN1 ---
Assessment and Plan Assessment and plan (1) Pancreatitis: Problem comment: -better visualized on the MR vs the CT -likely whiskey induced; possibly the ductal irregularities on MR can be addressed by GI as a cause of pancreatitis, sole or contributing. -General surgeon less worried about the gallbladder as etiology. Status: Acute (2) IPMN (intraductal papillary mucinous neoplasm): Problem comment: -will refer to GI (EUS/ERCP may be indicated) Status: Acute (3) Gastric ulcer: Problem comment: noted in the cardia to be healing this admission. HPylori neg by stool antigen on 04/12. biopsies pending today. Status: Acute (4) Alcohol abuse: Problem comment: Reports whisky drinking 3-4 whiskey drinks 2-4 times weekly. history of pancreatitis in the past. 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 Id and the patient settled on a month of doxycycline to cover for folliculitis is of the face as well as coverage for syphilis. Last day of doxycycline should be on or about May 05. Status: Acute (7) Smoking: Problem comment: Likely contributes to pancreatitis risk. Continues to smoke 1-1.5 packs daily. Status: Acute (8) Weight loss: Problem comment: -down 2.4 kg since discharge last month; delta is 5.2lbs. Status: Acute Subjective Date Seen: 05/03/25 Interval history: Daily Progress Note - Hospital Medicine Day #: 1 CC: abdominal pain 12 HOUR UPDATE: -increasing pain overnight -KUB, CT, MRCP, EGD completed today. -concern for a pancreatic duct abnormalities (cystic lesion that is getting smaller 2021 --> 2024) and distal duct stricture (again improving over the last three years); gastric ulcer (healing) on EGD. Previous HPylor is negative, new biopsies are pending. Notable Labs, Micro, Rads, Interventions: All his labs are improving. +ketones present on f/u UA. Stool for H pylori negative on 04/12/2025 Objective: looks tired. communicating well. Vitals: see above Lungs: Clear. Abdomen: soft. exam is benign - no tenderness to deep palpation. Cardiac: S1S2. Disposition/Potential discharge - 05/04 TBD - will need gastroenterology f/u Exam Const: Vital Signs, click to edit/add: Vital Signs - 24 hr 05/02/25 19:00 05/02/25 23:00 05/03/25 00:28 Temperature 98.1 F 98.2 F Pulse Rate [Pulse Oximeter] 82 90 90 Respiratory Rate 22 22 22 Blood Pressure [Ri ght Arm] 159/113 H 164/105 H Pulse Oximetry 9 L 96 Oxygen Delivery Me thod Room Air Room Air 05/03/25 02:42 05/03/25 07:00 05/03/25 07:00 Temperature 97.9 F Pulse Rate [Pulse Oximeter] 73 71 71 Respiratory Rate 16 16 16 Blood Pressure [Ri ght Arm] 122/77 117/78 Pulse Oximetry 99 100 Oxygen Delivery Me thod Room Air Room Air 05/03/25 11:00 Temperature 97.9 F Pulse Rate [Pulse Oximeter] 81 Respiratory Rate 16 Blood Pressure [Ri ght Arm] 133/80 Pulse Oximetry 99 Oxygen Delivery Me thod Room Air Labs Labs: Laboratory Results - last 24 hr 05/01/25 05/03/25 05/03/25 22:48 06:30 11:13 WBC 8.57 RBC 4.36 Hgb 13.7 Hct 40.3 MCV 92 MCH 31 MCHC 34 RDW Coeff of Waldemar 12.8 Plt Count 335 Neut % (Auto) 59.8 Lymph % (Auto) 27.4 [place] % (Auto) 7.7 Eos % (Auto) 4.8 Baso % (Auto) 0.1 Neut # (Auto) 5.12 Lymph # (Auto) 2.35 [place] # (Auto) 0.70 Eos # (Auto) 0.41 Baso # (Auto) 0.01 Abs Immat Gran (auto) 0.02 Imm/Tot Granulo (auto) 0.2 Sodium 132 L Potassium 4.1 Chloride 99 Carbon Dioxide 24 Anion Gap 9 BUN 5 L Creatinine 0.5 Estimated Creat Clear 142.28 Estimated GFR 121 Glucose 89 Calcium 8.8 Phosphorus 3.9 Total Bilirubin 0.5 Direct Bilirubin 0.2 AST 19 ALT 8 Alkaline Phosphatase 49 C-Reactive Protein 5.1 H Total Protein 6.3 Albumin 3.5 Lipase 187 Urine Color Yellow Urine Appearance Clear Urine pH 6.0 Ur Specific [place] 1.010 Urine Protein Negative Urine Glucose (UA) Negative Urine Ketones 2+ A Urine Blood Negative Urine Nitrite Negative Urine Bilirubin Negative Urine Urobilinogen 0.2 Ur Leukocyte Esterase Negative Urine RBC 0-2 Urine WBC 0-2 Ur Squamous Epith Cells None Urine Bacteria None Urine Opiates Screen Negative Ur Oxycodone Screen POSITIVE A Urine Methadone Screen Negative Ur Barbiturates Screen Negative U Tricyclic Antidepress Negative Ur Phencyclidine Scrn Negative Ur Amphetamines Screen Negative U Methamphetamines Scrn Negative U Benzodiazepines Scrn Negative Urine Cocaine Screen Negative U Marijuana (THC) Screen Negative
[2025-05-03] MEDS: SUCRALFATE 1 GM TABLET PO ×2 (17:37→21:10)
[2025-05-03] MEDS: LACTATED RINGERS 1000 ML 1,000 ML 125 ML IV (17:38)
--- NOTE | 2025-05-03 18:57 | PC.NURSE ---
End of shift: VSS, on RA tolerating a reg diet. denies N/V/SOB or pain. Patient did not ask for PRN pain meds throughout shift. Patient ambulating indep. to BR. Still awaiting stool sample. EGD completed this AM and 7mm ulcer found. see report.
[2025-05-03] MEDS: OMEPRAZOLE 20 MG CAPSULE DR 40 MG PO (21:10)
[2025-05-04] MEDS: ACETAMINOPHEN INJ 1,000 MG/100 ML VIAL 400 MG IVPB (03:12)
[2025-05-04] MEDS: LACTATED RINGERS 1000 ML 1,000 ML 125 ML IV (03:12)
[2025-05-04 03:16] VITALS: BP 147/93; PULSE 70; RESP 18; TEMP 36.8; O2SAT 100
[2025-05-04 06:34] LABS: Hematocrit* 41.2 % (37.0-53.0); Hemoglobin* 14.5 gm/dL (13.5-17.5); Mean Corpuscular HGB Conc 35 gm/dL (32-36); Mean Corpuscular Hemoglobin 33 pg (26-34); Mean Corpuscular Volume 92 fL (80-100); Red Blood Count* 4.46 m/uL (4.30-5.90); White Blood Count* 7.00 K/uL (4.50-11.00)
[2025-05-04 06:35] LABS: Slide Review Reflex No
[2025-05-04 06:46] LABS: Albumin* 3.5 g/dL (3.3-5.0); Chloride* 100 mmol/L (96-114)
[2025-05-04 06:47] LABS: Potassium* 4.0 mmol/L (3.6-5.1); Sodium* 136 mmol/L (135-149)
--- NOTE | 2025-05-04 06:48 | PC.NURSE ---
End of shift: Pt pleasant, alert and oriented. VSS. Pt stated pain was minimal and tolerable. Pt up independently and walking halls. Pt stated flatus though no BM. Tolerating regular diet. Denies nausea. Pt in bed, appears to be resting, call light within reach.?
[2025-05-04 06:49] LABS: Blood Urea Nitrogen* 4 mg/dL (7-30); Creatinine* 0.6 mg/dL (0.5-1.5); Est. Creatinine Clearance* 118.83; Estimated Glomerular Filt Rate 115 ml/min
[2025-05-04 06:50] LABS: Alanine Aminotransferase* 8 U/L (4-50); Alkaline Phosphatase* 49 U/L (40-150); Anion Gap 7 mEq/L (7-15); Aspartate Amino Transferase* 21 U/L (12-35); Bilirubin Total* 0.5 mg/dL (0.1-1.5); Calcium* 9.1 mg/dL (8.4-10.6); Carbon Dioxide* 29 mmol/L (20-32); Glucose* 93 mg/dL (60-115); Total Protein* 6.3 g/dL (6.0-8.3)
[2025-05-04 07:00] VITALS: BP 162/100; PULSE 69; RESP 18; TEMP 36.8; O2SAT 100
[2025-05-04] MEDS: SUCRALFATE 1 GM TABLET PO (08:34)
[2025-05-04] MEDS: MULTIVITAMIN/MINERALS 1 TABLET 1 TAB PO (08:34)
[2025-05-04] MEDS: THIAMINE 100 MG TABLET PO (08:35)
[2025-05-04] MEDS: OMEPRAZOLE 20 MG CAPSULE DR 40 MG PO (08:35)
[2025-05-04] MEDS: FOLIC ACID 1 MG TABLET PO (08:35)
--- NOTE | 2025-05-04 09:58 | W.PC.NUTR.NO ---
Nutrition Progress Note Progress Note Progress Note: RDN with diet education related to alcoholic pancreatitis. Patient admitted with abdominal pain, found to have alcoholic pancreatitis. He has a history of recurrent alcoholic pancreatitis and alcohol abuse. He reports drinking whiskey about 2 or more times per week. Current weight 29.693 kg (131 lbs); height 180.34 cm (5ft 11in); BMI 18.4 kg.m2. He reports his weight has been stable recently without significant changes. He tolerated a Regular diet for dinner 05/03/25. RDN offered diet education related to pancreatitis. Patient agreed to receive diet education related to pancreatitis. Patient was provided diet education on a low fat diet. Discussed foods to include and foods to avoid. Education also provided following a low fat diet (about 60 grams/day) long-term. Also highly recommended he limit alcohol use to very little or none at all. Verbal and written information as well as a sample menu provided from [facility]. Patient verbalized understanding. RDN's contact information was provided and patient was encouraged to contact RDN with questions.
--- NOTE | 2025-05-04 12:21 | PM.DS1 ---
DS: Providers Provider Date Seen: 05/04/25 Date of admission: 05/02/25 02:14 Primary care physician: Elizabeth Lynne MD Admitting Clinician: Fernando Mast MD Attending Physician on discharge: Sydney Burris MD [facility] Date of Discharge: 05/04/25 DS: Diagnosis Discharge Diagnosis (1) Pancreatitis: Status: Acute Problem details: -better visualized on the MR vs the CT -likely whiskey induced; possibly the ductal irregularities on MR can be addressed by GI as a cause of pancreatitis, sole or contributing. -General surgeon less worried about the gallbladder as etiology. (2) IPMN (intraductal papillary mucinous neoplasm): Status: Acute Problem details: -will refer to GI (EUS/ERCP may be indicated) (3) Gastric ulcer: Status: Acute Problem details: noted in the cardia to be healing this admission. HPylori neg by stool antigen on 04/12. biopsies pending today. (4) Alcohol abuse: Status: Acute Problem details: Reports whisky drinking 3-4 whiskey drinks 2-4 times weekly. history of pancreatitis in the past. (5) Hypertension: Status: Acute Problem details: -starting lisinopril 10mg 05/02/25 (6) Weight loss: Status: Acute Problem details: -down 2.4 kg since discharge last month; delta is 5.2lbs. (7) Smoking: Status: Acute Problem details: Likely contributes to pancreatitis risk. Continues to smoke 1-1.5 packs daily. DS: Summary Hospital Course Hospital Course: QUESTIONS TO ASK AT FOLLOW-UP: 1. How's sobriety going? Are you using any resources. 2. HOw is your digestion/pain? 3. Have you recieved confirmation regarding an appt with [facility] or will your pcp refer you to [facility]. BRIEF HOSPITAL COURSE: Patient was admitted for 3 days. Synopsis of acute inpatient issues are outlined above. Chronic medical conditions with notable findings outlined above. Pt has acute intersitial pancreatitis likely due to alcohol intake. He also has a cystic lesion in his pancreas that by MRI shows a ductal narrowing. He had an undulating course. Initially he received IV opioids and was barely taking p.o. NS his hospitalization wore on he had a brief period of time where he felt pretty good and then 2 nights before discharge she was back to Q to our Dilaudid. That is when we pursued abdominal ultrasound, MRCP. Our general surgery team did not feel like his pancreatitis was caused from any gallbladder pathology. The MRCP showed the ductal constriction. We still feels like this is alcoholic pancreatitis but the ductal changes are likely prolonging symptoms and or exacerbating the course. We have offered him resources and instructed him on lifetime sobriety. He has a follow-up with his PCP as well as [facility]. All of his images have been pushed to both the [employer] system and the [facility] system. DISCHARGE MEDICATIONS: See Reconciled list - SIGNIFICANT CHANGES: Lisinopril 10mg Omeprazole 20mg twice daily. Specific instructions to the patient and follow-up are outlined below. REVIEW OF SYSTEMS No new chest pain or dyspnea Pain controlled No voiding difficulties Tolerating diet challenge PHYSICAL EXAM: CONSTITUTIONAL: Conversive, good historian. A/O. Knows setting and context. GENERAL: Well-developed and above ideal body weight, in no respiratory distress. VITAL SIGNS: see record. HEENT: Sclerae are anicteric. No petechiae. CARDIAC: rhythm is regular. There is no S3 or rub. No harsh murmurs. Extremities show trace edema with symmetrical pulses. PULM: good air entry with no wheeze. ABDOMEN: soft. no guarding. NEURO: Speech is fluent. A brief neurologic exam is negative. SKIN: No rashes, petechiae, concerning changes PSYCHIATRIC: Euthymic. DISPOSITION: home/self care. Time spent on discharge 37 minutes. Time spent discussing smoking cessation with patient: more than 10 minutes Status at Discharge Functional status at discharge: independent ambulation Overall status at discharge: patient is progressing back to baseline Time Spent with Patient Time attestation: Total time spent providing and/or coordinating discharge services: Time spent: Greater than 30 minutes Exam Const: Vital Signs, click to edit/add: Vital Signs - 24 hr 05/03/25 15:00 05/03/25 15:00 05/03/25 19:15 Temperature 97.6 F 97.7 F Pulse Rate [Pulse Oximeter] 90 90 71 Respiratory Rate 16 16 16 Blood Pressure [Ri ght Arm] 125/36 L 112/74 Pulse Oximetry 98 99 Oxygen Delivery Me thod Room Air Room Air 05/03/25 23:00 05/03/25 23:00 05/04/25 03:16 Temperature 98.3 F 98.3 F Pulse Rate [Pulse Oximeter] 72 72 70 Respiratory Rate 16 16 18 Blood Pressure [Ri ght Arm] 118/69 147/93 H Pulse Oximetry 96 100 Oxygen Delivery Me thod Room Air Room Air 05/04/25 07:00 05/04/25 07:00 Temperature 98.3 F Pulse Rate [Pulse Oximeter] 69 69 Respiratory Rate 18 18 Blood Pressure [Ri ght Arm] 162/100 H Pulse Oximetry 100 Oxygen Delivery Me thod Room Air DS: Data Data Completed and Pending Labs on day of discharge: Labs from last 24 hours 05/04/25 05/03/25 06:11 11:13 WBC 7.00 RBC 4.46 Hgb 14.5 Hct 41.2 MCV 92 MCH 33 MCHC 35 Plt Count 326 Sodium 136 Potassium 4.0 Chloride 100 Carbon Dioxide 29 Anion Gap 7 BUN 4 L Creatinine 0.6 Estimated Creat Clear 118.83 Estimated GFR 115 Glucose 93 Calcium 9.1 Total Bilirubin 0.5 AST 21 ALT 8 Alkaline Phosphatase 49 C-Reactive Protein 3.5 H Total Protein 6.3 Albumin 3.5 Lipase 125 Urine Color Yellow Urine Appearance Clear Urine pH 6.0 Ur Specific [place] 1.010 Urine Protein Negative Urine Glucose (UA) Negative Urine Ketones 2+ A Urine Blood Negative Urine Nitrite Negative Urine Bilirubin Negative Urine Urobilinogen 0.2 Ur Leukocyte Esterase Negative Urine RBC 0-2 Urine WBC 0-2 Ur Squamous Epith Cells None Urine Bacteria None Discharge Plan Discharge Disposition: Home, Self-Care Date of Admission: 05/02/25 02:14 Attending Provider on Discharge: Sydney Burris Primary Care Provider: Elizabeth Lynne Condition: Improved Anticipated Discharge Date/Time: 05/04/25 12:13 Discharge Medications: New lisinopril 10 mg Tablet 10 mg PO DAILY Qty: 30 0RF Continued omeprazole 40 mg capsule,delayed release(DR/EC) 40 mg PO BID Qty: 60 2RF Discharge Orders: Discharge Order (Routine); Ordered 05/04/25 Ordered By: Sydney Burris Additional Instructions: -lifetime sobriety is needed. No alcohol is safe for you/your body. Naltrexone, treatment (inpatient) are all reasonable options. -You have a healing ulcer; continue the omeprazole twice a day for another month. -You have a cyst at one of the ducts of your pancreas - this is worsening your underlying alcoholic pancreatitis. -I have sent a referral to [facility], you likely need an endoscopic ultrasound and stent for the pancreas. The providers at [facility] will direct this care. Activity Level: Activity as Tolerated Discharge Diet: Regular Follow Up Appointments: [facility] [Outside] Referral Note: next available, with any available provider; hx of pancreatitis with stricture of duct. Needs EUS. Elizabeth Lynne MD [Primary Care Provider, Family Practice] Referral Note: 1-2 weeks; hospital f/u Forms: [facility] Info Instructions
--- NOTE | 2025-05-04 15:26 | PC.NURSE ---
Discharge: patient alert and oriented x4. tolerating a reg diet. denies N/V/SOB or pain. ambulating hallways and to BR. Patient's VSS on RA and afebrile this shift. Discharged today at 1400 accompanied by family to home. Patients belongings sheet signed. Discharge instructions given and signed. Patient verbalized understanding of instructions. IV removed tip intact.
== END 2025-05-04 14:00 | disposition home or self-care (01) | DRG 282 ==
LOC: ED 05-02 00:36 → MEDSURG 05-02 02:17
PROVIDERS: Family Medicine; Admitting Provider Internal Medicine; Emergency Provider Family Medicine; PCP Family Medicine; Visit Provider Internal Medicine
DX: K85.20 Alcohol induced acute pancreatitis without necrosis or infection (principal); K25.3 Acute gastric ulcer without hemorrhage or perforation; D37.8 Neoplasm of uncertain behavior of other specified digestive organs; F10.288 Alcohol dependence with other alcohol-induced disorder; E87.1 Hypo-osmolality and hyponatremia; D17.5 Benign lipomatous neoplasm of intra-abdominal organs; R63.4 Abnormal weight loss; Z68.1 Body mass index [BMI] 19.9 or less, adult; I10 Essential (primary) hypertension; G47.33 Obstructive sleep apnea (adult) (pediatric); K80.20 Calculus of gallbladder without cholecystitis without obstruction; K44.9 Diaphragmatic hernia without obstruction or gangrene; F17.210 Nicotine dependence, cigarettes, uncomplicated; E78.00 Pure hypercholesterolemia, unspecified; Z86.73 Personal history of transient ischemic attack (TIA), and cerebral infarction without residual deficits
CPT/HCPCS: 00731; 36415; 43239; 74018; 74177; 74183; 76705; 80048; 80053; 80069; 80076; 80306; 81001; 82077; 82270; 83605; 83690; 85025; 85027; 85610; 86140; 87086; 87338; 99285; A9153; A9270; A9575; J0131; J0360; J1171; J2270; J2470; J2560; J2704; J3010; J7030; J7120; Q9967

== ENCOUNTER 2025-05-08 18:34 | Emergency (ER) | payer BC, SELFPAY ==
[2025-05-08] VITALS (11 sets, daily range): BP systolic 138–171; BP diastolic 81–108; PULSE 66–84; RESP 16–18; TEMP 36.6–37; O2SAT 95–100; BMI 19.6
--- NOTE | 2025-05-08 18:59 | ED.GENADULT ---
HPI - General Adult General Date Seen: 05/08/25 Chief complaint: Abdominal Pain Stated complaint: Abd Pain Time Seen by Provider: 05/08/25 18:46 History of Present Illness HPI narrative: 52-year-old gentleman who presents to the ER today with abdominal pain mostly upper but throughout his anterior abdomen radiating through to his mid back similar to his previous bouts pancreatitis. He says he has been dealing with pancreatitis multiple times over the past 4 or 5 years. It sounds like it might have initially been triggered by alcohol. He had just been in the hospital and discharged on Friday for another bout of pancreatitis. He has been totally absent from alcohol for the past 10-14 days. He is not sure what brought his pancreatitis packed this time. He says he had been doing pretty well on Friday evening and . Beginning on Friday evening he started having recurrent pain similar to his pancreatitis. He has had a lot of nausea but not vomiting. Not able to take his food. Drinking small sips of water. He tried taking some oral oxycodone but it was not helpful for his pain. Per medical record he was hospitalized in the end of March and has a discharge from her for 04/08. Per that discharge summary he has acute on chronic abdominal pain over the past several weeks leading up to hospitalization. CT scan had showed gastric ulceration. CT 04/07/2025 shows a rim enhancing exophytic projection within the gastric antrum/1st portion of the duodenum measuring 2.5 x 1.2 x 2.9 cm. Also he had a pancreatic mass or lesion on CT. Consult with GI, Dr. Bryce de la cruz. They recommend further imaging, EGD a tertiary hospital. Patient apparently declined transfer during that admission. He needed to be managed in [place] and discharge so ago to a family wedding. So he was sent home on high-dose PPI 40 mg b.i.d. as well as Carafate. CT chest/abdomen/pelvis 04/07/2025 IMPRESSION: 1. Compared to CT abdomen and pelvis dated March 02, 2022, previously seen mucosal hyperenhancement and wall thickening of the gastric antrum has decreased; however, there is a rim enhancing exophytic projection within the gastric antrum/1st portion of the duodenum measuring 2.5 x 1.2 x 2.9 cm. No fat stranding or perforation. Findings are suspicious for a gastric ulcer. Recommend GI consultation. 2. Compared to CT dated March 04, 2022, heterogeneous lesion in the pancreatic head has decreased in size. Findings are favored to reflect a side branch IPMN or nearly resolved pseudocyst given history of prior pancreatitis. Stable mild prominence of the pancreatic duct measuring up to 0.4 cm. 3. Cholelithiasis without acute cholecystitis. No biliary ductal dilatation. 4. No acute pathology in the chest. Mild emphysema. Mild to moderate three-vessel coronary calcification. He presented back to the [place] ER on May 01 and was readmitted until May 04. Per discharge summary 05/04 he did have a recurrence of pancreatitis. Thought to be induced by whiskey consumption, but possibly related to a pancreatic head lesion. MRI of his pancreas apparently showed ductal narrowing.. MRI pancreas 05/03/2025 IMPRESSION: 1. There is a 6 millimeter pancreatic head cystic lesion without enhancement. Previously much larger in 2021. May be an involuting pseudocyst or side branch IPMN. Recommend continued annual follow-up. 2. Distal pancreatic ductal dilatation with focal loss of the pancreatic duct in the pancreatic head without a discrete mass. A similar pattern was seen on the exam in 2021. Presumably a pancreatic duct stricture. 3. Mild acute interstitial edematous pancreatitis. 4. Cholelithiasis. No choledocholithiasis. No cholecystitis. He was discharged on Friday. He was planning to follow-up with [facility] gastroenterology this . However recurrence of pain let him back to the ER today. Related Data Previous Rx's ?Medication ?Instructions ?Recorded omeprazole 40 mg capsule,delayed 40 mg PO BID #60 caps 04/08/25 release lisinopril 10 mg tablet 10 mg PO DAILY #30 tabs 05/04/25 Allergies Allergy/AdvReac Type Severity Reaction Status Date / Time No Known Drug Allergies Allergy Verified 05/02/25 00:31 [facility] Medical History (Updated 05/08/25 @ 20:41 by Guy Kaufman MD) Pancreatitis ?K85.90 - Acute pancreatitis without necrosis or infection, unspecified (ICD-10) History of amaurosis fugax ?Z86.69 - Personal history of other diseases of the nervous system and sense organs (ICD-10) IPMN (intraductal papillary mucinous neoplasm) ?D49.0 - Neoplasm of unspecified behavior of digestive system (ICD-10) Weight loss ?R63.4 - Abnormal weight loss (ICD-10) Acute pancreatitis ?K85.90 - Acute pancreatitis without necrosis or infection, unspecified (ICD-10) Stroke ?I63.9 - Cerebral infarction, unspecified (ICD-10) Obstructive sleep apnea ?G47.33 - Obstructive sleep apnea (adult) (pediatric) (ICD-10) Cholelithiasis ?K80.20 - Calculus of gallbladder without cholecystitis without obstruction (ICD-10) Smoking ?F17.200 - Nicotine dependence, unspecified, uncomplicated (ICD-10) Alcohol abuse ?F10.10 - Alcohol abuse, uncomplicated (ICD-10) Hypercholesteremia ?E78.00 - Pure hypercholesterolemia, unspecified (ICD-10) Surgical History History of carotid endarterectomy ?Z98.890 - Other specified postprocedural states (ICD-10) Social History What is your current living situation?: I presently have a place to live Problems where you live: no known problems In the past 12 months, utilities in danger of being shut off: no In past 12 months, lack of transportation kept you from medical appts, meetings, work, or getting things needed for daily living: no In the past 12 mos, have been you worried that your food would run out before you had money to buy more?: never true In the past 12 mos, the food you bought just didn't last and you didn't have money to buy more?: never true Smoking Status: Current every day smoker What tobacco products do you use: cigarettes Smoking packs per day: 1.5 Smoking cigarettes per day: 30.0 Years smoked: 35 Smoking pack-years: 52.50 Do you use any of these nicotine containing products: Vaping Products Nicotine containing products detail: has tried vaping does not care for it Second hand tobacco smoke exposure: Yes How often do you have a drink containing alcohol: 2-3 times a week Alcohol type: hard liquor How many standard drinks containing alcohol do you have on a typical day: 3 or 4 How often do you have six or more drinks on one occasion: Monthly AUDIT-C Alcohol total score: 6 Non-prescribed substance use: denies use Caffeine: No How often does anyone, including family, friends and others, physically hurt you: never How often does anyone, including family, friends and others, insult or talk down to you: never How often does anyone, including family, friends and others, threaten you with harm: never How often does anyone, including family, friends and others, scream or curse at you: never service: No Exam Narrative: Exam Narrative: Constitutional: Appears well-developed and well-nourished. Alert. Uncomfortable. He is given short answers to question but is difficult for him to provide good history because he is very uncomfortable HENT: Head: Atraumatic. Nose: Nose normal. Mouth/Throat: Oral mucosa is clear and moist. no trismus. Pharynx normal. Tonsils symmetric. No tonsillar enlargement, erythema, or exudate. Eyes: Conjunctivae normal. EOM normal. Pupils equal, round, and reactive to light. No scleral icterus. Neck: Normal range of motion. Neck supple. No tracheal deviation present. Cardiovascular: Normal rate, regular rhythm. No gallop. No friction rub. No murmur heard. Pulmonary/Chest: Effort normal. No stridor. No respiratory distress. No wheezes. No rales. No rhonchi . No chest tenderness. Abdominal: Soft. Bowel sounds normal. No distension. No mass. Diffuse tenderness. No rebound. No guarding. Musculoskeletal: RUE: Normal range of motion. No tenderness. No deformity LUE: Normal range of motion. No tenderness. No deformity RLE: Normal range of motion. No edema. No tenderness. No deformity LLE: Normal range of motion. No edema. No tenderness. No deformity Neurological: Alert and oriented to person, place, and time. Normal strength. CN II-VII intact. No sensory deficit. GCS eye subscore is 4. GCS verbal subscore is 5. GCS motor subscore is 6. Normal coordination Skin: Skin is warm and dry. No rash noted. No pallor. Normal capillary refill. Psychiatric: Normal mood. Complete exam Limited by pain. Const: Vital Signs, click to edit/add: Vital Signs - 24 hr 05/08/25 18:50 05/08/25 19:11 05/08/25 19:15 Temperature 97.8 F Pulse Rate 76 Pulse Rate [Pulse Oximeter] 84 Respiratory Rate 16 18 Blood Pressure 150/103 H Blood Pressure [Ri ght Upper Arm] 138/81 Pulse Oximetry 97 99 97 Oxygen Delivery Me thod Room Air Course Vital Signs Vital signs: Initial Vital Signs Temperature 97.8 F 05/08/25 18:50 Temperature Source Temporal Artery Scan 05/08/25 18:50 Pulse Rate 84 05/08/25 18:50 Pulse Rhythm Regular 05/08/25 18:50 Respiratory Rate 16 05/08/25 18:50 Blood Pressure 138/81 05/08/25 18:50 Blood Pressure Mean 100 05/08/25 18:50 Blood Pressure Position Sitting 05/08/25 18:50 Pulse Oximetry 97 05/08/25 18:50 Oxygen Delivery Method Room Air 05/08/25 18:50 Vital Signs Temperature 97.8 F 05/08/25 18:50 Pulse Rate 84 05/08/25 18:50 Respiratory Rate 16 05/08/25 18:50 Blood Pressure 138/81 05/08/25 18:50 Pulse Oximetry 97 05/08/25 18:50 Oxygen Delivery Method Room Air 05/08/25 18:50 Temperature 97.8 F 05/08/25 18:50 Pulse Rate 76 05/08/25 19:11 Respiratory Rate 18 05/08/25 19:11 Blood Pressure 150/103 H 05/08/25 19:11 Pulse Oximetry 97 05/08/25 19:15 Oxygen Delivery Method Room Air 05/08/25 18:50 Medications Administered Medications: Generic Name Dose Route Start Last Admin Trade Name Freq PRN Reason Stop Dose Admin Hydromorphone HCl 0.5 mg 05/08/25 18:58 05/08/25 20:31 Hydromorphone 0.5 Mg/0.5 Ml Inj IVP 0.5 mg Q1H PRN Administration Pain Hydromorphone HCl 1 mg 05/08/25 20:44 05/08/25 20:49 Hydromorphone 0.5 Mg/0.5 Ml Inj IVP 05/08/25 20:45 1 mg ONCE ONE Administration Discontinued Medications Generic Name Dose Route Start Last Admin Trade Name Freq PRN Reason Stop Dose Admin Sodium Chloride 1,000 mls @ 1,000 mls/hr 05/08/25 19:00 05/08/25 20:14 0.9 % Sodium Chloride 1000 Ml IV 05/08/25 19:59 Infused .Q1H LORENE Infusion Ondansetron HCl 4 mg 05/08/25 19:00 05/08/25 19:04 Ondansetron 2 Mg/Ml Inj IVP 05/08/25 19:01 4 mg ONCE ONE Administration Medical Decision Making MDM Narrative Medical decision making narrative: Pleasant 54-year-old gentleman with a history of recurrent bouts of pancreatitis, also recent diagnosis of gastric ulcer based on CT finding in March presenting to the ER today with concern for generalized abdominal pain radiating through to his back that is similar to his previous bouts of pancreatitis. He was just discharged from the hospital on Friday (4 days prior to arrival and started redeveloping symptoms on Friday evening (2 days prior to arrival. He has not been able to control his pain with oral oxycodone home so he came back to the ER tonight. Laboratory workup shows normal white count. Platelet count is 473 and I suspect this is an acute phase reactant. It is increased compared to his recent hospitalization and similar to labs from late March. Sodium mildly low at 133 (similar to his recent hospitalization). BUN is normal. Creatinine normal. LFTs are normal except for AST of 36. Total bili is 0.9. Alk-phos is 58. Venous lactic is normal. Lipase is elevated (higher than 4000, but lab is currently out of reagents further dilute his serum to rerun the test to confirm how much higher). Alcohol level is undetectable in this correlates with the patient's report of being completely abstinent from alcohol for the past 10 days. Cause of this pancreatitis is unclear. Concern would be potential worsening of his pancreatic stricture that had been noted on the MR on 05/03. We discussed that we could get a CT scan here to double check his pancreatic head lesion and look for development of pseudocyst but patient is refusing CT scan. He is concerned that he has had 3 CTs in the past month and is worried about radiation risk. At this point using shared decision-making we decided to hold off on CT. He is requiring serial doses of Dilaudid for pain control here in the ER. We discussed disposition. He had come to the ER hoping for a little bit of pain leaves and then discharge home. However his pain is more persistent and troublesome that he was planning. We agree that discharge home is not a good idea because he is highly likely to have severe uncontrolled pain tonight and rebound back to the hospital. We discussed that hospitalization is indicated. We discussed that we could admit him here in [place] for pain control and hydration. However it is unclear why his pancreatitis is recurring so often. We do not have GI capability to evaluate his pancreatic duct stricture that was noted on the MR imaging during his last hospitalization. Ultimately he does agree that transfer is indicated. After a fairly protracted discussion, patient would prefer to transfer back to the [facility]. ransfer to a different [facility]. Discussed with Dr. Perez, at [facility] at about 9:15 p.m.. She accepts this patient in transfer. Discussed with the patient and his mother. They are agreeable to transfer to [place]. They do not want transfer by EMS. Patient will go by private car with his mother and father driving him to [facility] Lab Data Labs: Lab Results 05/08/25 Range/Units 18:57 WBC 9.90 (4.50-11.00) K/uL RBC 5.04 (4.30-5.90) m/uL Hgb 16.1 (13.5-17.5) gm/dL Hct 47.3 (37.0-53.0) % MCV 94 (80-100) fL MCH 32 (26-34) pg MCHC 34 (32-36) gm/dL RDW Coeff of Waldemar 13.4 (11.5-15.5) % Plt Count 473 H (140-440) K/uL Neut % (Auto) 65.6 (42.0-72.0) % Lymph % (Auto) 24.5 (20-44) % [place] % (Auto) 6.5 (0.0-11.0) % Eos % (Auto) 3.0 (0.0-7.0) % Baso % (Auto) 0.3 (0.0-3.0) % Neut # (Auto) 6.49 (1.7-7.0) K/uL Lymph # (Auto) 2.43 (0.90-2.90) K/uL [place] # (Auto) 0.60 (0.00-0.90) K/UL Eos # (Auto) 0.30 (0.00-0.50) K/uL Baso # (Auto) 0.03 (0.00-0.30) K/uL Abs Immat Gran (auto) 0.01 (0.00-0.30) K/uL Imm/Tot Granulo (auto) 0.1 % Sodium 133 L (135-149) mmol/L Potassium 4.2 (3.6-5.1) mmol/L Chloride 97 (96-114) mmol/L Carbon Dioxide 26 (20-32) mmol/L Anion Gap 10 (7-15) mEq/L BUN 17 (7-30) mg/dL Creatinine 0.7 (0.5-1.5) mg/dL Estimated Creat Clear 99.84 Estimated GFR 110 ml/min Glucose 121 H (60-115) mg/dL Lactate 1.3 (0.5-1.9) mmol/L Calcium 9.7 (8.4-10.6) mg/dL Total Bilirubin 0.9 (0.1-1.5) mg/dL AST 36 H (12-35) U/L ALT 22 (4-50) U/L Alkaline Phosphatase 58 (40-150) U/L Total Protein 8.5 H (6.0-8.3) g/dL Albumin 4.7 (3.3-5.0) g/dL Ethyl Alcohol < 0.01 (0.01-0.03) % ECG Data Attestation: I personally reviewed and interpreted this ECG as follows: Interpretation: Normal sinus rhythm Rate 81 ME interval 134 Normal QRS axis. No ST segment elevation or depression QTC 390, QTC 453 Discharge Plan Discharge Clinical Impression: Pancreatitis, Pancreatic duct stricture Patient Disposition: Xfer [place] Prescriptions: No Action lisinopril 10 mg Tablet 10 mg PO DAILY Qty: 30 0RF omeprazole 40 mg capsule,delayed release(DR/EC) 40 mg PO BID Qty: 60 2RF Stand Alone Forms: [employer] Info Instructions
[2025-05-08] MEDS: ONDANSETRON 2 MG/ML inj 4 MG IVP (19:04)
[2025-05-08 19:08] LABS: Hematocrit* 47.3 % (37.0-53.0); Hemoglobin* 16.1 gm/dL (13.5-17.5); Immature Granulocytes Abs Auto 0.01 K/uL (0.00-0.30); Immature Granulocytes Pct Auto 0.1 %; Lymphocytes Absolute Auto 2.43 K/uL (0.90-2.90); Mean Corpuscular HGB Conc 34 gm/dL (32-36); Mean Corpuscular Hemoglobin 32 pg (26-34); Mean Corpuscular Volume 94 fL (80-100); RDW Coefficient of Variation % 13.4 % (11.5-15.5); Red Blood Count* 5.04 m/uL (4.30-5.90); White Blood Count* 9.90 K/uL (4.50-11.00)
[2025-05-08 19:10] LABS: Lactate* 1.3 mmol/L (0.5-1.9)
--- OUTSIDE RECORDS SUMMARY | 2025-05-08 19:28 | XMS_ITS | Clinical Summary ---
Author Organization [employer] [facility] [facility] Address [address] [place] [id number] Care Team Providers Care Shirt Sewer Name Role Phone Klarissa Manning NP Unavailable [phone] Klarissa Manning NP Primary Care Provider [phone] Allergies No known active allergies Medications varenicline [...] mouth once daily with a meal. Active doxycycline 100 mg tabletIndicatio ns:Facial rash Take 2 tablets (200mg) by mouth daily as needed. Take within 72 hours and ideally within 24 hours of unprotected sexual activity. Do no take more than 2 tablets in 24 hours. 60 Tablet 5 Active Doxycycline Hyclate 100 mg TbECIndications :Folliculitis Take 100 mg by mouth two times daily. 60 Tablet 5 05/05/20 25 Encounters Date Type Department Care Team Description 05/04/2025 Lab Requisition [facility] [phone] Coral Dao MD 04/05/2025 1:20 PM CDT Telemedicine [facility] [address] [place] [address] Kaveh Cole MD 04/05/2025 Telephone [facility] [address] [place] [address] Kaveh Cole MD Medication Management (Doxycycline Hyclate 100 mg TbEC/) 04/05/2025 Telephone [facility] [address] [place] [address] Kaveh Cole MD Medication Management (Doxycycline Hyclate 100 mg TbEC ) 04/04/2025 Travel from Last 3 Months Social History Tobacco Use Types Packs/Day Years Used Date Smoking Tobacco: Every Day Cigarettes Tobacco Cessation:Ready to Q uit: No; Counseling Given: No Sex and Gender Information Value Date Recorded Sex Assigned at Not on file Legal Sex Male 5:27 AM [employer] Gender Identity Not on file Sexual Orientation [...] age 50+ (1 of 2 - PCV) 990 Colonoscopy through age 75 2015 Lipids for age 45-75 2015 Zoster (shingles) series for age 50+ (1 of 2) 09/06/19 Influenza Vaccine (#1) 2025 RSV vaccine for adults or pr egnancy (1 - 1-dose 75+ series) 2045 HIV for age 15-65 Completed 10/12/2024 Procedures Procedure Name Priority Date/Time Associated Diagnosis Comments LAB TRACKING EVENT Routine 05/03/2025 12 :26 PM CDT PATH TISSUE EXAM Routine 05/03/2025 12:2 6 PM CDT ANTI HIV 1/2 Routine 10/12/2024 2:20 PM CDT Exposure to syphilis from Last 3 Months or Most Recently Relevant to Health Maintenance Results * LAB TRACKING EVENT (05/03/2025 12:26 PM CDT) Other (Other) Client Collect / Unknown 05/03/2025 12:26 PM CDT 05/04/2025 6:24 AM CDT us Coral Dao MD LAB BILL ONLY Final Re sult [email or web address] [facility] [address] [place] [address], * PATH TISSUE EXAM (05/03/2025 12:26 PM CDT) Case Report Pathology Report Case: [id number] Authorizing Provider: Coral Dao MD Collected: 05/03/2025 1226 Ordering Location: [facility] Received: 05/04/2025 1207 Pathologist: Magali Arce MD Specimens: A) - Duodenum Biopsy B) - Stomach Biopsy, Stomach Ulcer Biopsy C) - Stomach Biopsy 05/05/2025 12:07 PM CDT [facility] Final Diagnosis A) DUODENUM, BIOPSY: 1. Normal duodenal mucosa 2. Negative for celiac disease and other enteropathy B) STOMACH, ULCER, BIOPSY: 1. Normal gastric body mucosa 2. Negative for Helicobacter C) STOMACH, BIOPSY: 1. Reactive gastropathy, endoscopically ulcerative (see comment) a. Sampling: Antral and body mucosae b. Distribution: Antral mucosa 2. Negative for chronic inflammation, atrophy and Helicobacter 05/05/2025 12:07 PM CDT [facility] at 1207 CDT Comment C) The likely etiology is an ongoing non-inflammatory type mucosal injury due to a chemical type of injury; this may be due to ingestion of non-steroidal anti-inflammatory drugs, aspirin (via prostaglandin-med iated injury), excess alcohol, corticosteroids, or bile/alkaline reflux, the latter usually in the setting of a gastroenteric anastomosis. 05/05/2025 12:07 PM CDT [facility] Clinical Information Mr. Morillo is a 54 year-old with abdominal pain. Upper GI endoscopy showed gastric ulcer. 05/05/2025 12:07 PM CDT [facility] Gross Description A) Received in formalin are 5 adams mucosal fragments ranging from 2 mm to 4 mm in greatest dimension, which are entirely submitted in one cassette. It is labeled with the patient's name and designated duodenum, first portion mass. B) Received in formalin are 3 adams mucosal fragments ranging from 4 mm to 5 mm in greatest dimension, which are entirely submitted in one cassette. It is labeled with the patient's name and designated stomach, ulcer. C) Received in formalin are 5 adams mucosal fragments ranging from 2 mm to 5 mm in greatest dimension, which are entirely submitted in one cassette. It is labeled with the patient's name and designated stomach, random biopsy. Keya Flores 05/04/2025 12:20 PM 05/05/2025 12:07 PM CDT [facility] Microscopic Description The final diagnosis is based on microscopic examination of appropriate sections of all specimens. 05/05/2025 12:07 PM CDT [facility] Additional Information Interpreted at [facility] [employer], Central Laboratory - [address], [place] [address] 05/05/2025 12:07 PM CDT [facility] Other (Duodenum Biopsy) 05/03/2025 12:26 PM CDT 05/04/2025 12:07 PM CDT Specimen (specimen) (Stomach Biopsy) 05/03/2025 12:26 PM CDT 05/04/2025 12:07 PM CDT Specimen (specimen) (Stomach Biopsy) 05/03/2025 12:26 PM CDT 05/04/2025 12:07 PM CDT Coral Dao MD PATHOLOGY/CYTOLOGY Final Result [facility] [address] [place] [address], [place] * ANTI HIV 1/2 (10/12/2024 2:20 PM CDT) HIV AG/AB, 4TH GEN NON-REACT SHERRIE NON-REACT SHERRIE [facility] [place] Comment: HIV-1 antigen and HIV-1/HIV-2 antibodies were [...] purpose. For additional information please refer to http://education.[employer]/faq/MQL402 (This link is being provided for informational/ educational purposes only.) The performance of this assay has not been clinically validated in patients less than 2 years old. Blood BLOOD SPECIMEN / Unknown 10/12/2024 2:20 PM CDT 10/12/2024 2:23 PM CDT Narrative [facility] - 10/13/2024 12:36 PM CDT FASTING:NO FASTING: NO Kaveh Cole MD SEND OUTS Final Result [employer] [facility] [address] [place] [address], [place] [phone] [facility] [address] [place] [address] from Last 3 Months or Most Recently Relevant to Health Maintenance Insurance [facility] Advance Directives * Full Code (Latest Code Status on File) Date Activated Date Inactivated Comments 01/23/2017 9:13 AM 01/23/2017 2:26 PM Care Teams Shirt Sewer Relationship Specialty Start Date End Date Klarissa Manning NP [address] [place] [address] [place] [address] PCP - General Nurse Practitioner 10/12/24 Klarissa Manning NP Nurse Practitioner 03/07/14
[2025-05-08 19:34] LABS: Albumin* 4.7 g/dL (3.3-5.0); Chloride* 97 mmol/L (96-114)
[2025-05-08 19:35] LABS: Potassium* 4.2 mmol/L (3.6-5.1); Sodium* 133 mmol/L (135-149)
[2025-05-08 19:37] LABS: Alanine Aminotransferase* 22 U/L (4-50); Alkaline Phosphatase* 58 U/L (40-150); Anion Gap 10 mEq/L (7-15); Aspartate Amino Transferase* 36 U/L (12-35); Bilirubin Total* 0.9 mg/dL (0.1-1.5); Blood Urea Nitrogen* 17 mg/dL (7-30); Carbon Dioxide* 26 mmol/L (20-32); Creatinine* 0.7 mg/dL (0.5-1.5); Est. Creatinine Clearance* 99.84; Estimated Glomerular Filt Rate 110 ml/min; Total Protein* 8.5 g/dL (6.0-8.3)
[2025-05-08 19:38] LABS: Calcium* 9.7 mg/dL (8.4-10.6); Glucose* 121 mg/dL (60-115)
[2025-05-08 19:43] LABS: Ethanol* < 0.01 % (0.01-0.03)
[2025-05-08 19:44] LABS: Slide Review Reflex No
== END 2025-05-08 23:30 | disposition short-term general hospital (02) ==
PROVIDERS: Emergency Provider Emergency Medicine; PCP Family Medicine
DX: K85.90 Acute pancreatitis without necrosis or infection, unspecified (principal); K86.89 Other specified diseases of pancreas
CPT/HCPCS: 36415; 80053; 82077; 83605; 83690; 85025; 93005; 94761; 99284; 99285; J1171; J2405; J7030